=== PATIENT | female | born 1995 | race Caucasian/White ===

== ENCOUNTER 2019-07-23 08:17 | Outpatient (CLI) | payer MEDICAID, SELFPAY ==
[2019-07-23] VITALS (13 sets, daily range): BP systolic 105–125; BP diastolic 58–73; PULSE 58–93; RESP 16–18; TEMP 36.8; BMI 26.3
[2019-07-23] MEDS: acetaminophen 325 mg Tablet 650 MG PO (09:12)
[2019-07-23 10:21] LABS: Bilirubin Urine Neg (Negative); Blood Urine Neg (Negative); Glucose Urine UA Norm (Normal); Ketones Urine Negative (Negative); Nitrate Urine Negative (Negative); Protein Urine Neg (Negative); Urine Appearance SL Hazy (CLEAR); Urine Color Yellow (Yellow); Urobilinogen Urine Norm (Negative); pH Urine 6.5 (5-7)
[2019-07-23 10:22] LABS: Bacteria Urine 1+; Leukocyte Esterase Urine Negative (Negative); RBC Urine 0-4 /hpf (0-2); WBC Urine 0-4 /hpf (0-5)
== END 2019-07-23 11:24 | disposition home or self-care (01) ==
PROVIDERS: Family Provider Family Medicine; PCP Family Medicine; Visit Provider Family Medicine
DX: O26.899 Other specified pregnancy related conditions, unspecified trimester (principal); Z3A.00 Weeks of gestation of pregnancy not specified; R10.9 Unspecified abdominal pain
CPT/HCPCS: 59025; 81001; 99211

== ENCOUNTER 2019-07-28 20:30 | Outpatient (CLI) | payer MEDICAID, SELFPAY ==
[2019-07-28 20:30] VITALS: BMI 26.3
[2019-07-28 21:50] VITALS: BP 114/64; PULSE 72; RESP 16; TEMP 36.8
[2019-07-28 21:51] LABS: Add Urine Microscopic? NO
[2019-07-28 22:07] LABS: Blood Urine Neg (Negative); Glucose Urine UA Norm (Normal); Ketones Urine 3+ (Negative); Protein Urine Neg (Negative); Urine Appearance Clear (CLEAR); Urine Color Yellow (Yellow); pH Urine 5 (5-7)
[2019-07-28 22:08] LABS: Bilirubin Urine 1+ (NEGATIVE); Leukocyte Esterase Urine Negative (Negative); Nitrate Urine Negative (Negative); Urobilinogen Urine 1 mg/dL (Negative)
[2019-07-28 22:30] VITALS: BP 114/64; PULSE 72; RESP 16; TEMP 36.8
== END 2019-07-28 22:34 | disposition home or self-care (01) ==
PROVIDERS: Family Provider Family Medicine; PCP Family Medicine; Visit Provider Family Medicine
DX: O36.8190 Decreased fetal movements, unspecified trimester, not applicable or unspecified (principal); Z3A.00 Weeks of gestation of pregnancy not specified; M54.9 Dorsalgia, unspecified; M25.559 Pain in unspecified hip; R10.2 Pelvic and perineal pain
CPT/HCPCS: 81003; 99211

== ENCOUNTER 2019-08-08 13:43 | Outpatient (CLI) | payer MEDICAID, SELFPAY ==
[2019-08-08 14:04] VITALS: RESP 15; TEMP 36.9
[2019-08-08 14:05] VITALS: BP 114/61; PULSE 88
[2019-08-08 14:19] VITALS: BP 0/0
[2019-08-08 14:21] VITALS: BP 123/71; PULSE 87
[2019-08-08 14:29] LABS: Nitrazine Paper, PH Negative
[2019-08-08 14:49] VITALS: BMI 25.9
== END 2019-08-08 14:30 | disposition home or self-care (01) ==
LOC: OPOB 13:53 → OBGYN 14:26 → OPOB 08-09 12:38
PROVIDERS: Family Provider Family Medicine; PCP Family Medicine; Visit Provider Family Medicine
DX: O26.899 Other specified pregnancy related conditions, unspecified trimester (principal); Z3A.00 Weeks of gestation of pregnancy not specified; R10.9 Unspecified abdominal pain; N89.8 Other specified noninflammatory disorders of vagina
CPT/HCPCS: 59025; 83986; 99211

== ENCOUNTER 2019-09-02 01:48 | Inpatient (IN) | payer MEDICAID, SELFPAY ==
[2019-09-01 23:41] VITALS: BP 126/67; PULSE 83
[2019-09-02] VITALS (57 sets, daily range): BP systolic 0–144; BP diastolic 0–83; PULSE 57–130; RESP 16–21; TEMP 36.4–36.9; O2SAT 82–100; BMI 26.9; BMI 31.1
[2019-09-02] MEDS: lactated ringers 1,000 ML 999 ML IV (02:22)
[2019-09-02] MEDS: ampicillin 2,000 MG in sodium chloride 0.9% (plus) 50 ML 100 MG IV (02:22)
[2019-09-02] MEDS: fentaNYL 50 mcg/mL INJ 2mL IV (02:24)
[2019-09-02 02:44] LABS: Basophils % 0.2 %; Eosinophils % 0.1 %; Hematocrit 40.8 % (37.0-47.0); Hemoglobin 13.9 g/dL (11.5-15.3); Lymphocytes # 2.5 10^3/uL (0.8-4.8); Lymphocytes % 15.1 %; Mean Corpuscular HGB Conc 34.1 g/dL (30.0-36.0); Mean Corpuscular Hemoglobin 32.2 pg (28.0-34.0); Mean Corpuscular Volume 94.4 fL (81-99); Mean Platelet Volume 10.3 fL (7.4-10.4); Neutrophils % 78.1 %; Nucleated Red Blood Cells % 0 %; Platelet Count 172 10^3/cmm (130-400); Red Blood Count 4.32 10^6/uL (4.1-5.3); Red Cell Distribution Width 13.6 % (12.1-15.1); White Blood Count 16.6 10^3/uL (4.0-10.0)
--- NOTE | 2019-09-02 03:45 | P.ANESASSM_ITS ---
Pre-Anesthetic Assessment Pre-Anesthetic Assessment: Height/Weight: Height 1.7 m Weight 90.265 kg Pulse Resp BP Pulse Ox 81 20 H 127/73 98 09/02/19 03:41 09/02/19 02:24 09/02/19 03:41 09/02/19 03:40 Preop Diagnosis: labor pain Proposed Procedure: labor epidural Was Beta Yayo taken within 24 hours: N/A Social: Social History: Tobacco Packs per day: 07/24 Exam: Pre-Anes Outpt Exam: alert, oriented x 3, clear to auscultation bilaterally and regular rate & rhythm Airway: Submandibular: WNL Cervical ROM: WNL MP: 1 Pulmonary: Pulmonary: None reported CV/HEM: CV/HEM: None reported : : None reported Hepatic: Hepatic: None reported GI: GI: None reported Metabolic: Metabolic: None reported Musc/skel: Musc/skel: None reported Neuropsych: Neuropsych: Anxiety and Depression Anesthetic Plan: ASA status: 2 Anesthesia: Anesthesia Evaluation and R egional (specify below) Risk of > 500 ml blood loss (7ml/kg in children): No Meds/Allergies Current Medications: Current Medications Generic Name Dose Route Start Last Admin Trade Name Freq PRN Reason Stop Dose Admin Fentanyl 25 - 100 mcg 09/02/19 01:46 09/02/19 02:24 Sublimaze IV 25 mcg Q1H PRN Administration SEVERE PAIN Lactated Ringer's 1,000 mls @ 999 m ls/hr 09/02/19 01:46 09/02/19 02:22 Lactated Ringers IV 999 mls/hr .Q1H1M PRN Administration Per L&D Rescitati on Protocol Ampicillin Sodium 2,000 mg/ 50 mls @ 100 mls/ hr 09/02/19 02:00 09/02/19 02:22 Sodium Chloride IV 100 mls/hr ONCE JULIA Administration Protocol [facility] Anesthesia Female Reproductive History: : 1 Data Anesthesia CBC & Chem 7: 09/02/19 02:34 Other Labs: Laboratory Results - last 48 hr 09/02/19 02:34 WBC 16.6 H RBC 4.32 Hgb 13.9 Hct 40.8 MCV 94.4 MCH 32.2 MCHC 34.1 RDW 13.6 Plt Count 172 MPV 10.3 Neut % (Auto) 78.1 Lymph % (Auto) 15.1 [place] % (Auto) 6.0 Eos % (Auto) 0.1 Baso % (Auto) 0.2 Neut # (Auto) 13.0 H Lymph # (Auto) 2.5 [place] # (Auto) 1.0 H Eos # (Auto) 0.0 Baso # (Auto) 0.0 Nucleated RBC % (auto) 0 Nucleated RBCs # 0.0 Cardiac Studies: No Data to Display
--- NOTE | 2019-09-02 03:48 | ANES.PROC ---
Anesthesia Procedures Procedure/Date: 09/02/19 Epidural: Time Out Performed: Yes Consents Signed: Procedure Consent Consent: requested by attending/covering physician, from patient, risks and benefits reviewed and patient agrees to proceed Lumbar Level: L3-L4 Epidural position: sitting Epidural procedure: sterile prep of area, 1% lidocaine to numb the area (3 cc skin wheel), 18 g needle, negative for paresthesia passed, neg for paresthesia, test dose given (3 cc), 0.2% Ropivacaine bolus ml (8 cc), placed PCEA (13 mls/hr 5 cc Q 10 min x3 ), sterile dressing applied and 0.2% Ropiavacaine @ mls/hr
[2019-09-02] MEDS: ampicillin 1,000 MG in sodium chloride 0.9% (plus) 50 ML 100 MG IV (06:15)
[2019-09-02] MEDS: oxytocin 30 UNIT/500 ML BAG 600 UNIT IV (08:17)
[2019-09-02] MEDS: prenatal vitamin Capsule 1 CAP PO (11:39)
[2019-09-02] MEDS: lanolin oint 7 gm 1 APPLIC TOPICAL (11:40)
[2019-09-02] MEDS: benzocaine-menthol 78 gm Canister 1 SPRAY TOPICAL (11:40)
[2019-09-02] MEDS: docusate sodium 100 mg Capsule PO (11:40)
[2019-09-02 13:07] LABS: Amphetamines Screen Urine Negative (Negative); Barbiturates Screen Urine Negative (Negative); Benzodiazepines Screen Urine Negative (Negative); Cocaine Screen Urine Negative (Negative); Opiate Screen Urine Negative (Negative); PCP Screen Urine Negative (Negative); THC Screen Urine Negative (Negative)
--- NOTE | 2019-09-02 18:55 | P.PCNOB_ITS ---
Delivery Note: Date of delivery: September 02, 2019 Pre-Delivery Course: The patient presented to the hospital in active labor. She was given group B strep antibiotics per protocol. An epidural was placed. An amniotomy was performed. She progressed to complete without difficulty. Delivery: DELIVERY: The patient progressed to complete without difficulty. She delivered a male with a weight of 5 pounds 11 ounces with Apgars of 8, 9. The baby was delivered from the WOODROW position. The baby's mouth and nose were suctioned at the site of the perineum. The baby was then completely delivered and placed on the mother's abdomen. The cord was then clamped and cut. There was a nuchal cord x1. There was no meconium. The placenta and 3 vessel cord were delivered intact shortly thereafter. The perineum and vaginal vault were carefully examined. No lacerations were noted. Both the mother and the baby were in stable condition. A&P Assessment and plan (1) 39 weeks gestation of : Status: Acute Code(s): Z3A.39 - 39 weeks gestation of (2) Spontaneous vaginal delivery: Status: Acute Code(s): O80 - Encounter for full-term uncomplicated delivery Coding Level of Care Code Acute Instructor Modeling for Chg Fwd Diagnoses 39 weeks gestation of Z3A.39 Spontaneous vaginal delivery O80
[2019-09-02 20:49] LABS: Hematocrit 40.5 % (37.0-47.0); Hemoglobin 13.5 g/dL (11.5-15.3); Mean Corpuscular HGB Conc 33.3 g/dL (30.0-36.0); Mean Platelet Volume 10.4 fL (7.4-10.4); Platelet Count 186 10^3/cmm (130-400); Red Blood Count 4.09 10^6/uL (4.1-5.3); Red Cell Distribution Width 13.7 % (12.1-15.1)
[2019-09-03 06:00] VITALS: BP 97/68; PULSE 70; RESP 16; TEMP 36.4
--- NOTE | 2019-09-03 07:26 | PM.OBGYDC ---
Discharge Providers SUPERVISOR FRONT Date of Admission: 09/02/19 01:48 Date of Discharge: 09/03/19 Attending Provider at Admission: Liu Lenz MD Attending Provider at Discharge: Mickey Camarillo MD Primary Care Provider: Mickey Camarillo MD Diagnoses at Discharge Discharge Diagnosis (1) 39 weeks gestation of : Status: Acute (2) Spontaneous vaginal delivery: Status: Acute Reason for Visit Reason for Visit: Reason For Visit: contractions Hospital Course Hospital Course: Patient arrived to the hospital in spontaneous labor at 39 weeks gestation. She delivered by spontaneous vaginal delivery a healthy, viable male infant with no problems. Apgars were 8 and 9 at 1 5 minutes respectively. Since delivery, the patient is done extremely well. She is breast-feeding fair and appears to be very stable to be discharged home. Discharge Summary: Patient is discharged in stable condition at this time. Information Peripartum Data: Infant Delivery Method: Vaginal Physical Exam Const: COMMON NORMALS: no apparent distress and oriented x3 GENERAL APPEARANCE: comfortable and well kempt ORIENTATION/CONSCIOUSNESS: Yes awake HENMT: COMMON NORMALS: normocephalic HEAD & SCALP: normocephalic Neck/C-Spine: COMMON NORMALS: full ROM Chest: COMMONS NORMALS: inspection of chest normal Resp: COMMON NORMALS: normal respiratory effort, no retractions, no use of accessory muscles and clear to auscultation bilaterally AUSCULTATION: clear to auscultation bilaterally Cardio: COMMON NORMALS: regular rate and regular rhythm RATE: regular rate RHYTHM: regular rhythm GI: COMMON NORMALS: soft to palpation INSPECTION: Yes normal to inspection PALPATION: Yes soft : COMMON NORMALS: Yes no CVA tenderness BLADDER/KIDNEY EXAM: Yes no CVA tenderness Back/Pelvis: COMMON NORMALS: no CVA tenderness Extremity: COMMON NORMALS: full ROM GENERAL: Yes normal exam except as noted Neuro: COMMON NORMALS: oriented x3 Psych: APPEARANCE: Yes well kempt Discharge Data Data Completed and Pending: Labs from last 24 hours 09/02/19 09/02/19 20:25 12:03 WBC 20.0 H RBC 4.09 L Hgb 13.5 Hct 40.5 MCV 99.0 MCH 33.0 MCHC 33.3 RDW 13.7 Plt Count 186 MPV 10.4 Urine Opiates Scre en Negative Ur Barbiturates Sc reen Negative Ur Phencyclidine S crn Negative Ur Amphetamines Sc reen Negative U Benzodiazepines Scrn Negative Urine Cocaine Scre en Negative U Marijuana (THC) Screen Negative Vitals: Last Vital Signs Temp 97.6 F 09/03/19 06:00 Pulse 70 09/03/19 06:00 Resp 16 09/03/19 06:00 BP 97/68 09/03/19 06:00 Pulse Ox 97 09/02/19 18:40 Discharge Plan Discharge Patient Disposition: Home, Self-Care Condition: Stable Prescriptions: New ibuprofen 800 mg Tablet 800 mg PO TID Qty: 90 RF: 2 docusate sodium 100 mg Capsule 100 mg PO BID Qty: 60 RF: 1 Continued Vitamin 27 mg iron- 0.8 mg Tablet 1 tab PO DAILY RF: 0 Discharge Orders: Discharge Order (Routine); Ordered 09/03/19 Ordered By: Mickey Camarillo Referrals: Mickey Camarillo MD [Primary Care Provider] - Discharge Diet: Usual diet Discharge Activity: Resume usual activity Discharge Attestations SUPERVISOR FRONT Time Spent in Discharge Care*: less than 30 min Specific Discharge Activities: Specific discharge activities: educating patient, educating and/or supporting family/caregiver and documenting/other paperwork Status at Discharge: Cognitive status at discharge: cognitively intact, Behavioral status at discharge: cooperative, Functional status at discharge: independent ambulation Overall status at discharge: patient is back to baseline Coding Level of Care Code Acute Automotive Glass Mechanic for Chg Fwd Diagnoses 39 weeks gestation of Z3A.39 Spontaneous vaginal delivery O80
[2019-09-03] MEDS: prenatal vitamin Capsule 1 CAP PO (08:42)
[2019-09-03] MEDS: docusate sodium 100 mg Capsule PO (08:42)
[2019-09-03 08:45] VITALS: BP 115/69; PULSE 82; RESP 17; TEMP 36.4
[2019-09-03 09:20] VITALS: BP 115/59; PULSE 82; RESP 17; TEMP 36.4
[2019-09-03] MEDS: measles,mumps,rubella pf Vial (w/diluent) 0.5 ML SUBCUT (09:34)
[2019-09-03 09:47] VITALS: BP 115/59; RESP 17; TEMP 36.4
== END 2019-09-03 09:56 | disposition home or self-care (01) | DRG 807 ==
LOC: OBGYN 09-03 07:25 → OPOB 09-03 07:47
PROVIDERS: Admitting Provider Family Medicine; Family Provider Family Medicine; PCP Family Medicine; Visit Provider Family Medicine
DX: O99.824 Streptococcus B carrier state complicating childbirth (principal); Z37.0 Single live birth; Z3A.39 39 weeks gestation of pregnancy; O69.81X0 Labor and delivery complicated by cord around neck, without compression, not applicable or unspecified; Z23 Encounter for immunization
CPT/HCPCS: 12345; 36415; 51702; 59409; 80307; 85025; 85027; 90471; 90686; 90707; 96372; 98960; 99211; J0290; J2795; J3010

== ENCOUNTER 2021-02-28 11:15 | Outpatient (CLI) | payer MEDICAID, SELFPAY ==
[2021-02-28 11:15] VITALS: BMI 32.4
[2021-02-28 11:34] VITALS: BP 123/60; PULSE 79; TEMP 36.3
[2021-02-28 11:43] VITALS: RESP 17
[2021-02-28 11:49] VITALS: BP 112/59; PULSE 71
[2021-02-28 12:04] VITALS: BP 113/65; PULSE 85
[2021-02-28 12:19] VITALS: BP 120/60; PULSE 79
[2021-02-28 12:30] LABS: Bilirubin Urine Neg (Negative); Blood Urine Neg (Negative); Glucose Urine UA Norm (Normal); Ketones Urine 1+ (Negative); Leukocyte Esterase Urine 2+ (Negative); Nitrate Urine Negative (Negative); Protein Urine Neg (Negative); Sulfosalicylic Acid Urine Negative (Negative); Urine Appearance Cloudy (CLEAR); Urine Color Yellow (Yellow); Urobilinogen Urine 1 mg/dL (Negative); pH Urine 8 (5-7)
[2021-02-28 12:31] LABS: RBC Urine 0-4 /hpf (0-2); WBC Urine 25-40 /hpf (0-5)
[2021-02-28 12:32] LABS: Add Urine Culture? No; Amorphous Sediment Urine 2+ /hpf; Bacteria Urine 1+ /hpf; Coarse Granular Casts Urine RARE /lpf; Mucus Urine TRACE /hpf; Squamous Epithelial Cell Urine 25-40 /hpf (0-5)
== END 2021-02-28 12:35 | disposition home or self-care (01) ==
LOC: OPOB 11:19 → OBGYN 11:21
PROVIDERS: PCP Family Medicine; Visit Provider Family Medicine
DX: O26.899 Other specified pregnancy related conditions, unspecified trimester (principal); Z3A.00 Weeks of gestation of pregnancy not specified; R10.9 Unspecified abdominal pain
CPT/HCPCS: 59025; 81001; 99211

== ENCOUNTER 2021-03-05 22:24 | Outpatient (CLI) | payer MEDICAID, SELFPAY ==
[2021-03-05 22:34] VITALS: BP 139/65; PULSE 90
[2021-03-05 22:49] VITALS: BMI 32.5
[2021-03-05 23:01] LABS: Glucose Urine UA Norm (Normal); Ketones Urine 1+ (Negative); Protein Urine Neg (Negative); Specific Gravity, Urine 1.005 (1.005-1.030); Urine Appearance Clear (CLEAR); Urine Color Yellow (Yellow); pH Urine 7 (5-7)
[2021-03-05 23:02] LABS: Bilirubin Urine Neg (Negative); Blood Urine Neg (Negative); Leukocyte Esterase Urine 1+ (Negative); Nitrate Urine Negative (Negative); Urobilinogen Urine 8 mg/dL (Negative)
[2021-03-05 23:03] LABS: Add Urine Culture? No; Bacteria Urine TRACE /hpf; RBC Urine 0-4 /hpf (0-2)
[2021-03-05 23:26] VITALS: BP 97/53; PULSE 83
[2021-03-05 23:35] VITALS: RESP 16
--- NOTE | 2021-03-07 08:09 | PC.NURSE ---
Left voicemail on [facility] line. Prescription for amoxicillin 500 mg BID for 7 days, dispense 14, no refills per Dr. Camarillo's order.
== END 2021-03-05 23:35 | disposition home or self-care (01) ==
LOC: OPOB 22:25 → OBGYN 22:27
PROVIDERS: PCP Family Medicine; Visit Provider Family Medicine
DX: O26.899 Other specified pregnancy related conditions, unspecified trimester (principal); Z3A.00 Weeks of gestation of pregnancy not specified; R10.9 Unspecified abdominal pain
CPT/HCPCS: 59025; 81001; 99211

== ENCOUNTER 2021-03-17 13:25 | Outpatient (CLI) | payer MEDICAID, SELFPAY ==
[2021-03-17 13:25] VITALS: BMI 33.3
[2021-03-17 13:48] VITALS: BP 130/71; PULSE 96
[2021-03-17 14:03] VITALS: BP 126/71; PULSE 81
[2021-03-17 14:18] VITALS: BP 120/67; PULSE 84
[2021-03-17 14:33] VITALS: BP 130/66; PULSE 82
[2021-03-17 14:48] VITALS: BP 119/59; PULSE 76
[2021-03-17 15:01] VITALS: RESP 17
== END 2021-03-17 15:10 | disposition home or self-care (01) ==
LOC: OPOB 13:31 → OBGYN 13:32
PROVIDERS: PCP Family Medicine; Visit Provider Family Medicine
DX: O26.899 Other specified pregnancy related conditions, unspecified trimester (principal); Z3A.00 Weeks of gestation of pregnancy not specified; R10.9 Unspecified abdominal pain
CPT/HCPCS: 59025; 99211

== ENCOUNTER 2021-03-25 22:20 | Inpatient (IN) | payer MEDICAID, SELFPAY ==
[2021-03-25 19:40] VITALS: BMI 34.4
[2021-03-25 19:43] VITALS: BP 116/64; PULSE 90; TEMP 36.5
[2021-03-25 21:45] VITALS: BP 122/61; PULSE 76
[2021-03-25] MEDS: lactated ringers 1,000 ML 999 ML IV (23:00)
[2021-03-25 23:24] LABS: Basophils % 0.2 %; Eosinophils # 0.1 10^3/uL (0.0-0.8); Eosinophils % 0.6 %; Hematocrit 36.3 % (37.0-47.0); Hemoglobin 12.2 g/dL (11.5-15.3); Lymphocytes # 1.9 10^3/uL (0.8-4.8); Lymphocytes % 16.1 %; Mean Corpuscular HGB Conc 33.6 g/dL (30.0-36.0); Mean Corpuscular Hemoglobin 31.8 pg (28.0-34.0); Mean Corpuscular Volume 94.5 fl (81-99); Mean Platelet Volume 10.2 fL (7.4-10.4); Monocytes # 0.9 10^3/uL (0.2-0.9); Monocytes % 7.4 %; Neutrophils # 8.94 10^3/uL (1.8-7.7); Neutrophils % 74.7 %; Nucleated Red Blood Cells % 0 %; Platelet Count 249 10^3/cmm (130-400); Red Blood Count 3.84 10^6/uL (4.1-5.3); Red Cell Distribution Width 14.1 % (12.1-15.1)
[2021-03-26] VITALS (29 sets, daily range): BP systolic 107–145; BP diastolic 53–92; PULSE 57–90; RESP 16–18; TEMP 35.9–36.2; O2SAT 100
[2021-03-26] MEDS: lactated ringers 1,000 ML 999 ML IV (00:28)
--- NOTE | 2021-03-26 00:39 | P.ANESASSM_ITS ---
Pre-Anesthetic Assessment Pre-Anesthetic Assessment: Height/Weight: Height 1.7 m Weight 99.79 kg Temp Pulse BP Pulse Ox 97.7 F 78 127/75 100 03/25/21 19:43 03/26/21 00:32 03/26/21 00:28 03/26/21 00:32 Preop Diagnosis: labor pain Proposed Procedure: labor epidural Was Beta Yayo taken within 24 hours: N/A Was Clonidine taken within 24 hours: N/A Last intake: 03/25/211944 Social: Social History: Tobacco Comment: vapes Exam: Pre-Anes Outpt Exam: alert, oriented x 3 and clear to auscultation bilaterally Airway: Submandibular: WNL Cervical ROM: WNL MP: 2 Dentition: Other Additional comments: tongue piercing History/ROS: No significant history except as noted Pulmonary: Pulmonary: None reported CV/HEM: CV/HEM: None reported : : None reported Hepatic: Hepatic: None reported GI: GI: GERD and None reported Metabolic: Metabolic: None reported Musc/skel: Musc/skel: None reported Neuropsych: Neuropsych: None reported Anesthetic Plan: ASA status: 2 Anesthesia: Regional (specify below) Risk of > 500 ml blood loss (7ml/kg in children): No Meds/Allergies Current Medications: Current Medications Generic Name Dose Route Start Last Admin Trade Name Freq PRN Reason Stop Dose Admin Ropivacaine 200 mg in 100 mls @ 13 mls/hr 03/25/21 23:15 03/26/21 00:29 Naropin Premix EPIDURAL 13 mls/hr .Q7H42M JULIA Administration Lactated Ringer's 1,000 mls @ 999 m ls/hr 03/25/21 23:09 03/26/21 00:28 Lactated Ringers IV 999 mls/hr .Q1H1M PRN Administration See label comment s Lactated Ringer's 1,000 mls @ 999 m ls/hr 03/25/21 23:09 03/26/21 00:29 Lactated Ringers IV Infused .Q1H1M PRN Infusion Per L&D Rescitati on Protocol [facility] Anesthesia Female Reproductive History: : 2 Data Anesthesia CBC & Chem 7: 03/25/21 22:45 Other Labs: Laboratory Results - last 48 hr 03/25/21 22:45 WBC 12.0 H RBC 3.84 L Hgb 12.2 Hct 36.3 L MCV 94.5 MCH 31.8 MCHC 33.6 RDW 14.1 Plt Count 249 MPV 10.2 Neut % (Auto) 74.7 Lymph % (Auto) 16.1 [place] % (Auto) 7.4 Eos % (Auto) 0.6 Baso % (Auto) 0.2 Neut # (Auto) 8.94 H Lymph # (Auto) 1.9 [place] # (Auto) 0.9 Eos # (Auto) 0.1 Baso # (Auto) 0.0 Nucleated RBC % (auto) 0 Nucleated RBCs # 0.0 Cardiac Studies: No Data to Display
[2021-03-26] MEDS: oxytocin 30 UNIT/500 ML BAG 600 UNIT IV (00:45)
--- NOTE | 2021-03-26 00:46 | ANES.PROC ---
Anesthesia Procedures Procedure/Date: 03/26/21 Epidural: Time Out Performed: Yes Consents Signed: Procedure Consent Consent: requested by attending/covering physician, from patient and risks and benefits reviewed Lumbar Level: L3-L4 Epidural position: sitting Epidural procedure: sterile prep of area, 1% lidocaine to numb the area, negative for paresthesia passed, test dose given, 1.5% xylocaine 1:200k epi, 0.2% Ropivacaine bolus ml (13), placed PCEA (13 ml/hr), no systemic response, L.U.D. no apparent complications and 0.2% Ropiavacaine @ mls/hr (13ml/hr) Additional Comments: JUNIOR at 7 cm catheter threaded to 14 cm
--- NOTE | 2021-03-26 01:20 | PM.OPHPUD ---
Labor & Delivery H&P Update Date of Procedure: March 26, 2021 Date H&P Performed: 03/25/21 H&P update information: I have reviewed H&P completed within last 30 days, I have examined patient prior to procedure and Changes to prior documentation as noted here (patient was seen yesterday afternoon at the clinic and was approximately 3 cm dilated. She came in later 3 to 4 cm dilated and quickly is dilated and presently is 9 cm dilated.) Admission Diagnosis: Preop diagnosis: labor pain Primary indication for procedure: Term in spontaneous labor. Planned procedure: Spontaneous vaginal delivery.
[2021-03-26] MEDS: dextrose 5%-lactated ringers 1,000 ML 125 ML IV (02:00)
--- NOTE | 2021-03-26 02:14 | PM.DELIVERY ---
Delivery Note: Date of delivery: March 26, 2021 This 25-year-old at arrived at [facility] labor and delivery department at 39 weeks gestation. She was approximately 3-1/2 cm dilated upon arrival and al often. She was getting more uncomfortable and was admitted to the hospital. She dilated fairly quickly especially after epidural anesthesia was placed and dilated to complete cervical dilatation. The patient pushed for several contractions and was able to deliver by spontaneous vaginal delivery at 00 43 a healthy, viable female . The 's mouth and nose were suctioned at the perineum and the was then placed on mother's abdomen. After approximately 1 minute the umbilical cord was clamped and then cut by the infant's father. The umbilical cord had 3 blood vessels. There was no nuchal cord. The placenta delivered spontaneously at 00 45. Apgars were 8 and 9 at 1 and 5 minutes respectively and the weighed 7 pounds 1 ounces. There was a second-degree midline episiotomy prior to delivery with no extension. This was repaired using Vicryl suture in a layered fashion. Local anesthesia was also applied with 2% lidocaine without epinephrine for the episiotomy and repair. There were no complications. Mother and infant are doing well and estimated blood loss was approximately 224 mL. Pre-Delivery Course: This patient was followed by this physician throughout her course. There were no major problems or concerns throughout her course. Her blood type was A+ with antibody screen negative. Hepatitis B, hepatitis C, RPR and HIV were negative. Rubella was immune and group B strep was negative. Covid testing was also negative. The patient was seen the day prior to the day of delivery in the office and was felt at that time to probably be in early labor. Delivery: Spontaneous vaginal delivery. Post-Delivery Status: Patient is doing well at this time and will be followed for routine care. A&P Assessment and plan (1) Normal spontaneous vaginal delivery: Patient is doing well at this time and will be followed for routine care. We will adjust treatment and orders as necessary. Status: Acute Coding Level of Care Code Acute Business Operations Consultant for Bishnu Alba Diagnoses Normal spontaneous vaginal delivery O80
[2021-03-26] MEDS: lidocaine 2% INJ 20 mL INJECTION (03:56)
[2021-03-26] MEDS: lactated ringers 1,000 ML 125 ML IV (03:57)
[2021-03-26 05:04] LABS: Amphetamines Screen Urine Negative (Negative); Barbiturates Screen Urine Negative (Negative); Benzodiazepines Screen Urine Negative (Negative); Cocaine Screen Urine Negative (Negative); Opiate Screen Urine Negative (Negative); PCP Screen Urine Negative (Negative); THC Screen Urine Positive (Negative)
[2021-03-26] MEDS: HYDROcodone-acetaminophen 5-325 mg Tablet PO (05:59)
[2021-03-26] MEDS: prenatal vitamin Capsule 1 CAP PO (09:59)
[2021-03-26] MEDS: docusate sodium 100 mg Capsule PO ×2 (09:59→18:57)
[2021-03-26] MEDS: ibuprofen 800 mg tablet PO ×3 (09:59→20:18)
[2021-03-26 16:22] LABS: Hematocrit 35.7 % (37.0-47.0); Hemoglobin 11.9 g/dL (11.5-15.3); Mean Corpuscular HGB Conc 33.3 g/dL (30.0-36.0); Mean Corpuscular Hemoglobin 32.2 pg (28.0-34.0); Mean Corpuscular Volume 96.7 fl (81-99); Mean Platelet Volume 10.1 fL (7.4-10.4); Platelet Count 233 10^3/cmm (130-400); Red Blood Count 3.69 10^6/uL (4.1-5.3); Red Cell Distribution Width 14.1 % (12.1-15.1); White Blood Count 12.9 10^3/uL (4.0-10.0)
--- NOTE | 2021-03-27 03:50 | PC.NURSE ---
pt educated on use of slow-flow nipple and paced feeding.
[2021-03-27 04:09] VITALS: BP 117/61; PULSE 65; TEMP 36.1
--- NOTE | 2021-03-27 08:01 | ANE.PACU2 ---
Inpatient post-anesthesia follow up: Airway intact: Yes Vital signs: Temperature 97.8 F Pulse Rate 75 Respiratory Rate 16 Blood Pressure 120/59 Pulse Oximetry 100 Oxygen Delivery Me thod Room Air Oxygen Flow Rate Fraction of Inspir ed Oxygen Hydration adequate: Yes Nausea and vomiting: No Pain level: 2 Mental status: Baseline
--- NOTE | 2021-03-27 08:06 | P.DS_ITS ---
Discharge Providers CUSTOMER ACCOUNT COORDINATOR Date of Admission: 03/25/21 22:20 Date of Discharge: 03/27/21 Attending Provider at Admission: Mickey Camarillo MD Attending Provider at Discharge: Mickey Camarillo MD Primary Care Provider: Mickey Camarillo MD Diagnoses at Discharge Discharge Diagnosis (1) Normal spontaneous vaginal delivery: Status: Acute Reason for Visit Reason for Visit: Contractions Hospital Course Hospital Course Patient delivered by spontaneous vaginal delivery early yesterday morning with no problems or concerns. She had onset of labor at home at 38 weeks and 6 days and delivered at 39 weeks gestation. She has had mild lochia and no significant clots or cramping. She is ambulating well and tolerating a regular diet and is felt to be stable for discharge home. Information Peripartum Data: Infant Delivery Method: Vaginal Physical Exam Const: COMMON NORMALS: no acute distress GENERAL APPEARANCE: cooperative and comfortable HENMT: COMMON NORMALS: moist oral mucous membranes Resp: COMMON NORMALS: normal respiratory effort, No retractions, No use of accessory muscles and clear to auscultation bilaterally AUSCULTATION: clear to auscultation bilaterally Cardio: COMMON NORMALS: regular rate, regular rhythm and No murmurs present (Cardio) RATE: regular rate RHYTHM: regular rhythm GI: COMMON NORMALS: Normal to inspection, nondistended, normoactive bowel sounds present and Soft to palpation (Fundus is firm and well below the umbilicus.) PALPATION: Yes Soft to palpation (Fundus is firm and well below the umbilicus.) Extremity: COMMON NORMALS: normal to inspection, full ROM, no calf tenderness and no pedal edema Neuro: COMMON NORMALS: no focal motor deficits and no sensory deficits noted Psych: COMMON NORMALS: mental status grossly normal, cooperative and normal affect Skin: COMMON NORMALS: no rashes or lesions noted GENERAL SKIN EXAM: no rashes or lesions noted Discharge Data Data Completed and Pending: Labs from last 24 hours 03/26/21 15:35 WBC 12.9 H RBC 3.69 L Hgb 11.9 Hct 35.7 L MCV 96.7 MCH 32.2 MCHC 33.3 RDW 14.1 Plt Count 233 MPV 10.1 Vitals: Last Vital Signs Temp 97.0 F L 03/27/21 04:09 Pulse 65 03/27/21 04:09 Resp 16 03/26/21 21:55 BP 117/61 03/27/21 04:09 Pulse Ox 100 03/26/21 00:52 Discharge Plan Discharge Patient Disposition: Home Condition: Stable Prescriptions: New docusate sodium 100 mg Capsule 100 mg PO BID Qty: 60 RF: 1 ibuprofen 800 mg Tablet 800 mg PO TID Qty: 90 RF: 1 Continued Vitamin 27 mg iron- 0.8 mg Tablet 1 tab PO DAILY RF: 0 Discharge Orders: Discharge Order (Routine); Ordered 03/27/21 Ordered By: Mickey Camarillo Referrals: Mickey Camarillo MD [Primary Care Provider] - 6 Weeks Discharge Diet: Usual diet Discharge Activity: Resume usual activity Patient Instructions: Opioid Safety Discharge Attestations CUSTOMER ACCOUNT COORDINATOR Time Spent in Discharge Care*: less than 30 min Status at Discharge: Cognitive status at discharge: cognitively intact , Behavioral status at discharge: cooperative , Coding Level of Care Code Acute Blow Machine Tender Starch Spraying for Chg Fwd Diagnoses Normal spontaneous vaginal delivery O80
[2021-03-27] MEDS: docusate sodium 100 mg Capsule PO (10:02)
[2021-03-27] MEDS: ibuprofen 800 mg tablet PO (10:02)
[2021-03-27] MEDS: prenatal vitamin Capsule 1 CAP PO (10:02)
[2021-03-27 10:39] VITALS: TEMP 36.1
[2021-03-27 10:40] VITALS: BP 120/59; PULSE 75
[2021-03-27 11:07] VITALS: BP 120/59; PULSE 75; TEMP 36.6
== END 2021-03-27 11:00 | disposition home or self-care (01) | DRG 807 ==
LOC: OPOB 22:23 → OBGYN 22:23
PROVIDERS: Admitting Provider Family Medicine; PCP Family Medicine; Visit Provider Family Medicine
DX: O80 Encounter for full-term uncomplicated delivery (principal); Z37.0 Single live birth; Z3A.39 39 weeks gestation of pregnancy; Z20.822 Contact with and (suspected) exposure to COVID-19
CPT/HCPCS: 36415; 59409; 80306; 85025; 85027; 99211; J2795

== ENCOUNTER 2021-10-10 22:48 | Inpatient (IN) | payer MEDICAID, SELFPAY ==
[2021-10-10 22:59] VITALS: BP 159/83; PULSE 90; RESP 16; TEMP 36.4; O2SAT 98
[2021-10-10 23:02] VITALS: BMI 29.4
[2021-10-11 00:14] LABS: HCG Qualitative Urine. Negative (Negative)
[2021-10-11 00:18] LABS: Basophils # 0.1 10^3/uL (0.0-0.1); Basophils % 0.6 %; Eosinophils # 0.1 10^3/uL (0.0-0.8); Eosinophils % 0.9 %; Hematocrit 44.2 % (37.0-47.0); Hemoglobin 14.4 g/dL (11.5-15.3); Lymphocytes % 42.6 %; Mean Corpuscular HGB Conc 32.6 g/dL (30.0-36.0); Mean Corpuscular Hemoglobin 30.4 pg (28.0-34.0); Mean Corpuscular Volume 93.2 fl (81-99); Mean Platelet Volume 10.2 fL (7.4-10.4); Monocytes # 0.5 10^3/uL (0.2-0.9); Monocytes % 5.3 %; Neutrophils % 50.3 %; Nucleated Red Blood Cells % 0 %; Platelet Count 264 10^3/cmm (130-400); Red Blood Count 4.74 10^6/uL (4.1-5.3); Red Cell Distribution Width 12.7 % (12.1-15.1); White Blood Count 9.4 10^3/uL (4.0-10.0)
[2021-10-11 00:23] LABS: Alanine Aminotransferase 15 U/L (0-33); Albumin Level 4.7 g/dL (3.5-5.2); Alkaline Phosphatase 77 IU/L (35-105); Anion Gap 19.3 (5-19); Aspartate Amino Transferase 17 U/L (0-32); Blood Urea Nitrogen 7 mg/dL (6-20); Calcium 9.6 mg/dL (8.5-10.5); Carbon Dioxide 19 mmol/L (22-29); Chloride 103 mmol/L (98-107); Glomerular Filtration Rate 102.8 mL/min (90-130); Glucose 99 mg/dL (65-115); Osmolality Calculated 284 mOsm/kg (285-295); Potassium 3.3 mmol/L (3.5-5.1); Sodium 138 mmol/L (136-145); Total Bilirubin 0.5 mg/dL (0.15-1.2); Total Protein 7.7 g/dL (6.6-8.7)
[2021-10-11 00:25] LABS: Acetaminophen < 5.0 ug/mL (10-30); Alcohol Level < 10 mg/dL (0-10); Salicylate < 0.3 mg/dL (3-10)
--- NOTE | 2021-10-11 00:27 | ED.C_ITS ---
HPI - Psych General: Chief Complaint: Psychiatric Symptoms Stated Complaint: Depression Time Seen by Provider: 10/10/21 23:12 Source: patient Mode of arrival: ambulatory Limitations: no limitations History of Present Illness: 26-year-old female who states she has chronic depression since age 17. She states that she is also had complicated depression and has a 2-year-old and a 6-month-old. States she has been having increasing depression of late has not been taking her meds she states she has an outpatient appointment but feels like she needs to talk to someone now. She is not actively suicidal denies any thoughts of suicide average states that she has been more depressed. Denies any worsening proving factors. Associated symptoms: Reports depression Review of Systems Const: Denies: fever(s), chills, body aches or change in appetite Eyes: Denies: blurry vision or eye discomfort ENMT: Denies: throat pain or dental pain Card: Denies: chest pain Resp: Denies: dyspnea GI: Denies: abdominal pain, nausea, vomiting or diarrhea : Denies: dysuria Musc: Denies: neck pain or back pain Skin/Breast: Denies: rash Neuro: Denies: headache(s) Psych: Reports: depression Giacomo/Lymph: Denies: easy bruising All/Imm: Denies: urticaria PFSH ED PFSH: Medical History (Updated 10/11/21 @ 01:07 by Danielle Cage MD) Depression Social History (Updated 10/11/21 @ 00:28 by Danielle Cage MD) Substance/Drug Use: never Physical Exam Const: COMMON NORMALS: no acute distress, patient oriented x3 and healthy appearing HENMT: COMMON NORMALS: normocephalic and atraumatic HEAD & SCALP: normocephalic and atraumatic Eye: COMMON NORMALS: Equal, round and reactive pupils present and EOMs intact bilaterally PUPIL: Yes Equal, round and reactive pupils present Neck/C-Spine: COMMON NORMALS: full ROM and supple Chest: COMMONS NORMALS: normal inspection of the chest and normal palpation of entire chest wall Resp: COMMON NORMALS: normal respiratory effort, No retractions, No use of accessory muscles and clear to auscultation bilaterally AUSCULTATION: clear to auscultation bilaterally Cardio: COMMON NORMALS: regular rate, regular rhythm and No murmurs present (Cardio) RATE: regular rate RHYTHM: regular rhythm GI: COMMON NORMALS: Normal to inspection, nondistended, normoactive bowel sounds present, Soft to palpation, non-tender and no masses PALPATION: Yes Soft to palpation Extremity: COMMON NORMALS: normal to inspection and full ROM Neuro: COMMON NORMALS: patient oriented x3, moves all extremities and no focal motor deficits Psych: COMMON NORMALS: mental status grossly normal, Normal thought process present and cooperative THOUGHT PROCESS: Normal thought process present Skin: COMMON NORMALS: no rashes or lesions noted and no wounds GENERAL SKIN EXAM: no rashes or lesions noted Course Vital Signs: Vital signs: Vital Signs Temperature 97.6 F 10/10/21 22:59 Pulse Rate 90 10/10/21 22:59 Respiratory Rate 16 10/11/21 01:51 Blood Pressure 159/83 10/10/21 22:59 Pulse Oximetry 98 10/10/21 22:59 MDM - Psych Medical Decision Making Patient presents here with depression she is not suicidal had patient evaluated by Dr. Hernandez in the came to agreement for her to be admitted voluntarily for her depression she is in agreements spoke to psychiatrist and will admit at this time. Lab Data : 10/10/21 23:33 10/10/21 23:33 Laboratory Results WBC 9.4 10^3/uL (4.0-10.0) 10/10/21 23:33 RBC 4.74 10^6/uL (4.1-5.3) 10/10/21 23:33 Hgb 14.4 g/dL (11.5-15.3) 10/10/21 23:33 Hct 44.2 % (37.0-47.0) 10/10/21 23:33 MCV 93.2 fl (81-99) 10/10/21 23:33 MCH 30.4 pg (28.0-34.0) 10/10/21 23:33 MCHC 32.6 g/dL (30.0-36.0) 10/10/21 23:33 RDW 12.7 % (12.1-15.1) 10/10/21 23:33 Plt Count 264 10^3/cmm (130-400) 10/10/21 23:33 MPV 10.2 fL (7.4-10.4) 10/10/21 23:33 Neut % (Auto) 50.3 % 10/10/21 23:33 Lymph % (Auto) 42.6 % 10/10/21 23:33 [place] % (Auto) 5.3 % 10/10/21 23: Eos % (Auto) 0.9 % 10/10/21 23: Baso % (Auto) 0.6 % 10/10/21 23: Neut # (Auto) 4.70 10^3/uL (1.8-7.7) 10/10/21 23: Lymph # (Auto) 4.0 10^3/uL (0.8-4.8) 10/10/21 23: [place] # (Auto) 0.5 10^3/uL (0.2-0.9) 10/10/21 23: Eos # (Auto) 0.1 10^3/uL (0.0-0.8) 10/10/21 23: Baso # (Auto) 0.1 10^3/uL (0.0-0.1) 10/10/21 23: Nucleated RBC % (auto) 0 % 10/10/21 23: Nucleated RBCs # 0.0 /100WBC 10/10/21 23:33 Sodium 138 mmol/L (136-145) 10/10/21 23:33 Potassium 3.3 mmol/L (3.5-5.1) L 10/10/21 23: Chloride 103 mmol/L (98-107) 10/10/21 23: Carbon Dioxide 19 mmol/L (22-29) L 10/10/21 23:33 Anion Gap 19.3 (5-19) H 10/10/21 23:33 BUN 7 mg/dL (6-20) 10/10/21 23:33 Creatinine 0.7 mg/dL (0.5-0.9) 10/10/21 23:33 GFR Calculation 102.8 mL/min (90-130) 10/10/21 23:33 Glucose 99 mg/dL (65-115) 10/10/21 23:33 Calculated Osmolality 284 mOsm/kg (285-295) L 10/10/21 23: Calcium 9.6 mg/dL (8.5-10.5) 03/21/22 23:33 Total Bilirubin 0.5 mg/dL (0.15-1.2) 10/10/21 23:33 AST 17 U/L (0-32) 10/10/21 23:33 ALT 15 U/L (0-33) 10/10/21 23:33 Alkaline Phosphatase 77 IU/L (35-105) 10/10/21 23:33 Total Protein 7.7 g/dL (6.6-8.7) 10/10/21 23:33 Albumin 4.7 g/dL (3.5-5.2) 10/10/21 23:33 Globulin 3.0 g/dL (1.3-4.6) 10/10/21 23:33 HCG, Qual Negative (Negative) 10/10/21 23:33 Salicylates < 0.3 mg/dL (3-10) L 10/10/21 23:33 Urine Opiates Screen Negative ng/mL (Negative) 10/10/21 23:55 Acetaminophen < 5.0 ug/mL (10-30) L 10/10/21 23:33 Ur Barbiturates Screen Negative ng/mL (Negative) 10/10/21 23:55 Ur Phencyclidine Scrn Negative ng/mL (Negative) 10/10/21 23:55 Ur Amphetamines Screen Negative ng/mL (Negative) 10/10/21 23:55 U Benzodiazepines Scrn Negative ng/mL (Negative) 10/10/21 23:55 Urine Cocaine Screen Negative ng/mL (Negative) 10/10/21 23:55 U Marijuana (THC) Screen Positive ng/mL (Negative) H 10/10/21 23:55 Ethyl Alcohol < 10 mg/dL (0-10) 10/10/21 23:33 Discharge Plan Discharge Patient Disposition: Admitted As Inpatient Admit Provider: Tyrel Pruitt Clinical Impression: Depression Condition: Stable Coding Level of Care Code ED Lens Grinder Apprentice for Chg Fwd Exam Comprehensive
[2021-10-11 00:42] LABS: Amphetamines Screen Urine Negative (Negative); Barbiturates Screen Urine Negative (Negative); Benzodiazepines Screen Urine Negative (Negative); Cocaine Screen Urine Negative (Negative); Opiate Screen Urine Negative (Negative); PCP Screen Urine Negative (Negative); THC Screen Urine Positive (Negative)
[2021-10-11] MEDS: LORazepam 1 mg Tablet PO (01:25)
[2021-10-11 01:51] VITALS: RESP 16
[2021-10-11 01:53] VITALS: BP 132/84; PULSE 76; RESP 17; TEMP 36.8; O2SAT 99
--- NOTE | 2021-10-11 03:06 | PC.ADMIT ---
Admission Note: 26-year-old female who states she has chronic depression since age 17. She states that she is also had complicated depression and has a 2-year-old and a 6-month-old. States she has been having increasing depression of late has not been taking her meds she states she has an outpatient appointment but feels like she needs to talk to someone now. She is not actively suicidal denies any thoughts of suicide average states that she has been more depressed. Denies any worsening proving factors. Associated symptoms: Reports depression The patient,Inessa Noland,26 y/o, was given written information regarding hospital policies, unit procedures and contact persons. Vital Signs - 8 hr 10/10/21 22:59 10/11/21 01:51 10/11/21 01:53 Temperature 97.6 F 98.2 F Pulse Rate 90 76 Respiratory Rate 16 16 17 Blood Pressure 159/83 132/84 Pulse Oximetry 98 99
[2021-10-11 06:00] VITALS: BP 122/80; PULSE 86; RESP 16; TEMP 36.7; O2SAT 96
[2021-10-11] MEDS: ibuprofen 800 mg tablet PO ×2 (08:43→14:19)
[2021-10-11] MEDS: prenatal vitamin Capsule 1 CAP PO (08:43)
[2021-10-11] MEDS: docusate sodium 100 mg Capsule PO (08:43)
--- NOTE | 2021-10-11 10:50 | NPU.GN ---
[facility] Group Topic:Positive Coping Skills General Mood of Group: Inessa did not attend group today she was sleeping.
--- NOTE | 2021-10-11 10:50 | PC.NURSE ---
Behavior Pt has spent most of this morning crying in her room, she refused to eat breakfast or participate in this mornings group. Pt denies SI at this time, states she just misses her babies and so much. Nurse encouraged pt to eat and participate in group, nurse assisted pt in using the phone to call and speak with her family. Pt stated she felt a little better after speaking with her family and participated in the 10 a.m. group.
--- NOTE | 2021-10-11 11:41 | W.PM.NPUH&PS ---
Providers/Chief Complaint Admitting Physician: Tyrel Pruitt MD Primary Care Provider: Mickey Camarillo MD Chief Complaint: MHE HPI NPU History of Present Illness Inessa Noland is a 26 year old female admitted through our emergency department with the following report: 26-year-old female who states she has chronic depression since age 17.? She states that she is also had complicated depression and has a 2-year-old and a 6-month-old.? States she has been having increasing depression of late has not been taking her meds she states she has an outpatient appointment but feels like she needs to talk to someone now.? She is not actively suicidal denies any thoughts of suicide average states that she has been more depressed.? Denies any worsening proving factors. Associated symptoms: Reports depression She was admitted to the neuropsychiatry unit for definitive treatment of these issues. She said that she has had chronic depression but it was worse after the of her first child who is now 2 years old. She was started on Trintellix and after about 1 month it seemed like it helped very well. She stopped taking it when she became with her now 6-month-old daughter. She was more depressed with and became more depressed after her daughter was born. She tried to breast-feed with her son but her son was not gaining weight even though he was eating and off. The doctor said that she needed to supplement with formula. She did not last very long breast-feeding him and changed to just the formula. She did not want to go through all of that again with her daughter so just gave her formula. She felt very guilty about that. She felt like she was letting her daughter, her , her in-laws and others down. She tried to take the Trintellix but could not. She likes it because it gives her energy. However if she does not eat with it it makes her sick. If she takes it too late in the day and then it keeps her awake until 4 or 5:00 in the morning. She has been trying to take it consistently since last March and has not been able to. She is very depressed and very low energy and motivation. She feels very guilty. Her concentration is good. She took some antidepressants around 17 and 18 but does not remember what they were and does not really remember if they helped much or not. She really wants something that will give her some energy and we decided to try some Wellbutrin. PAST PSYCHIATRIC HISTORY As above SOCIAL HISTORY As above Meds NPU Home Medications Medication Instructions Recorded Confirmed Last Taken Type vitamins-iron fumarate 27 1 tab PO DAILY 07/23/19 10/11/21 03/16/21 21:30 History mg iron-folic acid 0.8 mg tablet ( Vitamin) docusate sodium 100 mg capsule 100 mg PO BID #60 cap 03/27/21 10/11/21 Unknown Rx ibuprofen 800 mg tablet 800 mg PO TID #90 tab 03/27/21 10/11/21 Unknown Rx vortioxetine 10 mg tablet 10 mg PO DAILY 10/10/21 10/10/21 Unknown History (Trintellix) Allergies Allergy/AdvReac Type Severity Reaction Status Date / Time Cephalosporins Allergy ALGY-Rash Verified 09/03/19 07:36 latex Allergy ALGY-Rash Verified 09/03/19 07:36 PFSH NPU PFSH: Medical History (Updated 10/11/21 @ 01:07 by Danielle Cage MD) Depression Mental Status Exam MSE Comments: This is a 26-year-old woman overweight male who appears approximately her stated age and was in no acute distress. She is fairly well groomed and in hospital scrubs. She is pleasant and cooperative with the evaluation. psychomotor activity is normal. Speech is at a regular rate and rhythm, normal volume, good articulation, not pressured. Alert, oriented X3 Attention and concentration appear to be normal. Memory is intact Mood is depressed. Affect is moderately dysphoric. Thought process is logical and goal-directed. Thought content: Denies auditory and visual hallucinations. No delusions or paranoia are noted. No current suicidal ideation, and no homicidal ideation. Fund of knowledge is average. Insight and judgment appear to be fairly good. Impulse control is appears to be good. Vitals/I&O/Wt Last Vital Signs Temp 98.0 F 10/11/21 06:00 Pulse 86 10/11/21 06:00 Resp 16 10/11/21 06:00 BP 122/80 10/11/21 06:00 Pulse Ox 96 10/11/21 06:00 Weight last 48 hrs Weight 85.275 kg Data NPU : 10/10/21 23:33 10/10/21 23:33 A&P Assessment and plan (1) Depression: Status: Acute Qualifiers: Depression Type: unspecified Qualified Code(s): F32.A - Depression, unspecified Plan This is a 26-year-old female who has a history of depression which is much worse after the of her daughter 6 months ago. Plan: 1. Continue current medication. Add Wellbutrin xl 150 mg for 2 days and then increase to 300 mg. 2. Continue every 15 minute checks for safety. 3. Encourage individual, group and milieu therapies. 4. Encourage sober living treatment after discharge at the highest level of care to which she is willing to commit. 5. We will monitor for safety for herself in the community prior to discharge. Involuntary Hold Information 96 Hour Hold: 96 Hour Involuntary Admission: No Attestations NPU Medical Necessity Statement*: Inpatient hospitalization is medically necessary and the clinically appropriate intervention at this time. We will initiate medications and make changes as indicated. She will be in the hospital for over 2 midnights. Likely length of stay 4-6 days Coding Level of Care Code Acute Production Floater for [facility] Diagnoses Depression F32.A Depression Type: unspecified
[2021-10-11] MEDS: hyDROXYzine 25 mg Capsule 50 MG PO (16:36)
[2021-10-11 17:23] VITALS: BP 110/70; PULSE 63; RESP 16; TEMP 36.7; O2SAT 96
[2021-10-11] MEDS: nicotine 2 mg Gum BUCCAL (19:50)
[2021-10-11 22:00] VITALS: BP 128/84; PULSE 54; RESP 18; TEMP 36.8; O2SAT 100
[2021-10-12 06:00] VITALS: BP 122/75; PULSE 63; RESP 20; TEMP 36.6; O2SAT 99
[2021-10-12] MEDS: prenatal vitamin Capsule 1 CAP PO (09:59)
[2021-10-12] MEDS: ibuprofen 800 mg tablet PO ×2 (09:59→14:19)
[2021-10-12] MEDS: docusate sodium 100 mg Capsule PO (09:59)
[2021-10-12] MEDS: nicotine 21 mg Patch 1 PATCH TRANSDERMA (09:59)
[2021-10-12] MEDS: buPROPion XL (24 HR) 150 mg Tablet PO (09:59)
--- NOTE | 2021-10-12 11:21 | NPU.GN ---
[facility] Topic:Positive Thoughts/ Negative Thoughts General Mood of Group: Inessa did attend group. She was social and her hygiene was good. Inessa seems stable.
[2021-10-12 13:05] VITALS: BP 122/84; PULSE 69; RESP 17; TEMP 36.8; O2SAT 98
[2021-10-12] MEDS: buPROPion SR (12 HR) 150 mg Tablet PO (14:19)
--- NOTE | 2021-10-12 14:38 | W.PM.NPUPNS ---
Subjective NPU Subjective: She feels much better today. She almost feels happy. She is not sure why that would be. She thinks it may be because she is no longer struggling with taking the Trintellix. She did feel a little extra energy from the Wellbutrin. She is not having any side effects from it. Mental Status Exam MSE Comments: This is a 26-year-old woman overweight female who appears approximately her stated age and was in no acute distress. She is fairly well groomed and in hospital scrubs. She is pleasant and cooperative with the evaluation. psychomotor activity is normal. Speech is at a regular rate and rhythm, normal volume, good articulation, not pressured. Alert, oriented X3 Attention and concentration appear to be normal. Memory is intact Mood is good. Affect is euthymic. Thought process is logical and goal-directed. Thought content: Denies auditory and visual hallucinations. No delusions or paranoia are noted. No current suicidal ideation, and no homicidal ideation. Fund of knowledge is average. Insight and judgment appear to be fairly good. Impulse control is appears to be good. Cognition: Patient Appearance: Appropriate Level of Consciousness: Awake, Alert, Appropriate and Follows Commands Patient Cognition Impaired: No Ability to Follow Directions: Excellent Patient Orientation (long list): Person, Place and Time Comprehension Ability: No Impairment Hallucination Type: None Delusion Description: Not Present Thought Process: Appropriate Affect: Affect Description: Appropriate and Calm Depressive Symptoms: Unhappiness Behavior: Patient Behavior: Appropriate Speech Pattern: Appropriate Vitals/I&O/Wt Last Vital Signs Temp 98.2 F 10/12/21 13:05 Pulse 69 10/12/21 13:05 Resp 17 10/12/21 13:05 BP 122/84 10/12/21 13:05 Pulse Ox 98 10/12/21 13:05 Weight last 48 hrs Weight 85.275 kg Data NPU : 10/10/21 23:33 10/10/21 23:33 A&P Assessment and plan (1) Depression: Status: Acute Qualifiers: Depression Type: unspecified Qualified Code(s): F32.A - Depression, unspecified Plan This is a 26-year-old female who has a history of depression which is much worse after the of her daughter 6 months ago. Plan: 1. Continue current medication. Add Wellbutrin xl 150 mg for 2 days and then increase to 300 mg. 2. Continue every 15 minute checks for safety. 3. Encourage individual, group and milieu therapies. 4. Encourage sober living treatment after discharge at the highest level of care to which she is willing to commit. 5. We will monitor for safety for herself in the community prior to discharge. Involuntary Hold Information 96 Hour Hold: 96 Hour Involuntary Admission: No Attestations NPU Medical Necessity Statement*: Inpatient hospitalization is medically necessary and the clinically appropriate intervention at this time. We will initiate medications and make changes as indicated. Coding Level of Care Code Acute Real Estate Management Specialist for [facility]nu Alba Diagnoses Depression F32.A Depression Type: unspecified
[2021-10-12] MEDS: nicotine 2 mg Gum BUCCAL (19:46)
[2021-10-12 21:31] VITALS: BP 129/80; PULSE 80; RESP 16; TEMP 36.7; O2SAT 98
[2021-10-13 06:00] VITALS: BP 110/73; PULSE 65; RESP 18; TEMP 36.8; O2SAT 100
[2021-10-13] MEDS: docusate sodium 100 mg Capsule PO (08:01)
[2021-10-13] MEDS: prenatal vitamin Capsule 1 CAP PO (08:01)
[2021-10-13] MEDS: buPROPion XL (24 HR) 150 mg Tablet PO (08:01)
[2021-10-13] MEDS: nicotine 2 mg Gum BUCCAL ×2 (10:06→12:22)
--- NOTE | 2021-10-13 11:58 | NPU.GN ---
[facility] Topic:Whine Barrel Activity General Mood of Group: Inessa did attend group today. She was social and her hygiene is good.
--- NOTE | 2021-10-13 14:19 | W.PM.NPUDCS ---
Diagnoses at Discharge Discharge Diagnosis (1) Depression: Status: Acute Qualifiers: Depression Type: unspecified Qualified Code(s): F32.A - Depression, unspecified Reason for Visit Reason for Visit: MHE Brief History: History of Present Illness Inessa Noland is a 26 year old female admitted through our emergency department with the following report: 26-year-old female who states she has chronic depression since age 17.? She states that she is also had complicated depression and has a 2-year-old and a 6-month-old.? States she has been having increasing depression of late has not been taking her meds she states she has an outpatient appointment but feels like she needs to talk to someone now.? She is not actively suicidal denies any thoughts of suicide average states that she has been more depressed.? Denies any worsening proving factors. Associated symptoms: Reports depression She was admitted to the neuropsychiatry unit for definitive treatment of these issues.? She said that she has had chronic depression but it was worse after the of her first child who is now 2 years old.? She was started on Trintellix and after about 1 month it seemed like it helped very well.? She stopped taking it when she became with her now 6-month-old daughter.? She was more depressed with and became more depressed after her daughter was born.? She tried to breast-feed with her son but her son was not gaining weight even though he was eating and off.? The doctor said that she needed to supplement with formula.? She did not last very long breast-feeding him and changed to just the formula.? She did not want to go through all of that again with her daughter so just gave her formula.? She felt very guilty about that.? She felt like she was letting her daughter, her , her in-laws and others down.? She tried to take the Trintellix but could not.? She likes it because it gives her energy.? However if she does not eat with it it makes her sick.? If she takes it too late in the day and then it keeps her awake until 4 or 5:00 in the morning.? She has been trying to take it consistently since last March and has not been able to.? She is very depressed and very low energy and motivation.? She feels very guilty.? Her concentration is good.? She took some antidepressants around 17 and 18 but does not remember what they were and does not really remember if they helped much or not.? She really wants something that will give her some energy and we decided to try some Wellbutrin. PAST PSYCHIATRIC HISTORY As above SOCIAL HISTORY As above Hospital Course Hospital Course She quickly acclimated to the individual, group and milieu therapies provided. The Trintellix was officially discontinued and she was started on Wellbutrin XL with a very positive response. She endorsed feeling much better and was able to contract for safety outside the hospital prior to discharge. During the hospitalization, patient had routine laboratory studies which were within normal limits except for few outliers. Additionally there was a general medical evaluation which was also within normal limits and revealed no new acute processes. Discharge Summary: At the time of discharge, she denied psychosis or lethality. Mood and anxiety were well managed. Patient endorsed a plan to avoid all drugs of abuse and follow-up with the aftercare recommendations of the treatment team. Patient was evaluated and deemed to be absent credible lethality, and had achieved the maximum benefit from an inpatient hospitalization, so was discharged. Involuntary Hold Information 96 Hour Hold: 96 Hour Involuntary Admission: No Mental Status Exam MSE Comments: This is an overweight versus obese white female in hospital scrubs with adequate grooming and eye contact. No abnormal movements. Cooperative with exam in no acute distress. Speech was normal rate and volume. Mood described as better affect congruent. Thought process organized. Thought content: Patient denied suicidal or homicidal ideation, there were no delusions reported or noted, he denied any auditory or visual hallucinations. Attention and concentration were intact and memory appeared reliable but none were formally tested. He is alert and oriented x3. Insight and judgment were fair impulse control improving. Discharge Data Studies Completed and Pending: Laboratory Results WBC 9.4 10^3/uL (4.0- 10.0) 10/10/21 23:33 RBC 4.74 10^6/uL (4.1 -5.3) 10/10/21 23:33 Hgb 14.4 g/dL (11.5-1 5.3) 10/10/21 23:33 Hct 44.2 % (37.0-47.0 ) 10/10/21 23: MCV 93.2 fl (81-99) 10/10/21 23:33 MCH 30.4 pg (28.0-34. 0) 10/10/21 23: MCHC 32.6 g/dL (30.0-3 6.0) 10/10/21 23: RDW 12.7 % (12.1-15.1 ) 10/10/21 23: Plt Count 264 10^3/cmm (130 -400) 10/10/21 23: MPV 10.2 fL (7.4-10.4 ) 10/10/21 23: Neut % (Auto) 50.3 % 10/10/21 23: Lymph % (Auto) 42.6 % 10/10/21 23: [place] % (Auto) 5.3 % 10/10/21: Eos % (Auto) 0.9 % 10/10/21: Baso % (Auto) 0.6 % 10/10/21: Neut # (Auto) 4.70 10^3/uL (1.8 -7.7) 10/10/21: Lymph # (Auto) 4.0 10^3/uL (0.8- 4.8) 10/10/21 23: [place] # (Auto) 0.5 10^3/uL (0.2- 0.9) 10/10/21 23: Eos # (Auto) 0.1 10^3/uL (0.0- 0.8) 10/10/21 23: Baso # (Auto) 0.1 10^3/uL (0.0- 0.1) 10/10/21: Nucleated RBC % (a uto) 0 % 10/10/21 23: Nucleated RBCs # 0.0 /100WBC 10/10/21 23: Sodium 138 mmol/L (136-1 45) 10/10/21 23: Potassium 3.3 mmol/L (3.5-5 .1) L 10/10/21 23: Chloride 103 mmol/L (98-10 7) 10/10/21 23: Carbon Dioxide 19 mmol/L (22-29) L 10/10/21 23: Anion Gap 19.3 (5-19) H 10/10/21 23: BUN 7 mg/dL (6-20) 10/10/21 23:33 Creatinine 0.7 mg/dL (0.5-0. 9) 10/10/21 23:33 GFR Calculation 102.8 mL/min (90- 130) 10/10/21 23:33 Glucose 99 mg/dL (65-115) 10/10/21 23:33 Calculated Osmolal ity 284 mOsm/kg (285- 295) L 10/10/21 23:33 Calcium 9.6 mg/dL (8.5-10 .5) 10/10/21 23:33 Total Bilirubin 0.5 mg/dL (0.15-1 .2) 10/10/21 23:33 AST 17 U/L (0-32) 10/10/21 23:33 ALT 15 U/L (0-33) 10/10/21 23:33 Alkaline Phosphata se 77 IU/L (35-105) 10/10/21 23:33 Total Protein 7.7 g/dL (6.6-8.7 ) 10/10/21 23:33 Albumin 4.7 g/dL (3.5-5.2 ) 10/10/21 23:33 Globulin 3.0 g/dL (1.3-4.6 ) 10/10/21 23:33 HCG, Qual Negative (Negati ve) 10/10/21 23:33 Salicylates < 0.3 mg/dL (3-10 ) L 10/10/21 23:33 Urine Opiates Scre en Negative ng/mL (N egative) 10/10/21 23:55 Acetaminophen < 5.0 ug/mL (10-3 0) L 10/10/21 23:33 Ur Barbiturates Sc reen Negative ng/mL (N egative) 10/10/21 23:55 Ur Phencyclidine S crn Negative ng/mL (N egative) 10/10/21 23:55 Ur Amphetamines Sc reen Negative ng/mL (N egative) 10/10/21 23:55 U Benzodiazepines Scrn Negative ng/mL (N egative) 10/10/21 23:55 Urine Cocaine Scre en Negative ng/mL (N egative) 10/10/21 23:55 U Marijuana (THC) Screen Positive ng/mL (N egative) H 10/10/21 23:55 Ethyl Alcohol < 10 mg/dL (0-10) 10/10/21 23:33 Vitals: Last Vital Signs Temp 98.2 F 10/13/21 06:00 Pulse 65 10/13/21 06:00 Resp 18 10/13/21 06:00 BP 110/73 10/13/21 06:00 Pulse Ox 100 10/13/21 06:00 Discharge Plan Discharge Patient Disposition: Home Condition: Stable Prescriptions: New bupropion HCl 150 mg Tablet Extended Release 24 Hr 150 mg PO DAILY 30 Days Qty: 30 1RF Discharge Orders: Discharge Order (Routine); Ordered 10/13/21 Ordered By: Humberto Hernandez Referrals: [facility]-Orly Arce [Other] - 11/15/21 2:00 pm (Scheduled appointment with therapist.) Mickey Camarillo MD [Primary Care Provider] - 10/21/21 11:00 am Discharge Diet: Regular Discharge Activity: Resume usual activity Patient Instructions: Depression, Stress (ED), Opioid Safety Discharge Attestations NPU Time Spent in Discharge Care*: less than 30 min Specific Discharge Activities: Specific discharge activities: educating patient, discussing with insurance case manager/social workers/dc planners, documenting/other paperwork and evaluating patient/reviewing data Status at Discharge: Cognitive status at discharge: cognitively intact, Behavioral status at discharge: cooperative, Coding Level of Care Code Acute Chg FW DC note Diagnoses Depression F32.A Depression Type: unspecified
[2021-10-13 14:25] VITALS: BP 110/73; PULSE 65; RESP 18; TEMP 36.8; O2SAT 100
--- NOTE | 2021-10-13 14:27 | PC.NURSE ---
DC TEAM HAS DETERMINED PT IS STABLE TO DC TO HOME TODAY. TO PICK PT UP. MEDICATIONS SENT TO PHARMACY FOR PT TO MANAGER ASSESSMENT. ALL PERSONAL BELONGINGS TO BE RETURNED TO PT AT IN. FOLLOW UP APPOINTMENTS IN PLACE AND INCLUDED IN IN PACKET THAT PT IS TO RECEIVE.
== END 2021-10-13 15:03 | disposition home or self-care (01) | DRG 776 ==
LOC: ER 10-11 01:07 → NP 10-11 01:56
PROVIDERS: Admitting Provider Psychiatry & Neurology Psychiatry; Emergency Provider Emergency Medicine; PCP Family Medicine; Visit Provider Psychiatry & Neurology Psychiatry
DX: O99.345 Other mental disorders complicating the puerperium (principal); F53.0 Postpartum depression; Z91.14 Patient's other noncompliance with medication regimen
CPT/HCPCS: 80053; 80306; 80307; 81025; 85025; 97150; 97165; 99285

== ENCOUNTER 2021-11-03 09:34 | Emergency (ER) | payer MEDICAID, SELFPAY ==
[2021-11-03 10:17] VITALS: BP 153/77; PULSE 44; RESP 16; TEMP 36.6; O2SAT 100; BMI 29.7
--- NOTE | 2021-11-03 10:56 | ECG_ITS ---
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 Measurements Intervals [place] Rate: 43 P: 56 VA: 136 QRS: 80 QRSD: 92 T: 73 QT: 477 QTc: 408 Interpretive Statements SINUS BRADYCARDIA WITH OCCASIONAL SUPRAVENTRICULAR PREMATURE COMPLEXES Compared to ECG 11/23/2018 22:34:37 Sinus rhythm no longer present Sinus arrhythmia no longer present Electronically Signed On 11-03-2021 18:09:23 CDT by James Betancur M.D. [id number]
[2021-11-03 11:26] LABS: HCG, Serum Qual Negative (Negative)
[2021-11-03 11:27] LABS: Alanine Aminotransferase 18 U/L (0-33); Alkaline Phosphatase 84 IU/L (35-105); Blood Urea Nitrogen 6 mg/dL (6-20); Calcium 10.4 mg/dL (8.5-10.5); Carbon Dioxide 18 mmol/L (22-29); Chloride 105 mmol/L (98-107); Glomerular Filtration Rate 102.8 mL/min (90-130); Glucose 107 mg/dL (65-115); Lipase 15 U/L (13-60); Osmolality Calculated 288 mOsm/kg (285-295); Sodium 140 mmol/L (136-145); Total Bilirubin 0.3 mg/dL (0.15-1.2)
[2021-11-03 11:29] LABS: Anion Gap 20.9 (5-19); Aspartate Amino Transferase 19 U/L (0-32); Potassium 3.9 mmol/L (3.5-5.1)
[2021-11-03 11:53] LABS: Glucose Urine UA Norm (Normal); Protein Urine Neg (Negative); Urine Appearance Hazy (CLEAR); Urine Color Dark Yellow (Yellow); pH Urine 5 (5-7)
[2021-11-03 11:54] LABS: Add Urine Microscopic? YES; Bilirubin Urine Neg (Negative); Blood Urine 3+ (Negative); Ketones Urine 1+ (Negative); Leukocyte Esterase Urine Trace (Negative); Nitrate Urine Negative (Negative); Urobilinogen Urine Norm (Negative)
[2021-11-03 11:57] LABS: Squamous Epithelial Cell Urine 0-4 /hpf (0-5); WBC Urine 15-25 /hpf (0-5)
--- NOTE | 2021-11-03 11:57 | ED_ITS ---
Documented by User: RONN Espinoza 11/04/21 07:42 HPI - Nausea/Vomiting/Diarrhea General: Chief complaint: Abdominal Pain Stated complaint: N/V Time Seen by Provider: 11/03/21 11:13 History of Present Illness: Patient is a 26-year-old female comes to the ED with nausea and vomiting. Symptoms started today. She took some of her morning meds of bupropion and hydroxyzine and afterwards started feeling very sick to her stomach. She reports having some chills and was sweaty this morning from emesis. She denies any abdominal pain. Associated nausea: Yes Associated symtoms: Reports nausea; Denies change in vision, chest pain, dysuria, fatigue, headache(s) or palpitations Review of Systems Const: Reports: chills; Denies: fever(s) or fatigue Eyes: Denies: change in vision or eye discomfort ENMT: Denies: throat pain, odynophagia, nasal discharge or nasal congestion Card: Denies: chest pain, palpitations, edema, swelling of feet/ankles, dyspnea on exertion or orthopnea Resp: Denies: dyspnea, productive cough or non-productive cough GI: Reports: nausea and vomiting; Denies: abdominal pain, diarrhea, constipation or hematochezia : Denies: flank pain, dysuria or hematuria Musc: Denies: neck pain, back pain or extremity swelling Skin/Breast: Denies: rash or new lesions Neuro: Denies: headache(s), numbness in extremities or weakness in extremities PFS ED PFSH: Medical History Depression No pertinent family history Female Reproductive History: Date of last menstrual period: 11/03/21 Physical Exam Const: COMMON NORMALS: no acute distress, patient oriented x3 and alert GENERAL APPEARANCE: cooperative and comfortable HENMT: COMMON NORMALS: normocephalic HEAD & SCALP: normocephalic MOUTH: Normal oral and palatal mucosa present THROAT: posterior oropharynx normal and uvula midline Neck/C-Spine: COMMON NORMALS: supple GENERAL: Yes normal visual inspection Resp: COMMON NORMALS: normal respiratory effort, No retractions, No use of accessory muscles and clear to auscultation bilaterally AUSCULTATION: clear to auscultation bilaterally Cardio: COMMON NORMALS: regular rate, regular rhythm, S1 normal heart sound present, S2 normal heart sound present, No gallops present (Cardio), No clicks present (Cardio), No murmurs present (Cardio) and Peripheral pulses 2+ throughout RATE: regular rate RHYTHM: regular rhythm HEART SOUNDS: S1 normal heart sound present and S2 normal heart sound present PERIPHERAL PULSES: Peripheral pulses 2+ throughout GI: COMMON NORMALS: Normal to inspection, nondistended, normoactive bowel sounds present, Soft to palpation, non-tender and no masses PALPATION: Yes Soft to palpation : COMMON NORMALS: Yes no CVA tenderness BLADDER/KIDNEY EXAM: Yes no CVA tenderness Back/Pelvis: COMMON NORMALS: no CVA tenderness Extremity: COMMON NORMALS: normal to inspection Neuro: COMMON NORMALS: patient oriented x3 SENSORIUM/ORIENTATION: Yes alert GAIT: Yes Normal gait present Skin: GENERAL SKIN EXAM: dry skin Course Vital Signs: Vital signs: Vital Signs Temperature 97.9 F 11/03/21 12:22 Pulse Rate 52 L 11/03/21 14:08 Respiratory Rate 16 11/03/21 14:08 Blood Pressure 138/71 11/03/21 14:08 Pulse Oximetry 99 11/03/21 14:08 MDM - Nausea/Vomiting/Diarrhea Medical Decision Making Patient is a 26-year-old female comes to the ED with nausea and vomiting. Sym ptoms started this morning. Patient denies any fever or abdominal pain. Vitals are stable. Patient appears nontoxic and in no acute distress or pain. Rest of exam is benign. White blood cell count 15.8 but the rest of CBC, CMP and lipase were unremarkable. UA shows possible UTI. Influenza and COVID were negative. Patient was given 1 L of IV fluids Zofran and Reglan and her symptoms improved. She was able to tolerate p.o. fluids. Patient diagnosed with acute nausea and vomiting and a UTI and was discharged home with a prescription for an antibiotic and Zofran. She was told to follow-up with her PCP in the next week for reevaluation. Return to ED precautions given. Patient understood and agreed with plan. Lab Data I reviewed the patient's lab results. : 11/03/21 10:16 11/03/21 10:34 Laboratory Results WBC 15.8 10^3/uL (4.0-10.0) H 11/03/21 10:16 RBC 5.33 10^6/uL (4.1-5.3) H 11/03/21 10:16 Hgb 16.1 g/dL (11.5-15.3) H 11/03/21 10:16 Hct 48.6 % (37.0-47.0) H 11/03/21 10:16 MCV 91.2 fl (81-99) 11/03/21 10:16 MCH 30.2 pg (28.0-34.0) 11/03/21 10:16 MCHC 33.1 g/dL (30.0-36.0) 11/03/21 10:16 RDW 13.2 % (12.1-15.1) 11/03/21 10:16 Plt Count 302 10^3/cmm (130-400) 11/03/21 10:16 MPV 10.0 fL (7.4-10.4) 11/03/21 10:16 Neut % (Auto) 81.6 % 11/03/21 10:16 Lymph % (Auto) 12.9 % 11/03/21 10:16 [place] % (Auto) 4.4 % 11/03/21 10:16 Eos % (Auto) 0.3 % 11/03/21 10:16 Baso % (Auto) 0.4 % 11/03/21 10:16 Neut # (Auto) 12.85 10^3/uL (1.8-7.7) H 11/03/21 10:16 Lymph # (Auto) 2.0 10^3/uL (0.8-4.8) 11/03/21 10:16 [place] # (Auto) 0.7 10^3/uL (0.2-0.9) 11/03/21 10:16 Eos # (Auto) 0.0 10^3/uL (0.0-0.8) 11/03/21 10:16 Baso # (Auto) 0.1 10^3/uL (0.0-0.1) 11/03/21 10:16 Nucleated RBC % (auto) 0 % 11/03/21 10:16 Nucleated RBCs # 0.0 /100WBC 11/03/21 10:16 Sodium 140 mmol/L (136-145) 11/03/21 10:34 Potassium 3.9 mmol/L (3.5-5.1) 11/03/21 10:34 Chloride 105 mmol/L (98-107) 11/03/21 10:34 Carbon Dioxide 18 mmol/L (22-29) L 11/03/21 10:34 Anion Gap 20.9 (5-19) H 11/03/21 10:34 BUN 6 mg/dL (6-20) 11/03/21 10:34 Creatinine 0.7 mg/dL (0.5-0.9) 11/03/21 10:34 GFR Calculation 102.8 mL/min (90-130) 11/03/21 10:34 Glucose 107 mg/dL (65-115) 11/03/21 10:34 Calculated Osmolality 288 mOsm/kg (285-295) 11/03/21 10:34 Calcium 10.4 mg/dL (8.5-10.5) 11/03/21 10:34 Total Bilirubin 0.3 mg/dL (0.15-1.2) 11/03/21 10:34 AST 19 U/L (0-32) 11/03/21 10:34 ALT 18 U/L (0-33) 11/03/21 10:34 Alkaline Phosphatase 84 IU/L (35-105) 11/03/21 10:34 Total Protein 7.0 g/dL (6.6-8.7) 11/03/21 10:34 Albumin 5.0 g/dL (3.5-5.2) 11/03/21 10:34 Globulin 2.0 g/dL (1.3-4.6) 11/03/21 10:34 Lipase 15 U/L (13-60) 11/03/21 10:34 HCG, Qual Negative (Negative) 11/03/21 10:34 Urine Color Dark yellow (Yellow) 11/03/21 10:34 Urine Appearance Hazy (CLEAR) A 11/03/21 10:34 Urine pH 5 (5-7) 11/03/21 10:34 Ur Specific [place] 1.020 (1.005-1.030) 11/03/21 10:34 Urine Protein Neg (Negative) 11/03/21 10:34 Urine Glucose (UA) Norm (Normal) 11/03/21 10:34 Urine Ketones 1+ (Negative) H 11/03/21 10:34 Urine Blood 3+ (Negative) H 11/03/21 10:34 Urine Nitrate Negative (Negative) 11/03/21 10:34 Urine Bilirubin Neg (Negative) 11/03/21 10:34 Urine Urobilinogen Norm mg/dL (Negative) 11/03/21 10:34 Ur Leukocyte Esterase Trace (Negative) H 11/03/21 10:34 Urine RBC 5-10 /hpf (0-2) H 11/03/21 10:34 Urine WBC 15-25 /hpf (0-5) H 11/03/21 10:34 Ur Squamous Epith Cells 0-4 /hpf (0-5) H 11/03/21 10:34 Amorphous Sediment Not Reportable 11/03/21 10:34 Urine Bacteria 2+ /hpf (NONE) H 11/03/21 10:34 Nasal Influ A H1 2008 PCR Not detected (NOT DETECT) 11/03/21 12:20 Coronavirus 229E (PCR) Not detected (NOT DETECT) 11/03/21 12:20 Influenza A (H1) PCR Not detected (NOT DETECT) 11/03/21 12:20 Influenza A (H3) PCR Not detected (NOT DETECT) 11/03/21 12:20 Influenza Type A (PCR) Not detected (NOT DETECT) 11/03/21 12:20 Influenza Type B (PCR) Not detected (NOT DETECT) 11/03/21 12:20 SARS-CoV-2 (PCR) Not detected (NOT DETECT) 11/03/21 12:20 Discharge Plan Discharge Patient Disposition: Home Clinical Impression: Acute nausea with nonbilious vomiting UTI (urinary tract infection) Qualifiers: Urinary tract infection type: acute cystitis Hematuria presence: with hematuria Qualified Code(s): N30.01 - Acute cystitis with hematuria Condition: Stable Prescriptions: New ondansetron 4 mg tablet,disintegrating 4 mg PO Q8H PRN (Reason: nausea and vomiting) Qty: 15 0RF Bactrim DS 800-160 mg tablet 1 tab PO BID 7 Days Qty: 14 0RF No Action hydroxyzine HCl 50 mg tablet 50 mg PO BID PRN (Reason: Anxiety) 0RF bupropion HCl 150 mg Tablet Extended Release 24 Hr 150 mg PO DAILY 30 Days Qty: 30 1RF Discharge Orders: Discharge ED (Routine); Ordered 11/03/21 Ordered By: Liborio Gonzalez Referrals: Mickey Camarillo MD [Primary Care Provider] - Discharge Diet: Regular Discharge Activity: Increase activity as tolerated Activity Restrictions/Additional Instructions: Follow-up with medical provider as directed in the next 5 to 7 days reevaluation. Drink plenty of fluids and stay hydrated. Take medications as prescribed. Return to the ER or your medical provider if condition worsens. Please read and understand discharge instructions. Thank you for choosing [facility] for your healthcare needs today. Please realize this is an emergency room and that we are providing you with a medical screening exam and this may not be complete and all inclusive of all the testing and or work up that you may need to determine your ailment or severity of your illness. It is very important that you follow up as instructed or that you return to the Emergency Department should you have concerns or if your condition changes or worsens in any way. Coding Level of Care Code ED Cellar Packer for Chg Fwd Exam Comprehensive Documented by User: Az Miranda MD 11/07/21 12:20 HPI - Nausea/Vomiting/Diarrhea General: Chief complaint: Abdominal Pain Stated complaint: N/V Time Seen by Provider: 11/03/21 11:13 [facility] ED PFSH: Medical History Depression No pertinent family history Course Vital Signs: Vital signs: Vital Signs Temperature 97.9 F 11/03/21 12:22 Pulse Rate 52 L 11/03/21 14:08 Respiratory Rate 16 11/03/21 14:08 Blood Pressure 138/71 11/03/21 14:08 Pulse Oximetry 99 11/03/21 14:08 MDM - Nausea/Vomiting/Diarrhea Medical Decision Making Patient is a 26-year-old female comes to the ED with nausea and vomiting. Symptoms started this morning. Patient denies any fever or abdominal pain. Vitals are stable. Patient appears nontoxic and in no acute distress or pain. Rest of exam is benign. White blood cell count 15.8 but the rest of CBC, CMP and lipase were unremarkable. UA shows possible UTI. Influenza and COVID were negative. Patient was given 1 L of IV fluids Zofran and Reglan and her symptoms improved. She was able to tolerate p.o. fluids. Patient diagnosed with acute nausea and vomiting and a UTI and was discharged home with a prescription for an antibiotic and Zofran. She was told to follow-up with her PCP in the next week for reevaluation. Return to ED precautions given. Patient understood and agreed with plan. Dr. Miranda - Patient evaluation, diagnosis, and management was performed independently by Liborio Gonzalez. I did not personally see the patient nor staff the patient with patient's provider. I did review the patient's note today and I believe this note is consistent. Lab Data : 11/03/21 10:16 11/03/21 10:34 Laboratory Results WBC 15.8 10^3/uL (4.0-10.0) H 11/03/21 10:16 RBC 5.33 10^6/uL (4.1-5.3) H 11/03/21 10:16 Hgb 16.1 g/dL (11.5-15.3) H 11/03/21 10:16 Hct 48.6 % (37.0-47.0) H 11/03/21 10:16 MCV 91.2 fl (81-99) 11/03/21 10:16 MCH 30.2 pg (28.0-34.0) 11/03/21 10:16 MCHC 33.1 g/dL (30.0-36.0) 11/03/21 10:16 RDW 13.2 % (12.1-15.1) 11/03/21 10:16 Plt Count 302 10^3/cmm (130-400) 11/03/21 10:16 MPV 10.0 fL (7.4-10.4) 11/03/21 10:16 Neut % (Auto) 81.6 % 11/03/21 10:16 Lymph % (Auto) 12.9 % 11/03/21 10:16 [place] % (Auto) 4.4 % 11/03/21 10:16 Eos % (Auto) 0.3 % 11/03/21 10:16 Baso % (Auto) 0.4 % 11/03/21 10:16 Neut # (Auto) 12.85 10^3/uL (1.8-7.7) H 11/03/21 10:16 Lymph # (Auto) 2.0 10^3/uL (0.8-4.8) 11/03/21 10:16 [place] # (Auto) 0.7 10^3/uL (0.2-0.9) 11/03/21 10:16 Eos # (Auto) 0.0 10^3/uL (0.0-0.8) 11/03/21 10:16 Baso # (Auto) 0.1 10^3/uL (0.0-0.1) 11/03/21 10:16 Nucleated RBC % (auto) 0 % 11/03/21 10:16 Nucleated RBCs # 0.0 /100WBC 11/03/21 10:16 Sodium 140 mmol/L (136-145) 11/03/21 10:34 Potassium 3.9 mmol/L (3.5-5.1) 11/03/21 10:34 Chloride 105 mmol/L (98-107) 11/03/21 10:34 Carbon Dioxide 18 mmol/L (22-29) L 11/03/21 10:34 Anion Gap 20.9 (5-19) H 11/03/21 10:34 BUN 6 mg/dL (6-20) 11/03/21 10:34 Creatinine 0.7 mg/dL (0.5-0.9) 11/03/21 10:34 GFR Calculation 102.8 mL/min (90-130) 11/03/21 10:34 Glucose 107 mg/dL (65-115) 11/03/21 10:34 Calculated Osmolality 288 mOsm/kg (285-295) 11/03/21 10:34 Calcium 10.4 mg/dL (8.5-10.5) 11/03/21 10:34 Total Bilirubin 0.3 mg/dL (0.15-1.2) 11/03/21 10:34 AST 19 U/L (0-32) 11/03/21 10:34 ALT 18 U/L (0-33) 11/03/21 10:34 Alkaline Phosphatase 84 IU/L (35-105) 11/03/21 10:34 Total Protein 7.0 g/dL (6.6-8.7) 11/03/21 10:34 Albumin 5.0 g/dL (3.5-5.2) 11/03/21 10:34 Globulin 2.0 g/dL (1.3-4.6) 11/03/21 10:34 Lipase 15 U/L (13-60) 11/03/21 10:34 HCG, Qual Negative (Negative) 11/03/21 10:34 Urine Color Dark yellow (Yellow) 11/03/21 10:34 Urine Appearance Hazy (CLEAR) A 11/03/21 10:34 Urine pH 5 (5-7) 11/03/21 10:34 Ur Specific [place] 1.020 (1.005-1.030) 11/03/21 10:34 Urine Protein Neg (Negative) 11/03/21 10:34 Urine Glucose (UA) Norm (Normal) 11/03/21 10:34 Urine Ketones 1+ (Negative) H 11/03/21 10:34 Urine Blood 3+ (Negative) H 11/03/21 10:34 Urine Nitrate Negative (Negative) 11/03/21 10:34 Urine Bilirubin Neg (Negative) 11/03/21 10:34 Urine Urobilinogen Norm mg/dL (Negative) 11/03/21 10:34 Ur Leukocyte Esterase Trace (Negative) H 11/03/21 10:34 Urine RBC 5-10 /hpf (0-2) H 11/03/21 10:34 Urine WBC 15-25 /hpf (0-5) H 11/03/21 10:34 Ur Squamous Epith Cells 0-4 /hpf (0-5) H 11/03/21 10:34 Amorphous Sediment Not Reportable 11/03/21 10:34 Urine Bacteria 2+ /hpf (NONE) H 11/03/21 10:34 Nasal Influ A H1 2009 PCR Not detected (NOT DETECT) 11/03/21 12:20 Coronavirus 229E (PCR) Not detected (NOT DETECT) 11/03/21 12:20 Influenza A (H1) PCR Not detected (NOT DETECT) 11/03/21 12:20 Influenza A (H3) PCR Not detected (NOT DETECT) 11/03/21 12:20 Influenza Type A (PCR) Not detected (NOT DETECT) 11/03/21 12:20 Influenza Type B (PCR) Not detected (NOT DETECT) 11/03/21 12:20 SARS-CoV-2 (PCR) Not detected (NOT DETECT) 11/03/21 12:20 Discharge Plan Discharge Patient Disposition: Home Clinical Impression: Acute nausea with nonbilious vomiting UTI (urinary tract infection) Qualifiers: Urinary tract infection type: acute cystitis Hematuria presence: with hematuria Qualified Code(s): N30.01 - Acute cystitis with hematuria Condition: Stable Prescriptions: New ondansetron 4 mg tablet,disintegrating 4 mg PO Q8H PRN (Reason: nausea and vomiting) Qty: 15 0RF Bactrim DS 800-160 mg tablet 1 tab PO BID 7 Days Qty: 14 0RF No Action hydroxyzine HCl 50 mg tablet 50 mg PO BID PRN (Reason: Anxiety) 0RF bupropion HCl 150 mg Tablet Extended Release 24 Hr 150 mg PO DAILY 30 Days Qty: 30 1RF Discharge Orders: Discharge ED (Routine); Ordered 11/03/21 Ordered By: Liborio Gonzalez Referrals: Mickey Camarillo MD [Primary Care Provider] - Discharge Diet: Regular Discharge Activity: Increase activity as tolerated Activity Restrictions/Additional Instructions: Follow-up with medical provider as directed in the next 5 to 7 days reevaluation. Drink plenty of fluids and stay hydrated. Take medications as prescribed. Return to the ER or your medical provider if condition worsens. Please read and understand discharge instructions. Thank you for choosing [facility] for your healthcare needs today. Please realize this is an emergency room and that we are providing you with a medical screening exam and this may not be complete and all inclusive of all the testing and or work up that you may need to determine your ailment or severity of your illness. It is very important that you follow up as instructed or that you return to the Emergency Department should you have concerns or if your condition changes or worsens in any way. Coding Level of Care Code ED Cellar Packer for Bishnu Alba Exam Comprehensive
[2021-11-03 11:58] LABS: Add Urine Culture? Yes; Bacteria Urine 2+ /hpf
[2021-11-03 12:12] LABS: Basophils # 0.1 10^3/uL (0.0-0.1); Basophils % 0.4 %; Eosinophils % 0.3 %; Hematocrit 48.6 % (37.0-47.0); Hemoglobin 16.1 g/dL (11.5-15.3); Lymphocytes % 12.9 %; Mean Corpuscular HGB Conc 33.1 g/dL (30.0-36.0); Mean Corpuscular Hemoglobin 30.2 pg (28.0-34.0); Mean Corpuscular Volume 91.2 fl (81-99); Monocytes # 0.7 10^3/uL (0.2-0.9); Monocytes % 4.4 %; Neutrophils # 12.85 10^3/uL (1.8-7.7); Neutrophils % 81.6 %; Nucleated Red Blood Cells % 0 %; Platelet Count 302 10^3/cmm (130-400); Red Blood Count 5.33 10^6/uL (4.1-5.3); Red Cell Distribution Width 13.2 % (12.1-15.1); White Blood Count 15.8 10^3/uL (4.0-10.0)
[2021-11-03] MEDS: ondansetron 2 mg/ML SDV 2 mL 4 MG IVP (12:12)
[2021-11-03] MEDS: sodium chloride 0.9% 1,000 ML 999 ML IV (12:12)
[2021-11-03 12:22] VITALS: BP 147/75; PULSE 50; RESP 16; TEMP 36.6; O2SAT 99
[2021-11-03] MEDS: metoclopramide 5 mg/mL SDV 2 mL 10 MG IVP (13:09)
[2021-11-03 14:08] VITALS: BP 138/71; PULSE 52; RESP 16; O2SAT 99
[2021-11-03 15:06] LABS: Adenovirus Not Detected (NOT DETECT); Chlamydia Pneumoniae Not Detected (NOT DETECT); Coronavirus 229E,HKU1,NL63,OC4 Not Detected (NOT DETECT); Human Metapneumovirus Not Detected (NOT DETECT); Human Rhinovirus/Enterovirus Not Detected (NOT DETECT); Influenza A Not Detected (NOT DETECT); Influenza A H1 Not Detected (NOT DETECT); Influenza A H1-2009 Not Detected (NOT DETECT); Influenza A H3 Not Detected (NOT DETECT); Influenza B Not Detected (NOT DETECT); Mycoplasma Pneumoniae Not Detected (NOT DETECT); Parainfluenza Virus Type 1 Not Detected (NOT DETECT); Parainfluenza Virus Type 2 Not Detected (NOT DETECT); Parainfluenza Virus Type 3 Not Detected (NOT DETECT); Parainfluenza Virus Type 4 Not Detected (NOT DETECT); Respiratory Syncytial Virus A Not Detected (NOT DETECT); Respiratory Syncytial Virus B Not Detected (NOT DETECT); SARS-COV-2 Not Detected (NOT DETECT)
[2021-11-03 17:02] LABS: Results from GENMARK
== END 2021-11-03 14:09 | disposition home or self-care (01) ==
PROVIDERS: Emergency Provider Physician Assistant; PCP Family Medicine
DX: N30.01 Acute cystitis with hematuria (principal)
CPT/HCPCS: 80053; 81001; 83690; 84703; 85025; 87086; 87631; 87635; 93005; 96361; 96374; 96375; 99283; J2405; J2765; J7030

== ENCOUNTER 2022-03-04 08:55 | Emergency (ER) | payer MEDICAID, SELFPAY ==
[2022-03-04 09:00] VITALS: BP 124/72; PULSE 109; RESP 18; O2SAT 98; BMI 28.1
--- NOTE | 2022-03-04 09:08 | ED_ITS ---
HPI - Nausea/Vomiting/Diarrhea General: Chief complaint: Nausea/Vomiting/Diarrhea Stated complaint: throwing up Time Seen by Provider: 03/04/22 08:57 Source: patient Mode of arrival: ambulatory Limitations: no limitations History of Present Illness: 26-year-old female who states she has had nausea vomiting since yesterday. States she had multiple episodes has had a time tolerating anything p.o. states that she is feeling dehydrated this morning. She had some abdominal cramping denies any abdominal pain denies any diarrhea denies any fever denies any worsening proving factors. She states she feels like she may have food poisoning. Associated nausea: Yes Associated symtoms: Reports nausea; Denies chest pain, dysuria or headache(s) Review of Systems Const: Denies: fever(s), chills, body aches or change in appetite Eyes: Denies: blurry vision or eye discomfort ENMT: Denies: throat pain or dental pain Card: Denies: chest pain Resp: Denies: dyspnea GI: Reports: nausea and vomiting : Denies: dysuria Musc: Denies: neck pain or back pain Skin/Breast: Denies: rash Neuro: Denies: headache(s) Psych: Denies: depression Giacomo/Lymph: Denies: easy bruising All/Imm: Denies: urticaria PFSH ED PFSH: Medical History Depression No pertinent family history Social History (Updated 03/04/22 @ 09:08 by Danielle Cage MD) Substance/Drug Use: never Female Reproductive History: Date of last menstrual period: 11/03/21 Physical Exam Const: COMMON NORMALS: no acute distress, patient oriented x3 and healthy appearing HENMT: COMMON NORMALS: normocephalic and atraumatic HEAD & SCALP: normocephalic and atraumatic Eye: COMMON NORMALS: Equal, round and reactive pupils present and EOMs intact bilaterally PUPIL: Yes Equal, round and reactive pupils present Neck/C-Spine: COMMON NORMALS: full ROM and supple Chest: COMMONS NORMALS: normal inspection of the chest and normal palpation of entire chest wall Resp: COMMON NORMALS: normal respiratory effort, No retractions, No use of accessory muscles and clear to auscultation bilaterally AUSCULTATION: clear to auscultation bilaterally Cardio: COMMON NORMALS: regular rate, regular rhythm and No murmurs present (Cardio) RATE: regular rate RHYTHM: regular rhythm GI: COMMON NORMALS: Normal to inspection, nondistended, normoactive bowel sounds present, Soft to palpation, non-tender and no masses PALPATION: Yes Soft to palpation Extremity: COMMON NORMALS: normal to inspection and full ROM Neuro: COMMON NORMALS: patient oriented x3, moves all extremities and no focal motor deficits Psych: COMMON NORMALS: mental status grossly normal, Normal thought process present and cooperative THOUGHT PROCESS: Normal thought process present Skin: COMMON NORMALS: no rashes or lesions noted and no wounds GENERAL SKIN EXAM: no rashes or lesions noted Course Vital Signs: Vital signs: Vital Signs Pulse Rate 62 03/04/22 10:36 Respiratory Rate 14 03/04/22 10:36 Blood Pressure 136/77 03/04/22 10:36 Pulse Oximetry 98 03/04/22 10:36 Oxygen Delivery Me thod 03/04/22 10:36 MDM - Nausea/Vomiting/Diarrhea Medical Decision Making Patient presents here with vomiting is likely viral or food poisoning. She feels much improved here after Reglan is able to tolerate p.o. did do a CT scan as she had elevated white count CT scan is normal likely has a leukocytosis from the stress of vomiting we will prescribe her Reglan Zofran for home she is to follow-up with PCP and return if worsening. Lab Data : 03/04/22 09:10 03/04/22 09:10 Radiology Impressions Abdomen/Pelvis CT 03/04/22 10:12 IMPRESSION: 1. No acute abnormality seen on the non-contrast abdominal and pelvic CT. 2. Tiny amount of free fluid in the pelvic cul-de-sac. Recommend correlation with phase of gynecologic cycle. 3. Some transverse colonic diverticula seen. No CT evidence of diverticulitis. Laboratory Results WBC 14.9 10^3/uL (4.0-10.0) H 03/04/22 09:10 RBC 4.79 10^6/uL (4.1-5.3) 03/04/22 09:10 Hgb 14.2 g/dL (11.5-15.3) 03/04/22 09:10 Hct 42.9 % (37.0-47.0) 03/04/22 09:10 MCV 89.6 fl (81-99) 03/04/22 09:10 MCH 29.6 pg (28.0-34.0) 03/04/22 09:10 MCHC 33.1 g/dL (30.0-36.0) 03/04/22 09:10 RDW 13.2 % (12.1-15.1) 03/04/22 09:10 Plt Count 256 10^3/cmm (130-400) 03/04/22 09:10 MPV 11.0 fL (7.4-10.4) H 03/04/22 09:10 Neut % (Auto) 81.0 % 03/04/22 09:10 Lymph % (Auto) 13.9 % 03/04/22 09:10 [place] % (Auto) 4.3 % 03/04/22 09:10 Eos % (Auto) 0.2 % 03/04/22 09:10 Baso % (Auto) 0.1 % 03/04/22 09:10 Neut # (Auto) 12.04 10^3/uL (1.8-7.7) H 03/04/22 09:10 Lymph # (Auto) 2.1 10^3/uL (0.8-4.8) 03/04/22 09:10 [place] # (Auto) 0.6 10^3/uL (0.2-0.9) 03/04/22 09:10 Eos # (Auto) 0.0 10^3/uL (0.0-0.8) 03/04/22 09:10 Baso # (Auto) 0.0 10^3/uL (0.0-0.1) 03/04/22 09:10 Nucleated RBC % (auto) 0 % 03/04/22 09:10 Nucleated RBCs # 0.0 /100WBC 03/04/22 09:10 Sodium 139 mmol/L (136-145) 03/04/22 09:10 Potassium 3.2 mmol/L (3.5-5.1) L 03/04/22 09:10 Chloride 101 mmol/L (98-107) 03/04/22 09:10 Carbon Dioxide 20 mmol/L (22-29) L 03/04/22 09:10 Anion Gap 21.2 (5-19) H 03/04/22 09:10 BUN 7 mg/dL (6-20) 03/04/22 09:10 Creatinine 0.6 mg/dL (0.5-0.9) 03/04/22 09:10 GFR Calculation 122.8 mL/min (90-130) 03/04/22 09:10 Glucose 105 mg/dL (65-115) 03/04/22 09:10 Calculated Osmolality 286 mOsm/kg (285-295) 03/04/22 09:10 Calcium 9.6 mg/dL (8.5-10.5) 03/04/22 09:10 Total Bilirubin 0.6 mg/dL (0.15-1.2) 03/04/22 09:10 AST 11 U/L (0-32) 03/04/22 09:10 ALT 11 U/L (0-33) 03/04/22 09:10 Alkaline Phosphatase 66 IU/L (35-105) 03/04/22 09:10 Total Protein 7.5 g/dL (6.6-8.7) 03/04/22 09:10 Albumin 4.7 g/dL (3.5-5.2) 03/04/22 09:10 Globulin 2.8 g/dL (1.3-4.6) 03/04/22 09:10 Lipase 14 U/L (13-60) 03/04/22 09:10 HCG, Qual Negative (Negative) 03/04/22 09:10 Discharge Plan Discharge Patient Disposition: Home Clinical Impression: Vomiting Qualifiers: Vomiting type: unspecified Nausea presence: with nausea Qualified Code(s): R11 .2 - Nausea with vomiting, unspecified Prescriptions: New ondansetron 4 mg tablet,disintegrating 4 mg PO Q6H PRN (Reason: nausea and vomiting) Qty: 14 0RF Reglan 10 mg tablet 10 mg PO Q6H PRN (Reason: nausea and vomiting) Qty: 20 0RF No Action hydroxyzine HCl 50 mg tablet 50 mg PO BID PRN (Reason: Anxiety) ondansetron 4 mg tablet,disintegrating 4 mg PO Q8H PRN (Reason: nausea and vomiting) Qty: 15 0RF bupropion HCl 150 mg Tablet Extended Release 24 Hr 150 mg PO DAILY 30 Days Qty: 30 1RF Discharge Orders: Discharge ED (Routine); Ordered 03/04/22 Ordered By: Danielle Cage Referrals: Mickey Camarillo MD [Primary Care Provider] - 1-3 days Discharge Diet: Advance as tolerated Discharge Activity: Resume usual activity Patient Instructions: Acute Nausea and Vomiting (ED) Coding Level of Care Code ED Livestock Buyer for Chg Fwd Exam Comprehensive
[2022-03-04] MEDS: sodium chloride 0.9% 1,000 ML 999 ML IV (09:18)
[2022-03-04] MEDS: ondansetron 2 mg/ML SDV 2 mL 4 MG IVP (09:18)
[2022-03-04 09:19] LABS: Basophils % 0.1 %; Eosinophils % 0.2 %; Hemoglobin 14.2 g/dL (11.5-15.3); Nucleated Red Blood Cells % 0 %; Red Cell Distribution Width 13.2 % (12.1-15.1)
[2022-03-04 09:34] LABS: HCG, Serum Qual Negative (Negative)
[2022-03-04 09:36] LABS: Hematocrit 42.9 % (37.0-47.0); Lymphocytes # 2.1 10^3/uL (0.8-4.8); Lymphocytes % 13.9 %; Mean Corpuscular HGB Conc 33.1 g/dL (30.0-36.0); Mean Corpuscular Hemoglobin 29.6 pg (28.0-34.0); Mean Corpuscular Volume 89.6 fl (81-99); Monocytes # 0.6 10^3/uL (0.2-0.9); Monocytes % 4.3 %; Neutrophils # 12.04 10^3/uL (1.8-7.7); Platelet Count 256 10^3/cmm (130-400); Red Blood Count 4.79 10^6/uL (4.1-5.3); White Blood Count 14.9 10^3/uL (4.0-10.0)
[2022-03-04 09:43] LABS: Alanine Aminotransferase 11 U/L (0-33); Albumin Level 4.7 g/dL (3.5-5.2); Alkaline Phosphatase 66 IU/L (35-105); Anion Gap 21.2 (5-19); Aspartate Amino Transferase 11 U/L (0-32); Blood Urea Nitrogen 7 mg/dL (6-20); Calcium 9.6 mg/dL (8.5-10.5); Carbon Dioxide 20 mmol/L (22-29); Chloride 101 mmol/L (98-107); Globulin 2.8 g/dL (1.3-4.6); Glomerular Filtration Rate 122.8 mL/min (90-130); Glucose 105 mg/dL (65-115); Lipase 14 U/L (13-60); Osmolality Calculated 286 mOsm/kg (285-295); Potassium 3.2 mmol/L (3.5-5.1); Sodium 139 mmol/L (136-145); Total Bilirubin 0.6 mg/dL (0.15-1.2); Total Protein 7.5 g/dL (6.6-8.7)
[2022-03-04 09:57] LABS: Slide Review Slide Review Perform
[2022-03-04] MEDS: metoclopramide 5 mg/mL SDV 2 mL 10 MG IVP (10:04)
[2022-03-04] MEDS: diphenhydrAMINE 50 mg/mL SDV 1mL IVP (10:04)
[2022-03-04 10:06] VITALS: BP 139/108; PULSE 90; RESP 21; O2SAT 100
--- NOTE | 2022-03-04 10:12 | CTR_ITS ---
PROCEDURE INFORMATION: Exam: CT Abdomen And Pelvis Without Contrast Exam date and time: 03/04/2022 10:23 AM Age: 26 years old Clinical indication: Other: N/v/d; Additional info: Abd pain TECHNIQUE: Imaging protocol: Computed tomography of the abdomen and pelvis without contrast. Radiation optimization: All CT scans at this facility use at least one of these dose optimization techniques: automated exposure control; mA and/or kV adjustment per patient size (includes targeted exams where dose is matched to clinical indication); or iterative reconstruction. COMPARISON: CT abdomen pelvis w con* [id number] 10/01/2018 1:35 AM RADIATION DOSE METRICS: Total DLP (mGy-cm): 516.25 FINDINGS: Liver: Appears unremarkable on the non-contrast CT. Gallbladder and bile ducts: No calcified stones. No ductal dilation. Pancreas: Appears unremarkable on the non-contrast CT. No ductal dilation. Spleen: Appears unremarkable on the non-contrast CT. No splenomegaly. Adrenal glands: Normal. No mass. Kidneys and ureters: Appear unremarkable on the non-contrast CT. No hydronephrosis. Stomach and bowel: The noncontrast opacified stomach appears unremarkable. The noncontrast opacified loops of small bowel in the abdomen and pelvis appear unremarkable. The noncontrast opacified loops of colon in the abdomen and pelvis show some transverse colonic diverticula. The lack of orally administered contrast material limits bowel assessment. Appendix: No evidence of appendicitis. Intraperitoneal space: No free air. Tiny amount of free fluid is seen in the pelvic cul-de-sac. Recommend correlation with phase of gynecologic cycle. Tiny umbilical hernia is seen, containing peritoneal fat. Vasculature: No abdominal aortic aneurysm. Lymph nodes: No enlarged lymph nodes. Urinary bladder: Unremarkable as visualized. Reproductive: Unremarkable as visualized. Bones/joints: No acute osseous abnormality seen. Soft tissues: Unremarkable. CT/CT abdomen pelvis wo con [id number] IMPRESSION: 1. No acute abnormality seen on the non-contrast abdominal and pelvic CT. 2. Tiny amount of free fluid in the pelvic cul-de-sac. Recommend correlation with phase of gynecologic cycle. 3. Some transverse colonic diverticula seen. No CT evidence of diverticulitis.
[2022-03-04 10:17] VITALS: RESP 14
[2022-03-04] MEDS: morphine 4 mg/mL SDV 1 mL IVP (10:17)
[2022-03-04 10:36] VITALS: BP 136/77; PULSE 62; RESP 14; O2SAT 98
== END 2022-03-04 10:56 | disposition home or self-care (01) ==
PROVIDERS: Emergency Provider Emergency Medicine; PCP Family Medicine
DX: R11.2 Nausea with vomiting, unspecified (principal)
CPT/HCPCS: 74176; 80053; 83690; 84703; 85025; 96361; 96374; 96375; 99285; J1200; J2270; J2405; J2765; J7030

== ENCOUNTER 2022-03-06 09:19 | Emergency (ER) | payer MEDICAID, SELFPAY ==
[2022-03-06 09:39] VITALS: BP 110/72; PULSE 68; RESP 18; TEMP 36.6; O2SAT 100; BMI 26.6
--- NOTE | 2022-03-06 10:25 | W.ED.NAVMDI ---
HPI - Nausea/Vomiting/Diarrhea General: Chief complaint: Nausea/Vomiting/Diarrhea Stated complaint: n/v Time Seen by Provider: 03/06/22 09:47 Source: patient Mode of arrival: ambulatory Limitations: no limitations History of Present Illness: Patient is a 26-year-old female presents to ED today with a complaint of nausea, vomiting, diarrhea, and abdominal cramping. Patient tells me she would like an ultrasound for completed as she took a home test and it was negative but the home missed my last as well . She states she is having some abdominal/pelvic cramping. She denies vaginal bleeding, vaginal discharge, vaginal odor. She has no concern for STDs. She is not having any blood in her vomitus or stool. No fevers. Denies sick contacts or bad food exposures. She states she was seen here two days ago for similar symptoms. MD elicited complaint: nausea, vomiting and diarrhea Onset (ago): day(s) Associated nausea: Yes Location of pain: Pelvis (cramping) Exacerbating factors: eating Associated symtoms: Reports nausea; Denies chest pain, dysuria, fatigue, headache(s) or malaise Review of Systems Const: Denies: fever(s), chills, body aches, fatigue or malaise Card: Denies: chest pain Resp: Denies: dyspnea GI: Reports: nausea, vomiting, diarrhea and GI cramping; Denies: hematochezia or melena : Denies: flank pain, difficulty voiding, dysuria, hematuria, vaginal odor, vaginal bleeding or vaginal discharge Musc: Denies: neck pain or back pain Skin/Breast: Denies: rash Neuro: Denies: headache(s) PFS ED PFSH: Medical History Depression No pertinent family history Female Reproductive History: Date of last menstrual period: 11/03/21 Physical Exam Const: COMMON NORMALS: no acute distress, patient oriented x3, no limitations and alert GENERAL APPEARANCE: cooperative NUTRITIONAL APPEARANCE: overweight ORIENTATION/CONSCIOUSNESS: Yes awake, Yes oriented to person, Yes oriented to place and Yes oriented to time HENMT: COMMON NORMALS: normocephalic and atraumatic HEAD & SCALP: normal to inspection, normocephalic and atraumatic Resp: COMMON NORMALS: normal respiratory effort and clear to auscultation bilaterally AUSCULTATION: clear to auscultation bilaterally Cardio: COMMON NORMALS: regular rate and regular rhythm RATE: regular rate RHYTHM: regular rhythm GI: COMMON NORMALS: Normal to inspection, nondistended, normoactive bowel sounds present, Soft to palpation, No hepatosplenomegaly present and no masses INSPECTION: Yes normal to inspection AUSCULTATION: Yes normoactive bowel sounds PALPATION: Yes Soft to palpation, Yes Tenderness to palpation present (GI) (mild diffuse tenderness), No Guarding due to palpation present (GI), No Rigid due to palpation and Yes No hepatosplenomegaly present OTHER: patient belching several times during exam : COMMON NORMALS: Yes no CVA tenderness BLADDER/KIDNEY EXAM: Yes no CVA tenderness Back/Pelvis: COMMON NORMALS: no CVA tenderness, thoracic and lumbar spine normal to inspection, no thoracic nor lumbar tenderness and thoraco-lumbar ROM normal Extremity: COMMON NORMALS: normal to inspection GENERAL: Yes normal exam except as noted Neuro: PAULINE COMA SCALE: document GCS findings Pauline coma scale eye opening: Spontaneous [place] coma scale verbal response: Orientated Pauline coma scale motor response: Obey commands [place] coma scale total score: 15 COMMON NORMALS: patient oriented x3, moves all extremities, no focal motor deficits and no sensory deficits noted SENSORIUM/ORIENTATION: Yes alert, Yes oriented to person, Yes oriented to place and Yes oriented to time Skin: COMMON NORMALS: no rashes or lesions noted GENERAL SKIN EXAM: no rashes or lesions noted Course Vital Signs: Vital signs: Vital Signs Temperature 97.9 F 03/06/22 09:39 Pulse Rate 73 03/06/22 13:41 Respiratory Rate 18 03/06/22 13:41 Blood Pressure 99/58 03/06/22 13:41 Pulse Oximetry 96 03/06/22 13:41 Oxygen Delivery Me thod 03/06/22 12:23 MDM - Nausea/Vomiting/Diarrhea Medical Decision Making Patient feels better after IV nausea medications here. She is not having any active episodes of emesis. Her vital signs are stable. Labs show a leukocytosis of 25.6. Most likely this is stress-induced from her frequent vomiting. Potassium was mildly low at 3.0. She was given oral replacement for this. She is fairly dehydrated with a gap of 27.0. 3+ ketones in her urine. She was given 2 L of normal saline. was negative. UA is suspicious for UTI as she has blood, trace leuks, 10-15 WBCs, and 2+ bacteria. Go and place her on antibiotics and culture this. CT scan today showing no evidence of acute intra-abdominal or pelvic pathology. She did have very mild thickening to her bladder which could correspond to an acute cystitis. Recommend she follow-up with her PCP Dr. Camarillo or another provider at [facility] in 2 to 3 days for re-evaluation. Strict return ED precautions given. Lab Data : 03/06/22 09:58 03/06/22 09:58 Radiology Impressions Abdomen/Pelvis CT 03/06/22 11:40 IMPRESSION: 1. Limited noncontrast examination without CT evidence of acute intra-abdominal or pelvic pathology. 2. Additional findings, as above. Laboratory Results WBC 25.6 10^3/uL (4.0-10.0) H 03/06/22 09:58 RBC 5.30 10^6/uL (4.1-5.3) 03/06/22 09:58 Hgb 15.7 g/dL (11.5-15.3) H 03/06/22 09:58 Hct 46.8 % (37.0-47.0) 03/06/22 09:58 MCV 88.3 fl (81-99) 03/06/22 09:58 MCH 29.6 pg (28.0-34.0) 03/06/22 09:58 MCHC 33.5 g/dL (30.0-36.0) 03/06/22 09:58 RDW 13.2 % (12.1-15.1) 03/06/22 09:58 Plt Count 281 10^3/cmm (130-400) 03/06/22 09:58 MPV 10.8 fL (7.4-10.4) H 03/06/22 09:58 Neut % (Auto) 83.5 % 03/06/22 09:58 Lymph % (Auto) 10.8 % 03/06/22 09:58 [place] % (Auto) 4.4 % 03/06/22 09:58 Eos % (Auto) 0.2 % 03/06/22 09:58 Baso % (Auto) 0.5 % 03/06/22 09:58 Neut # (Auto) 21.38 10^3/uL (1.8-7.7) H 03/06/22 09:58 Lymph # (Auto) 2.8 10^3/uL (0.8-4.8) 03/06/22 09:58 [place] # (Auto) 1.1 10^3/uL (0.2-0.9) H 03/06/22 09:58 Eos # (Auto) 0.1 10^3/uL (0.0-0.8) 03/06/22 09:58 Baso # (Auto) 0.1 10^3/uL (0.0-0.1) 03/06/22 09:58 Nucleated RBC % (auto) 0 % 03/06/22 09:58 Nucleated RBCs # 0.0 /100WBC 03/06/22 09:58 Sodium 138 mmol/L (136-145) 03/06/22 09:58 Potassium 3.0 mmol/L (3.5-5.1) L 03/06/22 09:58 Chloride 98 mmol/L (98-107) 03/06/22 09:58 Carbon Dioxide 16 mmol/L (22-29) L 03/06/22 09:58 Anion Gap 27.0 (5-19) H 03/06/22 09:58 BUN 11 mg/dL (6-20) 03/06/22 09:58 Creatinine 0.8 mg/dL (0.5-0.9) 03/06/22 09:58 GFR Calculation 88.1 mL/min (90-130) L 03/06/22 09:58 Glucose 91 mg/dL (65-115) 03/06/22 09:58 Calculated Osmolality 285 mOsm/kg (285-295) 03/06/22 09:58 Calcium 9.6 mg/dL (8.5-10.5) 03/06/22 09:58 Total Bilirubin 0.9 mg/dL (0.15-1.2) 03/06/22 09:58 AST 40 U/L (0-32) H 03/06/22 09:58 ALT 52 U/L (0-33) H 03/06/22 09:58 Alkaline Phosphatase 66 U/L (35-105) 03/06/22 09:58 Total Protein 7.5 g/dL (6.6-8.7) 03/06/22 09:58 Albumin 4.7 g/dL (3.5-5.2) 03/06/22 09:58 Globulin 2.8 g/dL (1.3-4.6) 03/06/22 09:58 Lipase 13 U/L (13-60) 03/06/22 09:58 Ser , Semi-Qnt 0.50 mIU/mL 03/06/22 09:58 Urine Color Dark yellow (Yellow) 03/06/22 11:34 Urine Appearance Clear (CLEAR) 03/06/22 11:34 Urine pH 6 (5-7) 03/06/22 11:34 Ur Specific [place] 1.025 (1.005-1.030) 03/06/22 11:34 Urine Protein Trace (Negative) 03/06/22 11:34 Urine Glucose (UA) Norm (Normal) 03/06/22 11:34 Urine Ketones 3+ (Negative) H 03/06/22 11:34 Urine Blood 2+ (Negative) H 03/06/22 11:34 Urine Nitrate Negative (Negative) 03/06/22 11:34 Urine Bilirubin 1+ (Negative) H 03/06/22 11:34 Urine Urobilinogen 1 mg/dL (Negative) H 03/06/22 11:34 Ur Leukocyte Esterase Trace (Negative) H 03/06/22 11:34 Urine RBC Rare /hpf (0-2) 03/06/22 11:34 Urine WBC 10-15 /hpf (0-5) H 03/06/22 11:34 Ur Squamous Epith Cells 5-10 /hpf (0-5) H 03/06/22 11:34 Amorphous Sediment Not Reportable 03/06/22 11:34 Urine Bacteria 2+ /hpf (NONE) H 03/06/22 11:34 Discharge Plan Discharge Patient Disposition: Home Clinical Impression: Cystitis, Nausea and vomiting, Dehydration, Acute hypokalemia Condition: Stable Prescriptions: New promethazine 50 mg tablet 50 mg PO Q6H PRN (Reason: nausea/vomiting) Qty: 14 0RF amoxicillin-pot clavulanate 875-125 mg tablet 1 tab PO BID Qty: 14 0RF No Action hydroxyzine HCl 50 mg tablet 50 mg PO BID PRN (Reason: Anxiety) ondansetron 4 mg tablet,disintegrating 4 mg PO Q8H PRN (Reason: nausea and vomiting) Qty: 15 0RF bupropion HCl 150 mg Tablet Extended Release 24 Hr 150 mg PO DAILY 30 Days Qty: 30 1RF ondansetron 4 mg tablet,disintegrating 4 mg PO Q6H PRN (Reason: nausea and vomiting) Qty: 14 0RF Reglan 10 mg tablet 10 mg PO Q6H PRN (Reason: nausea and vomiting) Qty: 20 0RF Discharge Orders: Discharge ED (Routine); Ordered 03/06/22 Ordered By: Tanja Saldivar Referrals: Mickey Camarillo MD [Primary Care Provider] - Activity Restrictions/Additional Instructions: As we discussed I want you to follow-up with Maurice Meredith/primary care provider in 48 to 72 hours for re-evaluation. You need to return to the emergency department for repeated episodes of vomiting or diarrhea, fevers greater than 100.4, severe abdominal pain, or any other concerns you may have. Coding Level of Care Code ED Assembly Adjuster for Chg Fwd Exam Comprehensive
[2022-03-06] MEDS: sodium chloride 0.9% 1,000 ML 999 ML IV (10:30)
[2022-03-06] MEDS: ondansetron 2 mg/ML SDV 2 mL 4 MG IVP (10:30)
[2022-03-06 10:35] LABS: Basophils # 0.1 10^3/uL (0.0-0.1); Basophils % 0.5 %; Eosinophils # 0.1 10^3/uL (0.0-0.8); Eosinophils % 0.2 %; Hematocrit 46.8 % (37.0-47.0); Hemoglobin 15.7 g/dL (11.5-15.3); Lymphocytes # 2.8 10^3/uL (0.8-4.8); Lymphocytes % 10.8 %; Mean Corpuscular HGB Conc 33.5 g/dL (30.0-36.0); Mean Corpuscular Hemoglobin 29.6 pg (28.0-34.0); Mean Corpuscular Volume 88.3 fl (81-99); Mean Platelet Volume 10.8 fL (7.4-10.4); Monocytes # 1.1 10^3/uL (0.2-0.9); Monocytes % 4.4 %; Neutrophils # 21.38 10^3/uL (1.8-7.7); Neutrophils % 83.5 %; Nucleated Red Blood Cells % 0 %; Platelet Count 281 10^3/cmm (130-400); Red Cell Distribution Width 13.2 % (12.1-15.1); White Blood Count 25.6 10^3/uL (4.0-10.0)
[2022-03-06] MEDS: metoclopramide 5 mg/mL SDV 2 mL 10 MG IVP (11:21)
[2022-03-06 11:23] LABS: Alanine Aminotransferase 52 U/L (0-33); Albumin Level 4.7 g/dL (3.5-5.2); Alkaline Phosphatase 66 U/L (35-105); Aspartate Amino Transferase 40 U/L (0-32); Blood Urea Nitrogen 11 mg/dL (6-20); Calcium 9.6 mg/dL (8.5-10.5); Carbon Dioxide 16 mmol/L (22-29); Chloride 98 mmol/L (98-107); Globulin 2.8 g/dL (1.3-4.6); Glomerular Filtration Rate 88.1 mL/min (90-130); Glucose 91 mg/dL (65-115); Lipase 13 U/L (13-60); Osmolality Calculated 285 mOsm/kg (285-295); Sodium 138 mmol/L (136-145); Total Bilirubin 0.9 mg/dL (0.15-1.2); Total Protein 7.5 g/dL (6.6-8.7)
--- NOTE | 2022-03-06 11:40 | CTR_ITS ---
PROCEDURE INFORMATION: Exam: CT Abdomen And Pelvis Without Contrast Exam date and time: 03/06/2022 11:58 AM Age: 26 years old Clinical indication: Abdominal pain; Generalized; Patient HX: Abd pain above and below belly button; Additional info: N/v/d TECHNIQUE: Imaging protocol: Computed tomography of the abdomen and pelvis without contrast. Axial, coronal and sagittal reformatted images were created and reviewed. Radiation optimization: All CT scans at this facility use at least one of these dose optimization techniques: automated exposure control; mA and/or kV adjustment per patient size (includes targeted exams where dose is matched to clinical indication); or iterative reconstruction. COMPARISON: CT abdomen pelvis wo con [id number] 03/04/2022 10:23 AM RADIATION DOSE METRICS: Total DLP (mGy-cm): 518.58 FINDINGS: Liver: Ill-defined hypoattenuation adjacent to the falciform ligament, suggesting focal fatty infiltration. Gallbladder and bile ducts: No radiodense gallstones. No biliary ductal dilatation. Pancreas: Unremarkable. Spleen: Unremarkable. Adrenal glands: Normal. No mass. Kidneys and ureters: No mass. No radiodense calculi. No hydronephrosis. Stomach and bowel: No bowel wall thickening. No obstruction. No pneumatosis. Appendix: Normal. Intraperitoneal space: Trace nonspecific free pelvic fluid, likely physiologic. No organized fluid collection. No free air. Vasculature: Unremarkable. No aneurysm. Lymph nodes: Small mesenteric lymph nodes, nonspecific in appearance. No pathologically enlarged lymph nodes. Urinary bladder: Mild circumferential urinary bladder wall thickening, likely secondary to underdistention. Reproductive: Unremarkable. Bones/joints: No acute osseous abnormality. Soft tissues: Tiny, fat containing umbilical hernia. CT/CT abdomen pelvis con [id number] IMPRESSION: 1. Limited noncontrast examination without CT evidence of acute intra-abdominal or pelvic pathology. 2. Additional findings, as above.
[2022-03-06] MEDS: potassium chloride ER 20 mEq Tablet 40 MEQ PO (12:21)
[2022-03-06 12:23] VITALS: BP 118/51; PULSE 64; RESP 19; O2SAT 100
[2022-03-06 12:47] LABS: Add Urine Microscopic? YES; Bilirubin Urine 1+ (Negative); Blood Urine 2+ (Negative); Glucose Urine UA Norm (Normal); Ketones Urine 3+ (Negative); Leukocyte Esterase Urine Trace (Negative); Nitrate Urine Negative (Negative); Protein Urine Trace (Negative); Specific Gravity, Urine 1.025 (1.005-1.030); Urine Appearance Clear (CLEAR); Urine Color Dark Yellow (Yellow); Urobilinogen Urine 1 mg/dL (Negative); pH Urine 6 (5-7)
[2022-03-06 12:48] LABS: Add Urine Culture? Yes; Bacteria Urine 2+ /hpf; RBC Urine RARE /hpf (0-2)
[2022-03-06] MEDS: promethazine 25 mg/mL SDV 1 mL IM (13:29)
[2022-03-06 13:41] VITALS: BP 99/58; PULSE 73; RESP 18; O2SAT 96
== END 2022-03-06 13:43 | disposition home or self-care (01) ==
PROVIDERS: Emergency Provider Physician Assistant; PCP Family Medicine
DX: N30.90 Cystitis, unspecified without hematuria (principal); R11.2 Nausea with vomiting, unspecified; E86.0 Dehydration; E87.6 Hypokalemia
CPT/HCPCS: 74176; 80053; 81001; 83690; 84702; 85025; 87086; 96361; 96372; 96374; 96375; 99285; J2405; J2550; J2765; J7030

== ENCOUNTER 2022-07-04 02:40 | Emergency (ER) | payer MEDICAID, SELFPAY ==
[2022-07-04 02:45] VITALS: BP 150/108; PULSE 112; RESP 20; TEMP 36.7; O2SAT 98; BMI 23.9
--- NOTE | 2022-07-04 02:51 | W.ED.ABDPA2 ---
HPI - Abdominal Pain General: Chief Complaint: Abdominal Pain Stated Complaint: abdomen pain Time Seen by Provider: 07/04/22 02:41 Source: patient Mode of arrival: ambulatory Limitations: no limitations History of Present Illness: 46-year-old female states that she has been having abdominal pain with nausea vomiting over the last 5 days. She states she has had multiple episodes of vomiting has been having a hard time tolerating p.o. states her pain is in her epigastric region radiates to her right upper quadrant and back. She denies any fevers denies any shortness of breath. Associated Symptoms: Reports nausea and vomiting; Denies chills, dysuria and fever(s) Related Data: Date of Last Menstrual Period: 07/04/22 Review of Systems Const: Denies: fever(s), chills, body aches or change in appetite Eyes: Denies: blurry vision or eye discomfort ENMT: Denies: throat pain or dental pain Card: Denies: chest pain Resp: Denies: dyspnea GI: Reports: abdominal pain, nausea and vomiting : Denies: dysuria Musc: Denies: neck pain or back pain Skin/Breast: Denies: rash Neuro: Denies: headache(s) Psych: Denies: depression Giacomo/Lymph: Denies: easy bruising All/Imm: Denies: urticaria PFSH ED PFSH: Medical History Depression No pertinent family history Social History (Updated 07/04/22 @ 02:52 by Danielle Cage MD) Substance/Drug Use: unknown Female Reproductive History: Date of last menstrual period: 07/04/22 Physical Exam Const: COMMON NORMALS: no acute distress, patient oriented x3 and healthy appearing HENMT: COMMON NORMALS: normocephalic and atraumatic HEAD & SCALP: normocephalic and atraumatic Eye: COMMON NORMALS: Equal, round and reactive pupils present and EOMs intact bilaterally PUPIL: Yes Equal, round and reactive pupils present Neck/C-Spine: COMMON NORMALS: full ROM and supple Chest: COMMONS NORMALS: normal inspection of the chest and normal palpation of entire chest wall Resp: COMMON NORMALS: normal respiratory effort, No retractions, No use of accessory muscles and clear to auscultation bilaterally AUSCULTATION: clear to auscultation bilaterally Cardio: COMMON NORMALS: regular rate, regular rhythm and No murmurs present (Cardio) RATE: regular rate RHYTHM: regular rhythm GI: COMMON NORMALS: Normal to inspection, nondistended, normoactive bowel sounds present, Soft to palpation, non-tender and no masses PALPATION: Yes Soft to palpation Extremity: COMMON NORMALS: normal to inspection and full ROM Neuro: COMMON NORMALS: patient oriented x3, moves all extremities and no focal motor deficits Psych: COMMON NORMALS: mental status grossly normal, Normal thought process present and cooperative THOUGHT PROCESS: Normal thought process present Skin: COMMON NORMALS: no rashes or lesions noted and no wounds GENERAL SKIN EXAM: no rashes or lesions noted Course Vital Signs: Vital signs: Vital Signs Temperature 98.1 F 07/04/22 02:45 Pulse Rate 77 07/04/22 04:17 Respiratory Rate 14 07/04/22 04:17 Blood Pressure 157/105 07/04/22 04:17 Pulse Oximetry 100 07/04/22 04:17 Oxygen Delivery Me thod 07/04/22 03:11 MDM - Abdominal Pain Medical Decision Making Patient presents with vomiting she has been able to tolerate p.o. here. Patient's anion gap electrolytes here are improved after IV fluids I feel she is stable for discharge we will prescribe Zofran she is to follow-up with her PCP and return if worsening. CT of her abdomen is normal. Lab Data 07/04/22 03:05 07/04/22 04:35 Labs/Radiology: Radiology Impressions Abdomen/Pelvis CT 07/04/22 03:47 IMPRESSION: 1. No acute finding visualized. 2. No significant change from 03/06/2022. Laboratory Results WBC 13.8 10^3/uL (4.0-10.0) H 07/04/22 03:05 RBC 5.68 10^6/uL (4.1-5.3) H 07/04/22 03:05 Hgb 17.0 g/dL (11.5-15.3) H 07/04/22 03:05 Hct 49.9 % (37.0-47.0) H 07/04/22 03:05 MCV 87.9 fl (81-99) 07/04/22 03:05 MCH 29.9 pg (28.0-34.0) 07/04/22 03:05 MCHC 34.1 g/dL (30.0-36.0) 07/04/22 03:05 RDW 13.0 % (12.1-15.1) 07/04/22 03:05 Plt Count 323 10^3/cmm (130-400) 07/04/22 03:05 MPV 9.8 fL (7.4-10.4) 07/04/22 03:05 Neut % (Auto) 61.4 % 07/04/22 03:05 Lymph % (Auto) 30.2 % 07/04/22 03:05 [place] % (Auto) 7.3 % 07/04/22 03:05 Eos % (Auto) 0.2 % 07/04/22 03:05 Baso % (Auto) 0.3 % 07/04/22 03:05 Neut # (Auto) 8.47 10^3/uL (1.8-7.7) H 07/04/22 03:05 Lymph # (Auto) 4.2 10^3/uL (0.8-4.8) 07/04/22 03:05 [place] # (Auto) 1.0 10^3/uL (0.2-0.9) H 07/04/22 03:05 Eos # (Auto) 0.0 10^3/uL (0.0-0.8) 07/04/22 03:05 Baso # (Auto) 0.0 10^3/uL (0.0-0.1) 07/04/22 03:05 Nucleated RBC % (auto) 0 % 07/04/22 03:05 Nucleated RBCs # 0.0 /100WBC 07/04/22 03:05 Sodium 135 mmol/L (136-145) L 07/04/22 04:35 Potassium 3.2 mmol/L (3.5-5.1) L 07/04/22 04:35 Chloride 97 mmol/L (98-107) L 07/04/22 04:35 Carbon Dioxide 17 mmol/L (22-29) L 07/04/22 04:35 Anion Gap 24.2 (5-19) H 07/04/22 04:35 BUN 10 mg/dL (6-20) 07/04/22 04:35 Creatinine 0.7 mg/dL (0.5-0.9) 07/04/22 04:35 GFR Calculation 102.8 mL/min (90-130) 07/04/22 04:35 Glucose 64 mg/dL (65-115) L 07/04/22 04:35 Calculated Osmolality 277 mOsm/kg (285-295) L 07/04/22 04:35 Calcium 8.7 mg/dL (8.5-10.5) 07/04/22 04:35 Total Bilirubin 1.1 mg/dL (0.15-1.2) 07/04/22 03:05 AST 16 U/L (0-32) 07/04/22 03:05 ALT 14 U/L (0-33) 07/04/22 03:05 Alkaline Phosphatase 68 U/L (35-105) 07/04/22 03:05 Total Protein 8.3 g/dL (6.6-8.7) 07/04/22 03:05 Albumin 5.1 g/dL (3.5-5.2) 07/04/22 03:05 Globulin 3.2 g/dL (1.3-4.6) 07/04/22 03:05 Lipase 16 U/L (13-60) 07/04/22 03:05 HCG, Qual Negative (Negative) 07/04/22 03:05 Urine Color Dark yellow (Yellow) 07/04/22 03:44 Urine Appearance Clear (CLEAR) 07/04/22 03:44 Urine pH 6 (5-7) 07/04/22 03:44 Ur Specific [place] 1.025 (1.005-1.030) 07/04/22 03:44 Urine Protein 3+ (Negative) H 07/04/22 03:44 Urine Glucose (UA) Norm (Normal) 07/04/22 03:44 Urine Ketones 3+ (Negative) H 07/04/22 03:44 Urine Blood 3+ (Negative) H 07/04/22 03:44 Urine Nitrate Negative (Negative) 07/04/22 03:44 Urine Bilirubin 1+ (Negative) H 07/04/22 03:44 Urine Urobilinogen 1 mg/dL (Negative) H 07/04/22 03:44 Ur Leukocyte Esterase Trace (Negative) H 07/04/22 03:44 Urine RBC 15-25 /hpf (0-2) H 07/04/22 03:44 Urine WBC 0-4 /hpf (0-5) H 07/04/22 03:44 Ur Squamous Epith Cells 10-15 /hpf (0-5) H 07/04/22 03:44 Amorphous Sediment 2+ /hpf 07/04/22 03:44 Urine Bacteria 1+ /hpf (NONE) H 07/04/22 03:44 Hyaline Casts 0-4 /lpf H 07/04/22 03:44 Discharge Plan Discharge Patient Disposition: Home Clinical Impression: Abdominal pain Qualifiers: Abdominal location: generalized Qualified Code(s): R10.84 - Generalized abdominal pain Vomiting Qualifiers: Vomiting type: unspecified Nausea presence: with nausea Qualified Code(s): R11.2 - Nausea with vomiting, unspecified Prescriptions: New ondansetron 4 mg tablet,disintegrating 4 mg PO Q6H PRN (Reason: nausea and vomiting) Qty: 14 0RF No Action hydroxyzine HCl 50 mg tablet 50 mg PO BID PRN (Reason: Anxiety) ondansetron 4 mg tablet,disintegrating 4 mg PO Q8H PRN (Reason: nausea and vomiting) Qty: 15 0RF bupropion HCl 150 mg Tablet Extended Release 24 Hr 150 mg PO DAILY 30 Days Qty: 30 1RF ondansetron 4 mg tablet,disintegrating 4 mg PO Q6H PRN (Reason: nausea and vomiting) Qty: 14 0RF Reglan 10 mg tablet 10 mg PO Q6H PRN (Reason: nausea and vomiting) Qty: 20 0RF promethazine 50 mg tablet 50 mg PO Q6H PRN (Reason: nausea/vomiting) Qty: 14 0RF amoxicillin-pot clavulanate 875-125 mg tablet 1 tab PO BID Qty: 14 0RF Discharge Orders: Discharge ED (Routine); Ordered 07/04/22 Ordered By: Danielle Cage Referrals: Mickey Camarillo MD [Primary Care Provider] - 1-3 days Discharge Diet: Advance as tolerated Discharge Activity: Resume usual activity Patient Instructions: Acute Nausea and Vomiting (ED), Abdominal Pain (ED) Coding Level of Care Code ED Memory Care Program Resident for Chg Fwd Exam Comprehensive
[2022-07-04 03:11] VITALS: BP 131/89; PULSE 87; RESP 14; O2SAT 100
[2022-07-04] MEDS: sodium chloride 0.9% 1,000 ML 999 ML IV ×2 (03:11→03:47)
[2022-07-04] MEDS: diphenhydrAMINE 50 mg/mL SDV 1mL IVP (03:11)
[2022-07-04] MEDS: metoclopramide 5 mg/mL SDV 2 mL 10 MG IVP (03:11)
[2022-07-04 03:18] LABS: Basophils % 0.3 %; Eosinophils % 0.2 %; Hematocrit 49.9 % (37.0-47.0); Lymphocytes # 4.2 10^3/uL (0.8-4.8); Lymphocytes % 30.2 %; Mean Corpuscular HGB Conc 34.1 g/dL (30.0-36.0); Mean Corpuscular Hemoglobin 29.9 pg (28.0-34.0); Mean Corpuscular Volume 87.9 fl (81-99); Mean Platelet Volume 9.8 fL (7.4-10.4); Monocytes % 7.3 %; Neutrophils # 8.47 10^3/uL (1.8-7.7); Neutrophils % 61.4 %; Nucleated Red Blood Cells % 0 %; Platelet Count 323 10^3/cmm (130-400); Red Blood Count 5.68 10^6/uL (4.1-5.3); White Blood Count 13.8 10^3/uL (4.0-10.0)
[2022-07-04 03:24] LABS: HCG, Serum Qual Negative (Negative)
[2022-07-04 03:30] VITALS: BP 125/76; PULSE 85; RESP 14; O2SAT 98
[2022-07-04 03:31] LABS: Alanine Aminotransferase 14 U/L (0-33); Albumin Level 5.1 g/dL (3.5-5.2); Alkaline Phosphatase 68 U/L (35-105); Anion Gap 30.1 (5-19); Aspartate Amino Transferase 16 U/L (0-32); Blood Urea Nitrogen 11 mg/dL (6-20); Calcium 10.3 mg/dL (8.5-10.5); Carbon Dioxide 15 mmol/L (22-29); Chloride 93 mmol/L (98-107); Globulin 3.2 g/dL (1.3-4.6); Glomerular Filtration Rate 102.8 mL/min (90-130); Glucose 75 mg/dL (65-115); Lipase 16 U/L (13-60); Osmolality Calculated 278 mOsm/kg (285-295); Potassium 3.1 mmol/L (3.5-5.1); Sodium 135 mmol/L (136-145); Total Bilirubin 1.1 mg/dL (0.15-1.2); Total Protein 8.3 g/dL (6.6-8.7)
[2022-07-04] MEDS: sodium chloride 0.9% 500 ML 999 ML IV (03:47)
--- NOTE | 2022-07-04 03:47 | CTR_ITS ---
PROCEDURE INFORMATION: Exam: CT Abdomen And Pelvis With Contrast Exam date and time: 07/04/2022 3:58 AM Age: 26 years old Clinical indication: Nausea and vomiting; Abdominal pain; Localized; Right upper quadrant (ruq); Patient HX: Ruq pain with n/v. ; Additional info: Abd pain TECHNIQUE: Imaging protocol: Computed tomography of the abdomen and pelvis with contrast. Radiation optimization: All CT scans at this facility use at least one of these dose optimization techniques: automated exposure control; mA and/or kV adjustment per patient size (includes targeted exams where dose is matched to clinical indication); or iterative reconstruction. Contrast material: OMNI 350; Contrast volume: 100 ml; Contrast route: INTRAVENOUS (IV); COMPARISON: CT abdomen pelvis wo con [id number] 03/06/2022 11:58 AM RADIATION DOSE METRICS: Total DLP (mGy-cm): 425.23 FINDINGS: Lungs: The visualized lung bases are clear. Liver: Unchanged hepatic focal fatty infiltration adjacent to the falciform ligament. No suspicious liver mass is noted. Gallbladder and bile ducts: No calcified gallstones or biliary dilation identified. Pancreas: Unremarkable with no suspicious mass. No ductal dilation. Spleen: The spleen is not enlarged. No suspicious enhancing mass is noted. Adrenal glands: Normal. No mass. Kidneys and ureters: No solid renal mass or hydronephrosis. Stomach and bowel: No small bowel obstruction or free air. No overt mucosal thickening. Appendix: No evidence of appendicitis. Intraperitoneal space: Unremarkable. No free air. No suspicious fluid collection. Vasculature: No AAA or acute vascular lesion identified. Lymph nodes: No enlarged lymph nodes. Urinary bladder: Borderline bladder wall thickening probably relates to underdistention. Of note, there is right upper quadrant pain. Reproductive: Unremarkable as visualized. Bones/joints: No acute fracture. Soft tissues: Minute fat umbilical hernia. CT/CT abdomen pelvis w con* [id number] IMPRESSION: 1. No acute finding visualized. 2. No significant change from 03/06/2022.
[2022-07-04 04:01] LABS: Urine Appearance Clear (CLEAR); Urine Color Dark Yellow (Yellow); pH Urine 6 (5-7)
[2022-07-04] MEDS: iohexol 350 mg/mL 500 mL Btl (per mL) IV (04:01)
[2022-07-04 04:02] LABS: Add Urine Microscopic? YES; Bilirubin Urine 1+ (Negative); Blood Urine 3+ (Negative); Glucose Urine UA Norm (Normal); Ketones Urine 3+ (Negative); Leukocyte Esterase Urine Trace (Negative); Nitrate Urine Negative (Negative); Protein Urine 3+ (Negative); RBC Urine 15-25 /hpf (0-2); Specific Gravity, Urine 1.025 (1.005-1.030); Urobilinogen Urine 1 mg/dL (Negative)
[2022-07-04 04:03] LABS: Add Urine Culture? No; Amorphous Sediment Urine 2+ /hpf; Bacteria Urine 1+ /hpf; Hyaline Casts Urine 0-4 /lpf; WBC Urine 0-4 /hpf (0-5)
[2022-07-04] MEDS: ondansetron 2 mg/ML SDV 2 mL 4 MG IVP (04:09)
[2022-07-04 04:17] VITALS: BP 157/105; PULSE 77; RESP 14; O2SAT 100
[2022-07-04 04:55] LABS: Anion Gap 24.2 (5-19); Blood Urea Nitrogen 10 mg/dL (6-20); Calcium 8.7 mg/dL (8.5-10.5); Carbon Dioxide 17 mmol/L (22-29); Chloride 97 mmol/L (98-107); Glomerular Filtration Rate 102.8 mL/min (90-130); Glucose 64 mg/dL (65-115); Osmolality Calculated 277 mOsm/kg (285-295); Potassium 3.2 mmol/L (3.5-5.1); Sodium 135 mmol/L (136-145)
== END 2022-07-04 05:15 | disposition home or self-care (01) ==
PROVIDERS: Emergency Provider Emergency Medicine; PCP Family Medicine
DX: R11.2 Nausea with vomiting, unspecified (principal); R10.84 Generalized abdominal pain
CPT/HCPCS: 74177; 80048; 80053; 81001; 83690; 84703; 85025; 96361; 96374; 96375; 99285; J1200; J2405; J2765; J7030; J7040; Q9967

== ENCOUNTER → 2022-11-03 13:08 | Outpatient (BNVA) | payer MEDICAID, SELFPAY | PROVIDERS: PCP Family Medicine; Referring Provider Family Medicine; Visit Provider Obstetrics & Gynecology | DX: Z12.4 Encounter for screening for malignant neoplasm of cervix (principal) | CPT/HCPCS: 88175 ==

== ENCOUNTER → 2022-11-23 12:08 | Outpatient (BNVA) | payer MEDICAID, SELFPAY | PROVIDERS: PCP Family Medicine; Visit Provider Obstetrics & Gynecology | DX: R10.2 Pelvic and perineal pain (principal) | CPT/HCPCS: 76830 ==

== ENCOUNTER 2023-12-12 16:56 | Emergency (ER) | payer MEDICAID, SELFPAY ==
[2023-12-12 17:34] VITALS: BP 110/73; PULSE 66; RESP 18; TEMP 36.7; O2SAT 98; BMI 25.8
[2023-12-12 17:34] LABS: Basophils % 0.1 %; Hematocrit 41.7 % (36-47); Lymphocytes # 2.1 10^3/uL (0.8-4.8); Lymphocytes % 19.6 %; Mean Corpuscular HGB Conc 33.1 g/dL (30-55); Mean Corpuscular Hemoglobin 29.2 pg (27-33); Mean Corpuscular Volume 88.3 fl (85-98); Monocytes # 0.5 10^3/uL (0.2-0.9); Monocytes % 4.3 %; Neutrophils # 8.18 10^3/uL (1.8-7.7); Neutrophils % 75.7 %; Nucleated Red Blood Cells % 0 %; Platelet Count 291 10^3/cmm (157-399); Red Blood Count 4.72 10^6/uL (3.85-5.65); Red Cell Distribution Width 12.8 % (12.1-15.1)
[2023-12-12 17:53] LABS: HCG, Serum Qual Negative (Negative)
[2023-12-12 17:54] LABS: Alanine Aminotransferase 11 U/L (0-33); Albumin Level 4.8 g/dL (3.5-5.2); Alkaline Phosphatase 75 U/L (35-105); Anion Gap 19.3 (5-19); Aspartate Amino Transferase 12 U/L (0-32); Blood Urea Nitrogen 11 mg/dL (6-20); Calcium 9.2 mg/dL (8.5-10.5); Carbon Dioxide 20 mmol/L (22-29); Chloride 102 mmol/L (98-107); Creatinine Clr Calc Pharmacy 128.6178; Glomerular Filtration Rate 101.1 mL/min (90-130); Glucose 90 mg/dL (65-115); Lipase 17 U/L (13-60); Osmolality Calculated 285 mOsm/kg (285-295); Potassium 3.3 mmol/L (3.5-5.1); Sodium 138 mmol/L (136-145); Total Bilirubin 0.6 mg/dL (0.15-1.2); Total Protein 7.8 g/dL (6.6-8.7)
[2023-12-12] MEDS: sodium chloride 0.9% 1,000 ML 999 ML IV (18:32)
--- NOTE | 2023-12-12 18:51 | ED_ITS ---
HPI - Nausea/Vomiting/Diarrhea 2 General: Chief complaint: Nausea/Vomiting/Diarrhea Stated complaint: vomiting Time Seen by Provider: 12/12/23 18:11 History of Present Illness: Patient presents to the ER with complaints of nausea vomiting and upper abdominal pain for the last 3 days. Patient says she cannot keep water down she is vomited probably 20 times in the last 24 hours. Currently rates her pain a 5 out of 10 dull achy. Patient has had her gallbladder out and she says this feels exactly the same way as the pain nausea vomiting she had before her gallbladder was taken out. After her gallbladder was taken out she went back to normal and has been fine ever since up until now. Review of Systems 2 General: Reports: 10 or more systems reviewed and unremarkable except in HPI and below PFSH ED 2 PFSH: Medical History No pertinent family history Depression Family History Mother Diabetes Endometriosis Cancer Father Hypertension Denies family history of CAD (coronary artery disease) Psychiatric illness Chronic kidney disease (CKD) Lung disease Stroke Social History Substance/Drug Use: unknown Physical Exam 2 Const: COMMON NORMALS: no acute distress, average body habitus, patient oriented x3, no limitations, healthy appearing, alert and well nourished HENMT: COMMON NORMALS: normocephalic, atraumatic, hearing grossly normal bilaterally, external ears normal, Normal external nose present, moist oral mucous membranes and oropharynx normal HEAD & SCALP: normocephalic and atraumatic NOSE: Normal external nose present EXTERNAL EAR: Yes external ears normal Neck/C-Spine: COMMON NORMALS: no JVD Chest: COMMONS NORMALS: normal inspection of the chest and normal palpation of entire chest wall Resp: COMMON NORMALS: normal respiratory effort, No retractions, No use of accessory muscles and clear to auscultation bilaterally AUSCULTATION: clear to auscultation bilaterally Cardio: COMMON NORMALS: no JVD, regular rate, regular rhythm, S1 normal heart sound present, S2 normal heart sound present, No gallops present (Cardio), No clicks present (Cardio), No murmurs present (Cardio) and No rub (Cardio) R ATE: regular rate RHYTHM: regular rhythm HEART SOUNDS: S1 normal heart sound present and S2 normal heart sound present GI: COMMON NORMALS: Normal to inspection, nondistended, normoactive bowel sounds present, Soft to palpation and No hepatosplenomegaly present; negative for non-tender (Diffusely tender to palpation worse over epigastric and right upper quadran) PALPATION: Yes Soft to palpation and Yes No hepatosplenomegaly present Neuro: COMMON NORMALS: patient oriented x3 SENSORIUM/ORIENTATION: Yes alert Course 2 Vital Signs: Vital signs: Vital Signs Temperature 98.0 F 12/12/23 17:34 Pulse Rate 66 12/12/23 17:34 Respiratory Rate 18 12/12/23 17:34 Blood Pressure 110/73 12/12/23 17:34 Pulse Oximetry 98 12/12/23 17:34 Oxygen Delivery Me thod Room Air 12/12/23 17:34 MDM - Nausea/Vomiting/Diarrhea Medical Decision Making Patient abruptly left AMA before evaluation was finished. Differential Diagnosis Unlikely traveler's diarrhea, food poisoning, gastroenteritis, clostridium difficile infection, drug-induced nausea and vomiting or dehydration Medical Records I reviewed the patient's medical records. Lab Data I reviewed the patient's lab results. 12/12/23 17:22 12/12/23 17:22 Laboratory Results WBC 10.80 10^3/uL (3.29-11.43) 12/12/23 17: RBC 4.72 10^6/uL (3.85-5.65) 12/12/23 17: Hgb 13.80 g/dL (11.27-16.99) 12/12/23 17: Hct 41.7 % (36-47) 12/12/23 17: MCV 88.3 fl (85-98) 12/12/23 17: MCH 29.2 pg (27-33) 12/12/23 17: MCHC 33.1 g/dL (30-55) 12/12/23 17: RDW 12.8 % (12.1-15.1) 12/12/23 17: Plt Count 291 10^3/cmm (157-399) 12/12/23 17: MPV 10.0 fL (7.4-10.4) 12/12/23 17:22 Neut % (Auto) 75.7 % 12/12/23 17:22 Lymph % (Auto) 19.6 % 12/12/23 17:22 [place] % (Auto) 4.3 % 12/12/23 17:22 Eos % (Auto) 0.0 % 12/12/23 17:22 Baso % (Auto) 0.1 % 12/12/23 17:22 Neut # (Auto) 8.18 10^3/uL (1.8-7.7) H 12/12/23 17:22 Lymph # (Auto) 2.1 10^3/uL (0.8-4.8) 12/12/23 17:22 [place] # (Auto) 0.5 10^3/uL (0.2-0.9) 12/12/23 17:22 Eos # (Auto) 0.0 10^3/uL (0.0-0.8) 12/12/23 17: Baso # (Auto) 0.0 10^3/uL (0.0-0.1) 12/12/23 17:22 Nucleated RBC % (auto) 0 % 12/12/23 17: Nucleated RBCs # 0.0 /100WBC 12/12/23 17:22 Sodium 138 mmol/L (136-145) 12/12/23 17:22 Potassium 3.3 mmol/L (3.5-5.1) L 12/12/23 17:22 Chloride 102 mmol/L (98-107) 12/12/23 17:22 Carbon Dioxide 20 mmol/L (22-29) L 12/12/23 17:22 Anion Gap 19.3 (5-19) H 12/12/23 17:22 BUN 11 mg/dL (6-20) 12/12/23 17:22 Creatinine 0.7 mg/dL (0.5-0.9) 12/12/23 17:22 GFR Calculation 101.1 mL/min (90-130) 12/12/23 17:22 Glucose 90 mg/dL (65-115) 12/12/23 17:22 Calculated Osmolality 285 mOsm/kg (285-295) 12/12/23 17:22 Calcium 9.2 mg/dL (8.5-10.5) 12/12/23 17:22 Magnesium 1.7 mg/dL (1.7-2.3) 12/12/23 17:22 Total Bilirubin 0.6 mg/dL (0.15-1.2) 12/12/23 17:22 AST 12 U/L (0-32) 12/12/23 17:22 ALT 11 U/L (0-33) 12/12/23 17:22 Alkaline Phosphatase 75 U/L (35-105) 12/12/23 17:22 Total Protein 7.8 g/dL (6.6-8.7) 12/12/23 17:22 Albumin 4.8 g/dL (3.5-5.2) 12/12/23 17: Globulin 3.0 g/dL (1.3-4.6) 12/12/23 17: Lipase 17 U/L (13-60) 12/12/23 17:22 HCG, Qual Negative (Negative) 12/12/23 17:22 No radiology studies performed this visit Discharge Plan Discharge Patient Disposition: Left Against Medical Advice Condition: Stable Prescriptions: No Action citalopram 10 mg tablet 10 mg PO DAILY citalopram 20 mg tablet 20 mg PO DAILY medroxyprogesterone [Depo-Provera] 150 mg/mL suspension IM ibuprofen 800 mg tablet 800 mg PO TID Qty: 90 0RF hydroxyzine HCl 50 mg tablet 50 mg PO BID PRN (Reason: Anxiety) ondansetron 4 mg tablet,disintegrating 4 mg PO Q6H PRN (Reason: nausea and vomiting) Qty: 14 0RF Coding Level of Care 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
[2023-12-12] MEDS: ondansetron 2 mg/ML SDV 2 mL 4 MG IVP (18:57)
[2023-12-12 19:05] LABS: Magnesium 1.7 mg/dL (1.7-2.3)
== END 2023-12-12 19:41 | disposition left against medical advice (07) ==
PROVIDERS: Emergency Medicine; Emergency Provider Emergency Medicine; PCP Family Medicine
DX: R11.2 Nausea with vomiting, unspecified (principal); R10.10 Upper abdominal pain, unspecified; Z53.29 Procedure and treatment not carried out because of patient's decision for other reasons
CPT/HCPCS: 36415; 80053; 83690; 83735; 84703; 85025; 96361; 96374; 99284; J2405; J7030

== ENCOUNTER 2023-12-13 08:29 | Emergency (ER) | payer MEDICAID, SELFPAY ==
[2023-12-13 08:49] VITALS: BP 154/83; PULSE 55; RESP 17; TEMP 37; O2SAT 100; BMI 25.8
--- NOTE | 2023-12-13 09:00 | CT_ITS ---
WS: [id number] CT ABDOMEN AND PELVIS NONCONTRAST HISTORY: Abdominal pain TECHNIQUE: Imaging performed through the abdomen and pelvis. Coronal and sagittal reformats are submi tted. All CT scans at [facility] use at least one of these dose optimization techniques: auto mated exposure control; mA and/or kV adjustment per patient size (includes targeted exams where dose is matched to clinical indication); or iterative reconstruction. DLP: 427.17 mGy.cm COMPARISON: 10/01/2018, 07/04/2022 Lower thorax: Lung bases are clear. Visualized heart is normal. No hiatal hernia. Liver: Normal size liver. Area of decreased attenuation on the falciform ligament measures 1.7 x 2.8 cm and is similar to the most recent exam of 07/04/2022. Most likely an area of hepatic steatosis. Gallbladder: Prior cholecystectomy. No duct dilatation. Pancreas: Noncontrast imaging is unremarkable. Spleen: Normal. Adrenal glands: Normal. No mass. Right kidney: Normal size kidney with no mass or hydronephrosis. Left kidney: Normal size kidney with no mass or hydronephrosis. Aorta: Normal abdominal aorta, no aneurysm or atherosclerosis. No free fluid, intraperitoneal air or significant lymphadenopathy. GI tract: Normal noncontrast imaging of the stomach, small bowel and colon. No obstruction or wall th ickening. Normal appendix. Abdominal wall: Small umbilical hernia contains fat only. Pelvis: Normal size anteverted uterus. No pelvic mass. No free fluid. Osseous structures: Unremarkable. CT/CT abdomen pelvis wo con [id number] IMPRESSION: 1. Status post cholecystectomy. 2. No GI tract obstruction. 3. Normal appendix. 4. Long-term stability hepatic steatosis along the falciform ligament. 5. No acute abdomen or pelvic abnormality.
[2023-12-13 09:10] VITALS: BP 154/83; PULSE 63; O2SAT 100
[2023-12-13 09:31] LABS: Basophils % 0.3 %; Hematocrit 39.4 % (36-47); Lymphocytes % 19.1 %; Mean Corpuscular Hemoglobin 29.4 pg (27-33); Mean Corpuscular Volume 89.1 fl (85-98); Monocytes # 0.4 10^3/uL (0.2-0.9); Monocytes % 3.6 %; Neutrophils # 8.01 10^3/uL (1.8-7.7); Neutrophils % 76.6 %; Nucleated Red Blood Cells % 0 %; Platelet Count 267 10^3/cmm (157-399); Red Blood Count 4.42 10^6/uL (3.85-5.65); Red Cell Distribution Width 12.7 % (12.1-15.1); White Blood Count 10.46 10^3/uL (3.29-11.43)
[2023-12-13 09:50] LABS: Alanine Aminotransferase 10 U/L (0-33); Albumin Level 4.4 g/dL (3.5-5.2); Alkaline Phosphatase 68 U/L (35-105); Anion Gap 18.4 (5-19); Aspartate Amino Transferase 13 U/L (0-32); Blood Urea Nitrogen 10 mg/dL (6-20); Calcium 9.1 mg/dL (8.5-10.5); Carbon Dioxide 19 mmol/L (22-29); Chloride 105 mmol/L (98-107); Creatinine Clr Calc Pharmacy 128.6178; Globulin 2.8 g/dL (1.3-4.6); Glomerular Filtration Rate 101.1 mL/min (90-130); Glucose 79 mg/dL (65-115); Lipase 11 U/L (13-60); Osmolality Calculated 286 mOsm/kg (285-295); Potassium 3.4 mmol/L (3.5-5.1); Sodium 139 mmol/L (136-145); Total Bilirubin 0.7 mg/dL (0.15-1.2); Total Protein 7.2 g/dL (6.6-8.7)
--- NOTE | 2023-12-13 10:28 | ED_ITS ---
HPI - Nausea/Vomiting/Diarrhea 2 General: Chief complaint: Nausea/Vomiting/Diarrhea Stated complaint: n,v, Time Seen by Provider: 12/13/23 08:58 Source: patient Mode of arrival: ambulatory History of Present Illness: 28-year-old female who presents to the e mergency room with complaints of persistent nausea and vomiting. She had nausea and vomiting yesterday she came here to be seen and of leaving without being seen and has persistent symptoms this morning. She has had a low-grade fever and abdominal pain cramping denies any hematochezia melena hematemesis or coffee-ground emesis no dysuria urgency or frequency MD elicited complaint: nausea and vomiting Associated symtoms: Denies chest pain or dysuria Review of Systems 2 Const: Denies: fever(s) or chills Card: Denies: chest pain Resp: Denies: dyspnea GI: Denies: abdominal pain : Denies: dysuria, urinary frequency or urinary urgency Musc: Denies: neck pain or back pain Skin/Breast: Denies: rash PFSH ED 2 PFSH: Medical History No pertinent family history Depression Family History Mother Diabetes Endometriosis Cancer Father Hypertension Denies family history of CAD (coronary artery disease) Psychiatric illness Chronic kidney disease (CKD) Lung disease Stroke Social History Substance/Drug Use: unknown Physical Exam 2 Const: COMMON NORMALS: no acute distress GENERAL APPEARANCE: cooperative and comfortable ORIENTATION/CONSCIOUSNESS: Yes awake, Yes oriented to person, Yes oriented to place and Yes oriented to time HENMT: COMMON NORMALS: normocephalic, atraumatic and hearing grossly normal bilaterally HEAD & SCALP: normocephalic and atraumatic Resp: COMMON NORMALS: normal respiratory effort, No retractions, No use of accessory muscles and clear to auscultation bilaterally AUSCULTATION: clear to auscultation bilaterally Cardio: COMMON NORMALS: regular rate, regular rhythm and No murmurs present (Cardio) RATE: regular rate RHYTHM: regular rhythm GI: COMMON NORMALS: Soft to palpation and No hepatosplenomegaly present A USCULTATION: Yes normoactive bowel sounds PALPATION: Yes Soft to palpation, No Tenderness to palpation present (GI), No Guarding due to palpation present (GI) and Yes No hepatosplenomegaly present Extremity: COMMON NORMALS: normal to inspection, capillary refill normal, no clubbing, cyanosis or edema, no calf tenderness and no pedal edema Neuro: SENSORIUM/ORIENTATION: Yes oriented to person, Yes oriented to place and Yes oriented to time Skin: COMMON NORMALS: no rashes or lesions noted GENERAL SKIN EXAM: no rashes or lesions noted Course 2 Vital Signs: Vital signs: Vital Signs Temperature 98.6 F 12/13/23 11:28 Pulse Rate 67 12/13/23 11:28 Respiratory Rate 17 12/13/23 11:28 Blood Pressure 121/70 12/13/23 11:28 Pulse Oximetry 100 12/13/23 11:28 Oxygen Delivery Me thod Room Air 12/13/23 11:17 MDM - Nausea/Vomiting/Diarrhea Medical Decision Making Persistent nausea vomiting. Improved with medications and fluids given in the emergency room. Labs reviewed no leukocytosis mild hypokalemia but very minimal. UA shows mostly contamination no acute cystitis. Reviewed findings with the patient CT is unremarkable discharge patient home. Clear liquid diet antiemetics as needed return if has further problems Medical Records I reviewed the patient's medical records. Lab Data I reviewed the patient's lab results. 12/13/23 09:25 12/13/23 09:25 Radiology Impressions Abdomen/Pelvis CT 12/13/23 09:00 IMPRESSION: 1. Status post cholecystectomy. 2. No GI tract obstruction. 3. Normal appendix. 4. Long-term stability hepatic steatosis along the falciform ligament. 5. No acute abdomen or pelvic abnormality. Laboratory Results WBC 10.46 10^3/uL (3.29-11.43) 12/13/23 09:25 RBC 4.42 10^6/uL (3.85-5.65) 12/13/23 09:25 Hgb 13.00 g/dL (11.27-16.99) 12/13/23 09:25 Hct 39.4 % (36-47) 12/13/23 09:25 MCV 89.1 fl (85-98) 12/13/23 09:25 MCH 29.4 pg (27-33) 12/13/23 09:25 MCHC 33.0 g/dL (30-55) 12/13/23 09:25 RDW 12.7 % (12.1-15.1) 12/13/23 09:25 Plt Count 267 10^3/cmm (157-399) 12/13/23 09:25 MPV 10.0 fL (7.4-10.4) 12/13/23 09:25 Neut % (Auto) 76.6 % 12/13/23 09:25 Lymph % (Auto) 19.1 % 12/13/23 09:25 [place] % (Auto) 3.6 % 12/13/23 09:25 Eos % (Auto) 0.0 % 12/13/23 09:25 Baso % (Auto) 0.3 % 12/13/23 09:25 Neut # (Auto) 8.01 10^3/uL (1.8-7.7) H 12/13/23 09:25 Lymph # (Auto) 2.0 10^3/uL (0.8-4.8) 12/13/23 09:25 [place] # (Auto) 0.4 10^3/uL (0.2-0.9) 12/13/23 09:25 Eos # (Auto) 0.0 10^3/uL (0.0-0.8) 12/13/23 09:25 Baso # (Auto) 0.0 10^3/uL (0.0-0.1) 12/13/23 09:25 Nucleated RBC % (auto) 0 % 12/13/23 09:25 Nucleated RBCs # 0.0 /100WBC 12/13/23 09:25 Sodium 139 mmol/L (136-145) 12/13/23 09:25 Potassium 3.4 mmol/L (3.5-5.1) L 12/13/23 09:25 Chloride 105 mmol/L (98-107) 12/13/23 09:25 Carbon Dioxide 19 mmol/L (22-29) L 12/13/23 09:25 Anion Gap 18.4 (5-19) 12/13/23 09:25 BUN 10 mg/dL (6-20) 12/13/23 09:25 Creatinine 0.7 mg/dL (0.5-0.9) 12/13/23 09:25 GFR Calculation 101.1 mL/min (90-130) 12/13/23 09:25 Glucose 79 mg/dL (65-115) 12/13/23 09:25 Calculated Osmolality 286 mOsm/kg (285-295) 12/13/23 09:25 Calcium 9.1 mg/dL (8.5-10.5) 12/13/23 09:25 Total Bilirubin 0.7 mg/dL (0.15-1.2) 12/13/23 09:25 AST 13 U/L (0-32) 12/13/23 09:25 ALT 10 U/L (0-33) 12/13/23 09:25 Alkaline Phosphatase 68 U/L (35-105) 12/13/23 09:25 Total Protein 7.2 g/dL (6.6-8.7) 12/13/23 09:25 Albumin 4.4 g/dL (3.5-5.2) 12/13/23 09:25 Globulin 2.8 g/dL (1.3-4.6) 12/13/23 09:25 Lipase 11 U/L (13-60) L 12/13/23 09:25 Urine Color Dark yellow (Yellow) 12/13/23 09:19 Urine Appearance Cloudy (CLEAR) A 12/13/23 09:19 Urine pH 6 (5-7) 12/13/23 09:19 Ur Specific [place] 1.030 (1.005-1.030) 12/13/23 09:19 Urine Protein Neg (Negative) 12/13/23 09:19 Urine Glucose (UA) Norm (Normal) 12/13/23 09:19 Urine Ketones 3+ (Negative) H 12/13/23 09:19 Urine Blood Neg (Negative) 12/13/23 09:19 Urine Nitrate Negative (Negative) 12/13/23 09:19 Urine Bilirubin 1+ (Negative) H 12/13/23 09:19 Urine Urobilinogen 1 mg/dL (Negative) H 12/13/23 09:19 Ur Leukocyte Esterase Negative (Negative) 12/13/23 09:19 Urine RBC 0-4 /hpf (0-2) H 12/13/23 09:19 Urine WBC 0-4 /hpf (0-5) H 12/13/23 09:19 Ur Squamous Epith Cells 5-10 /hpf (0-5) H 12/13/23 09:19 Ur Transition Epith Cell 0-4 /hpf 12/13/23 09:19 Amorphous Sediment Not Reportable 12/13/23 09:19 Urine Bacteria 1+ /hpf (NONE) H 12/13/23 09:19 Urine Mucus 2+ /hpf 12/13/23 09:19 All radiology interpretation(s) finalized by discharge Discharge Plan Discharge Patient Disposition: Home Clinical Impression: Gastroenteritis Condition: Stable Prescriptions: New promethazine 25 mg tablet 25 mg PO Q6H PRN (Reason: nausea and vomiting) Qty: 20 0RF No Action citalopram 10 mg tablet 10 mg PO DAILY citalopram 20 mg tablet 20 mg PO DAILY medroxyprogesterone [Depo-Provera] 150 mg/mL suspension IM ibuprofen 800 mg tablet 800 mg PO TID Qty: 90 0RF hydroxyzine HCl 50 mg tablet 50 mg PO BID PRN (Reason: Anxiety) ondansetron 4 mg tablet,disintegrating 4 mg PO Q6H PRN (Reason: nausea and vomiting) Qty: 14 0RF Discharge Orders: Discharge ED (Routine); Ordered 12/13/23 Ordered By: Abdiel Hernandez Referrals: Mickey Camarillo MD [Primary Care Provider] - Discharge Diet: Clear Liquid Discharge Activity: Increase activity as tolerated Patient Instructions: Opioid Safety, Pain Management Activity Restrictions/Additional Instructions: Thank you for choosing [facility] for your healthcare needs today. Please realize this is an emergency room and that we are providing you with a medical screening exam and this may not be complete and all inclusive of all the testing and or work up that you may need to determine your ailment or severity of your illness. It is very important that you follow up as instructed or that you return to the Emergency Department should you have concerns or if your condition changes or worsens in any way. You are seen today for persistent nausea vomiting CT of your abdomen and laboratory test did not show significant abnormality. Recommend clear liquid diet for the next 24 to 48 hours and advance as tolerated. Promethazine as needed. Return to the emergency room for further problems. 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
[2023-12-13 10:34] VITALS: BP 154/83; PULSE 63; O2SAT 100
[2023-12-13 10:45] LABS: Protein Urine Neg (Negative); Urine Appearance Cloudy (CLEAR); Urine Color Dark Yellow (Yellow); pH Urine 6 (5-7)
[2023-12-13 10:46] LABS: Add Urine Microscopic? YES; Bilirubin Urine 1+ (Negative); Blood Urine Neg (Negative); Glucose Urine UA Norm (Normal); Ketones Urine 3+ (Negative); Leukocyte Esterase Urine Negative (Negative); Nitrate Urine Negative (Negative); Urobilinogen Urine 1 mg/dL (Negative)
[2023-12-13 10:47] LABS: RBC Urine 0-4 /hpf (0-2); WBC Urine 0-4 /hpf (0-5)
[2023-12-13 10:48] LABS: Add Urine Culture? No; Bacteria Urine 1+ /hpf; Mucus Urine 2+ /hpf; Transitional Epi Cells Urine 0-4 /hpf
[2023-12-13 11:17] VITALS: BP 121/70; PULSE 67; O2SAT 100
[2023-12-13 11:28] VITALS: BP 121/70; PULSE 67; RESP 17; TEMP 37; O2SAT 100
== END 2023-12-13 11:29 | disposition home or self-care (01) ==
PROVIDERS: Emergency Provider Family Medicine; PCP Family Medicine
DX: K52.9 Noninfective gastroenteritis and colitis, unspecified (principal)
CPT/HCPCS: 36415; 74176; 80053; 81001; 83690; 85025; 99284

== ENCOUNTER 2024-04-11 10:29 | Emergency (ER) | payer MEDICAID, SELFPAY ==
[2024-04-11 10:48] VITALS: BP 117/71; PULSE 96; RESP 18; TEMP 36.9; O2SAT 98; BMI 25.5
[2024-04-11 11:45] LABS: Basophils % 0.2 %; Eosinophils # 0.1 10^3/uL (0.0-0.8); Eosinophils % 0.5 %; Hematocrit 44.3 % (36-47); Lymphocytes # 2.9 10^3/uL (0.8-4.8); Lymphocytes % 17.8 %; Mean Corpuscular HGB Conc 33.6 g/dL (30-55); Mean Corpuscular Hemoglobin 29.9 pg (27-33); Mean Platelet Volume 9.2 fL (7.4-10.4); Monocytes # 1.2 10^3/uL (0.2-0.9); Monocytes % 7.4 %; Neutrophils # 12.22 10^3/uL (1.8-7.7); Neutrophils % 73.7 %; Nucleated Red Blood Cells % 0 %; Platelet Count 303 10^3/cmm (157-399); Red Blood Count 4.98 10^6/uL (3.85-5.65); Red Cell Distribution Width 14.7 % (12.1-15.1); White Blood Count 16.55 10^3/uL (3.29-11.43)
[2024-04-11 12:00] LABS: Alanine Aminotransferase 13 U/L (0-33); Albumin Level 5.2 g/dL (3.5-5.2); Alkaline Phosphatase 74 U/L (35-105); Anion Gap 19.2 (5-19); Aspartate Amino Transferase 14 U/L (0-32); Blood Urea Nitrogen 8 mg/dL (6-20); Calcium 10.3 mg/dL (8.5-10.5); Carbon Dioxide 24 mmol/L (22-29); Chloride 95 mmol/L (98-107); Creatinine Clr Calc Pharmacy 179.0884; Globulin 3.1 g/dL (1.3-4.6); Glomerular Filtration Rate 149.1 mL/min (90-130); Glucose 88 mg/dL (65-115); Osmolality Calculated 278 mOsm/kg (285-295); Potassium 3.2 mmol/L (3.5-5.1); Sodium 135 mmol/L (136-145); Total Bilirubin 0.8 mg/dL (0.15-1.2); Total Protein 8.3 g/dL (6.6-8.7)
[2024-04-11] MEDS: sodium chloride 0.9% 1,000 ML 999 ML IV ×2 (13:05→13:53)
--- NOTE | 2024-04-11 13:24 | ED_ITS ---
HPI - Nausea/Vomiting/Diarrhea 2 General: Chief complaint: Nausea/Vomiting/Diarrhea Stated complaint: n,v, 7 weeks preg Time Seen by Provider: 04/11/24 12:42 History of Present Illness: 28-year-old female presents emergency de partment with her mother chief complaint of persistent nausea vomiting she endorses that she is approximately 8 weeks per dates she is scheduled to be seen by her digital asset specialist in the next week and a half patient denies any actual abdominal pain cramping vaginal bleeding or discharge she endorses issues with gastritis as well as vomiting with her previous 2 pregnancies however no complications were noted during them patient endorses significant morning sickness and appetite reduction since the onset of this with darkening of her urine patient reports no other associated symptoms. Associated nausea: Yes Associated symtoms: Reports fatigue, malaise and nausea; Denies anxiety, change in vision, chest pain, headache(s) or palpitations Related Data Home Medications Medication Instructions Recorded Confirmed paroxetine HCl 40 mg tablet 40 mg PO DAILY 04/11/24 04/11/24 vitamin with calcium 1 tab PO DAILY 04/11/24 04/11/24 no.72-iron 27 mg-folic acid 1 mg tablet (M- Plus) Previous Rx's Medication Instructions Recorded promethazine 25 mg tablet 25 mg PO Q6H PRN nausea and 12/13/23 vomiting #20 tabs nitrofurantoin 100 mg PO BID 7 days #14 caps 04/11/24 monohydrate/macrocrystals 100 mg capsule (Macrobid) ondansetron 4 mg disintegrating 4 mg PO QID PRN nausea and 04/11/24 tablet vomiting #20 tabs promethazine 12.5 mg rectal 12.5 mg MN Q6H PRN nausea and 04/11/24 suppository vomiting #12 ea Allergies Allergy/AdvReac Type Severity Reaction Status Date / Time Cephalosporins Allergy ALGY-Rash Verified 04/02/23 07:44 latex Allergy ALGY-Rash Verified 04/02/23 07:44 Review of Systems 2 General: Reports: 10 or more systems reviewed and unremarkable except in HPI and below Const: Reports: fatigue and malaise; Denies: fever(s) or chills Eyes: Denies: change in vision or blurry vision Card: Denies: chest pain or palpitations Resp: Denies: dyspnea or productive cough GI: Reports: nausea and vomiting; Denies: abdominal pain : Denies: flank pain Musc: Denies: extremity pain or extremity swelling Skin/Breast: Denies: rash or pruritus Neuro: Denies: headache(s) Psych: Denies: anxiety or depression Giacomo/Lymph: Denies: easy bleeding All/Imm: Denies: urticaria, throat swelling or facial swelling PFSH ED 2 PFSH: Medical History No pertinent family history Depression Family History Mother Diabetes Endometriosis Cancer Father Hypertension Denies family history of CAD (coronary artery disease) Psychiatric illness Chronic kidney disease (CKD) Lung disease Stroke Social History Substance/Drug Use: unknown Physical Exam 2 Const: COMMON NORMALS: no acute distress (Somewhat flat affect appreciated afebrile nontoxic-appearing), patient oriented x3 and healthy appearing HENMT: COMMON NORMALS: normocephalic and atraumatic HEAD & SCALP: n ormocephalic and atraumatic Eye: COMMON NORMALS: Equal, round and reactive pupils present and EOMs intact bilaterally PUPIL: Yes Equal, round and reactive pupils present Neck/C-Spine: COMMON NORMALS: full ROM, supple and no JVD Lymph: LYMPHATIC: no lymphadenopathy noted Chest: COMMONS NORMALS: normal inspection of the chest and normal palpation of entire chest wall Resp: COMMON NORMALS: normal respiratory effort, No retractions and clear to auscultation bilaterally EFFORT & INSPECTION: Yes able to speak in complete sentences and Yes symmetric chest movement AUSCULTATION: clear to auscultation bilaterally Cardio: COMMON NORMALS: no JVD, regular rate and regular rhythm RATE: r egular rate RHYTHM: regular rhythm GI: COMMON NORMALS: Normal to inspection, nondistended, normoactive bowel sounds present, Soft to palpation and non-tender (Gravid abdomen nontender nondistended normal active bowel sounds appreciate) INSPECTION: Yes normal to inspection PALPATION: Yes Soft to palpation : COMMON NORMALS: Yes no CVA tenderness BLADDER/KIDNEY EXAM: Yes no CVA tenderness Back/Pelvis: COMMON NORMALS: no CVA tenderness Extremity: COMMON NORMALS: normal to inspection and full ROM Neuro: COMMON NORMALS: patient oriented x3, CN's II-XII intact bilaterally, moves all extremities and no focal motor deficits Psych: COMMON NORMALS: mental status grossly normal, Normal thought process present, cooperative and normal affect THOUGHT PROCESS: Normal thought process present Skin: COMMON NORMALS: no rashes or lesions noted GENERAL SKIN EXAM: no rashes or lesions noted Course 2 Vital Signs: Vital signs: Vital Signs Temperature 98.4 F 04/11/24 10:48 Pulse Rate 50 L 04/11/24 13:47 Respiratory Rate 16 04/11/24 13:47 Blood Pressure 123/85 04/11/24 13:47 Pulse Oximetry 100 04/11/24 13:47 Oxygen Delivery Me thod Room Air 04/11/24 13:47 MDM - Nausea/Vomiting/Diarrhea Medical Decision Making Due to patient's symptoms and condition I was establish IV fluid provided for hydration IV Zofran was provided beta-hCG as well as labs obtained will continue to follow. Lab work revealed UTI patient was provided Macrobid patient still having some mild dry heaves will provide her some Compazine, the patient is stable for discharge home. No renal impairment appreciated patient was found to have a UTI as previously noted we will be providing her Macrobid for this advised further follow-up with PROGRAMMER OR ANALYST in the next 3 to 5 days which patient was advised return the interim if any of her symptoms persist or worsen. Lab Data 04/11/24 11:34 04/11/24 11:34 Laboratory Results WBC 16.55 10^3/uL (3.29-11.43) H 04/11/24 11:34 RBC 4.98 10^6/uL (3.85-5.65) 04/11/24 11:34 Hgb 14.90 g/dL (11.27-16.99) 04/11/24 11:34 Hct 44.3 % (36-47) 04/11/24 11:34 MCV 89.0 fl (85-98) 04/11/24 11:34 MCH 29.9 pg (27-33) 04/11/24 11:34 MCHC 33.6 g/dL (30-55) 04/11/24 11:34 RDW 14.7 % (12.1-15.1) 04/11/24 11:34 Plt Count 303 10^3/cmm (157-399) 04/11/24 11:34 MPV 9.2 fL (7.4-10.4) 04/11/24 11:34 Neut % (Auto) 73.7 % 04/11/24 11:34 Lymph % (Auto) 17.8 % 04/11/24 11:34 Owen % (Auto) 7.4 % 04/11/24 11:34 Eos % (Auto) 0.5 % 04/11/24 11:34 Baso % (Auto) 0.2 % 04/11/24 11:34 Neut # (Auto) 12.22 10^3/uL (1.8-7.7) H 04/11/24 11:34 Lymph # (Auto) 2.9 10^3/uL (0.8-4.8) 04/11/24 11:34 Owen # (Auto) 1.2 10^3/uL (0.2-0.9) H 04/11/24 11:34 Eos # (Auto) 0.1 10^3/uL (0.0-0.8) 04/11/24 11:34 Baso # (Auto) 0.0 10^3/uL (0.0-0.1) 04/11/24 11:34 Nucleated RBC % (auto) 0 % 04/11/24 11:34 Nucleated RBCs # 0.0 /100WBC 04/11/24 11:34 Sodium 135 mmol/L (136-145) L 04/11/24 11:34 Potassium 3.2 mmol/L (3.5-5.1) L 04/11/24 11:34 Chloride 95 mmol/L (98-107) L 04/11/24 11:34 Carbon Dioxide 24 mmol/L (22-29) 04/11/24 11:34 Anion Gap 19.2 (5-19) H 04/11/24 11:34 BUN 8 mg/dL (6-20) 04/11/24 11:34 Creatinine 0.5 mg/dL (0.5-0.9) 04/11/24 11:34 GFR Calculation 149.1 mL/min (90-130) H 04/11/24 11:34 Glucose 88 mg/dL (65-115) 04/11/24 11:34 Calculated Osmolality 278 mOsm/kg (285-295) L 04/11/24 11:34 Calcium 10.3 mg/dL (8.5-10.5) 04/11/24 11:34 Magnesium 2.0 mg/dL (1.7-2.3) 04/11/24 11:34 Total Bilirubin 0.8 mg/dL (0.15-1.2) 04/11/24 11:34 AST 14 U/L (0-32) 04/11/24 11:34 ALT 13 U/L (0-33) 04/11/24 11:34 Alkaline Phosphatase 74 U/L (35-105) 04/11/24 11:34 C-Reactive Protein 3.5 mg/L (0.0-4.9) 04/11/24 11:34 Total Protein 8.3 g/dL (6.6-8.7) 04/11/24 11:34 Albumin 5.2 g/dL (3.5-5.2) 04/11/24 11:34 Globulin 3.1 g/dL (1.3-4.6) 04/11/24 11:34 HCG, Qual Positive (Negative) H 04/11/24 11:34 Urine Color Dark yellow (Yellow) A 04/11/24 13:16 Urine Appearance Cloudy (CLEAR) A 04/11/24 13:16 Urine pH 6.0 (5-7) 04/11/24 13:16 Ur Specific [place] 1.037 (1.005-1.030) H 04/11/24 13:16 Urine Protein 2+ (Negative) A 04/11/24 13:16 Urine Glucose (UA) Negative (Normal) 04/11/24 13:16 Urine Ketones 3+ (Negative) H 04/11/24 13:16 Urine Blood Negative (Negative) 04/11/24 13:16 Urine Nitrate Negative (Negative) 04/11/24 13:16 Urine Bilirubin 1+ (Negative) H 04/11/24 13:16 Urine Urobilinogen 1.0 mg/dL (Negative) 04/11/24 13:16 Ur Leukocyte Esterase Trace (Negative) A 04/11/24 13:16 Urine RBC 3-5 /hpf (0-2) 04/11/24 13:16 Urine WBC 6-10 /hpf (0-5) 04/11/24 13:16 Ur Squamous Epith Cells 21-50 /hpf (0-5) 04/11/24 13:16 Amorphous Sediment Not Reportable 04/11/24 13:16 Urine Bacteria 4+ /hpf (NONE) H 04/11/24 13:16 Hyaline Casts 2.87 /lpf 04/11/24 13:16 No radiology studies performed this visit Discharge Plan Discharge Patient Disposition: Home Clinical Impression: UTI (urinary tract infection) during , Nausea and vomiting in prior to 22 weeks gestation Condition: Stable Prescriptions: New ondansetron 4 mg tablet,disintegrating 4 mg PO QID PRN (Reason: nausea and vomiting) Qty: 20 0RF promethazine 12.5 mg suppository 12.5 mg MN Q6H PRN (Reason: nausea and vomiting) Qty: 12 0RF Rx Instructions: 3 doses during day; last dose no later than 4 hr before bedtime nitrofurantoin monohyd/m-cryst [Macrobid] 100 mg capsule 100 mg PO BID 7 Days Qty: 14 0RF Rx Instructions: must administer with a meal/food No Action promethazine 25 mg tablet 25 mg PO Q6H PRN (Reason: nausea and vomiting) Qty: 20 0RF paroxetine HCl 40 mg tablet 40 mg PO DAILY M-Anival Plus 27 mg iron- 1 mg tablet 1 tab PO DAILY Discharge Orders: Discharge ED (Routine); Ordered 04/11/24 Ordered By: Jong Castellanos Referrals: Mickey Camarillo MD [Primary Care Provider] - 4-7 days Discharge Diet: Advance as tolerated Discharge Activity: Increase activity as tolerated Patient Instructions: Urinary Tract Infection in (ED), Nausea and Vomiting in (ED) Activity Restrictions/Additional Instructions: Take medications as prescribed please further follow-up with primary care and 3 to 5 days or your digital asset specialist in which please return the interim if any of your symptoms persist or worse. Coding Level of Care Code ED Arresting Gear Operator for Bishnu Alba
[2024-04-11 13:33] LABS: HCG, Serum Qual Positive (Negative)
[2024-04-11 13:37] LABS: Bilirubin Urine 1+ (Negative); Blood Urine Negative (Negative); Glucose Urine UA Negative (Normal); Ketones Urine 3+ (Negative); Leukocyte Esterase Urine Trace (Negative); Nitrate Urine Negative (Negative); Protein Urine 2+ (Negative); Urine Appearance Cloudy (CLEAR); Urine Color Dark Yellow (Yellow)
[2024-04-11 13:41] LABS: Add Urine Microscopic? YES; Bacteria Urine 4+ /hpf; Hyaline Casts Urine 2.87 /lpf; Squamous Epithelial Cell Urine 21-50 /hpf (0-5)
[2024-04-11 13:47] VITALS: BP 123/85; PULSE 50; RESP 16; O2SAT 100
[2024-04-11 13:56] LABS: C Reactive Protein 3.5 mg/L (0.0-4.9)
--- NOTE | 2024-04-11 13:56 | PC.NURSE ---
Provider ordered Zofran for patients nausea. Pt reports that she always has to have Benadryl with zofran or she will get more nauseous. Dr Castellanos notified. Pending orders at this time.
[2024-04-11 14:01] LABS: Specific Gravity, Urine 1.037 (1.005-1.030)
[2024-04-11 14:07] LABS: Add Urine Culture? No
[2024-04-11] MEDS: diphenhydrAMINE 50 mg/mL SDV 1mL 12.5 MG IVP (14:24)
[2024-04-11] MEDS: ondansetron 2 mg/ML SDV 2 mL 4 MG IVP (14:26)
[2024-04-11] MEDS: nitrofurantoin SR (BID) 100 mg Capsule PO (15:01)
[2024-04-11] MEDS: prochlorperazine 10 mg/2 mL Inj IVP (15:31)
--- NOTE | 2024-04-11 15:33 | PC.NURSE ---
Rounding with patient and she reports that she is still nauseous at this time. Pt currently smelling alcohol pad and mother at bedside rubbing her back. Pt has not had vomiting at this point. Spoke with Dr Landis for orders.
[2024-04-11 16:00] VITALS: BP 98/55; PULSE 89; RESP 16; O2SAT 100
== END 2024-04-11 16:05 | disposition home or self-care (01) ==
PROVIDERS: Physician Assistant; Emergency Provider Emergency Medicine; PCP Family Medicine
DX: O23.41 Unspecified infection of urinary tract in pregnancy, first trimester (principal); N39.0 Urinary tract infection, site not specified; O21.9 Vomiting of pregnancy, unspecified; Z3A.08 8 weeks gestation of pregnancy
CPT/HCPCS: 36415; 80053; 81001; 83735; 84703; 85025; 86140; 96361; 96374; 96375; 99284; J0780; J1200; J2405; J7030

== ENCOUNTER 2024-07-11 19:24 | Outpatient (CLI) | payer MEDICAID, SELFPAY ==
[2024-07-11] VITALS (24 sets, daily range): BP systolic 95–151; BP diastolic 53–65; PULSE 48–88; RESP 16; TEMP 36.9; O2SAT 93–100; BMI 24.0
[2024-07-11 19:40] LABS: Bilirubin Urine Negative (Negative); Blood Urine Negative (Negative); Glucose Urine UA Negative (Normal); Ketones Urine 4+ (Negative); Leukocyte Esterase Urine 2+ (Negative); Nitrate Urine Negative (Negative); Protein Urine 1+ (Negative); Specific Gravity, Urine 1.025 (1.005-1.030); Urine Appearance Turbid (CLEAR); Urine Color Dark Yellow (Yellow)
[2024-07-11 19:46] LABS: Bacteria Urine 4+ /hpf; Hyaline Casts Urine 4.52 /lpf; RBC Urine 0-2 /hpf (0-2); Squamous Epithelial Cell Urine 21-50 /hpf (0-5); Universal Test for UA Present (0); WBC Urine >100 /hpf (0-5)
[2024-07-11 20:05] LABS: Add Urine Culture? No
[2024-07-11] MEDS: promethazine 25 mg/mL SDV 1 mL IM (20:54)
[2024-07-11] MEDS: dextrose 5%-sod chloride 0.45% 1,000 ML 999 ML IV (20:54)
[2024-07-11] MEDS: nitrofurantoin SR (BID) 100 mg Capsule PO (21:24)
== END 2024-07-11 22:15 | disposition home or self-care (01) ==
LOC: OPOB 19:25 → OBGYN 19:25
PROVIDERS: PCP Family Medicine; Visit Provider Family Medicine
DX: O21.9 Vomiting of pregnancy, unspecified (principal); Z3A.00 Weeks of gestation of pregnancy not specified; R10.9 Unspecified abdominal pain
CPT/HCPCS: 36415; 81001; 96372; 99211; J2550; J7799

== ENCOUNTER 2024-08-15 15:34 | Outpatient (CLI) | payer MEDICAID, SELFPAY ==
[2024-08-15 15:40] VITALS: BMI 24.3
[2024-08-15 15:47] VITALS: BP 109/57; PULSE 85
[2024-08-15 16:01] VITALS: BP 107/69; PULSE 103
[2024-08-15 16:08] LABS: Bilirubin Urine Negative (Negative); Blood Urine Negative (Negative); Glucose Urine UA Negative (Normal); Ketones Urine 4+ (Negative); Leukocyte Esterase Urine Negative (Negative); Nitrate Urine Negative (Negative); Protein Urine 1+ (Negative); Urine Appearance Cloudy (CLEAR); Urine Color Yellow (Yellow); pH Urine 5.5 (5-7)
[2024-08-15 16:13] LABS: Bacteria Urine 4+ /hpf; Hyaline Casts Urine 4.95 /lpf; RBC Urine 0-2 /hpf (0-2)
[2024-08-15 16:16] VITALS: BP 110/57; PULSE 78
[2024-08-15 16:31] VITALS: BP 117/63; PULSE 91
[2024-08-15] MEDS: promethazine 25 mg/mL SDV 1 mL IM (17:00)
== END 2024-08-15 17:15 | disposition home or self-care (01) ==
LOC: OPOB 15:35 → OBGYN 15:36
PROVIDERS: PCP Family Medicine; Visit Provider Family Medicine
DX: O21.9 Vomiting of pregnancy, unspecified (principal); Z3A.00 Weeks of gestation of pregnancy not specified; R19.7 Diarrhea, unspecified
CPT/HCPCS: 81001; 96372; 99211; J2550

== ENCOUNTER 2024-10-06 08:56 | Outpatient (CLI) | payer MEDICAID, SELFPAY ==
[2024-10-06 09:16] VITALS: BP 157/77; PULSE 64
[2024-10-06 09:20] VITALS: BP 132/83; PULSE 55
[2024-10-06 09:45] VITALS: TEMP 35.2
[2024-10-06] MEDS: promethazine 25 mg/mL SDV 1 mL IM (09:52)
[2024-10-06 10:08] VITALS: BMI 26.4
[2024-10-06 10:13] VITALS: BP 128/81; PULSE 75
[2024-10-06 10:13] LABS: Bilirubin Urine Negative (Negative); Blood Urine Negative (Negative); Glucose Urine UA Negative (Normal); Ketones Urine Negative (Negative); Leukocyte Esterase Urine 2+ (Negative); Nitrate Urine Negative (Negative); Protein Urine Trace (Negative); Specific Gravity, Urine 1.017 (1.005-1.030); Urine Appearance Cloudy (CLEAR); Urine Color Yellow (Yellow); pH Urine 6.5 (5-7)
[2024-10-06 10:19] LABS: Add Urine Microscopic? YES; Bacteria Urine 4+ /hpf; Hyaline Casts Urine 0.81 /lpf; RBC Urine 0-2 /hpf (0-2); WBC Urine 21-50 /hpf (0-5)
[2024-10-06 10:28] VITALS: BP 132/80; PULSE 59
[2024-10-06 10:43] VITALS: BP 115/58; PULSE 75
== END 2024-10-06 11:10 | disposition home or self-care (01) ==
LOC: OPOB 09:00 → OBGYN 09:00
PROVIDERS: PCP Family Medicine; Visit Provider Family Medicine
DX: O26.899 Other specified pregnancy related conditions, unspecified trimester (principal); Z3A.00 Weeks of gestation of pregnancy not specified; R11.0 Nausea
CPT/HCPCS: 59025; 81001; 96372; 99211; J2550

== ENCOUNTER 2024-11-01 19:41 | Outpatient (CLI) | payer MEDICAID, SELFPAY ==
[2024-11-01 19:55] VITALS: BP 123/64; PULSE 84
[2024-11-01 20:00] VITALS: RESP 18; BMI 26.4
[2024-11-01 20:06] VITALS: BP 119/58; PULSE 79
[2024-11-01 20:16] VITALS: BP 118/60; PULSE 98
[2024-11-01 20:17] VITALS: BP 118/60; PULSE 98; RESP 18; TEMP 36.4
== END 2024-11-01 20:25 | disposition home or self-care (01) ==
LOC: OPOB 19:43 → OBGYN 19:43
PROVIDERS: PCP Family Medicine; Visit Provider Family Medicine
DX: O36.8190 Decreased fetal movements, unspecified trimester, not applicable or unspecified (principal); Z3A.00 Weeks of gestation of pregnancy not specified; R11.2 Nausea with vomiting, unspecified
CPT/HCPCS: 59025; 99211

== ENCOUNTER 2024-11-09 10:22 | Inpatient (IN) | payer MEDICAID, SELFPAY ==
[2024-11-09] VITALS (52 sets, daily range): BP systolic 100–165; BP diastolic 58–103; PULSE 40–93; RESP 15–17; TEMP 36.7–36.9; O2SAT 91–100; BMI 26.6
[2024-11-09 10:30] LABS: Amphetamines Screen Urine Negative (Negative); Barbiturates Screen Urine Negative (Negative); Benzodiazepines Screen Urine Negative (Negative); Cocaine Screen Urine Negative (Negative); Opiate Screen Urine Negative (Negative); PCP Screen Urine Negative (Negative); THC Screen Urine Positive (Negative)
[2024-11-09 10:52] LABS: Basophils # 0.1 10^3/uL (0.0-0.1); Basophils % 0.3 %; Eosinophils % 0.1 %; Hematocrit 38.6 % (36-47); Lymphocytes # 2.8 10^3/uL (0.8-4.8); Lymphocytes % 17.5 %; Mean Corpuscular HGB Conc 33.9 g/dL (30-55); Mean Corpuscular Volume 94.4 fl (85-98); Mean Platelet Volume 9.8 fL (7.4-10.4); Monocytes # 0.6 10^3/uL (0.2-0.9); Neutrophils # 12.28 10^3/uL (1.8-7.7); Neutrophils % 77.7 %; Nucleated Red Blood Cells % 0 %; Platelet Count 260 10^3/cmm (157-399); Red Blood Count 4.09 10^6/uL (3.85-5.65); Red Cell Distribution Width 13.1 % (12.1-15.1); White Blood Count 15.81 10^3/uL (3.29-11.43)
[2024-11-09] MEDS: lactated ringers 1,000 ML 999 ML IV (11:07)
--- NOTE | 2024-11-09 12:08 | PM.OPHPUD ---
Labor & Delivery H&P Update Date of Procedure: November 09, 2024 Date H&P Performed: 11/05/24 Changes to previous documentation: The patient in active labor with active cervical change Admission Diagnosis: 29-year-old 3 para 2-0-0-2 at 38 weeks estimated gestational age in active labor Planned procedure: Vaginal delivery Other information: The patient is an otherwise healthy 29-year-old female who presented to the hospital in active labor. She began having contractions at about 4:00 this morning. When she arrived to the hospital she was 7 cm dilated and 90% effaced. Her has been unremarkable. She has received consistent care. Her labs were also unremarkable. Her blood type is a positive. Her antibody screen is negative. She is positive for THC in her drug screen. Per she passed her glucose screen. She is rubella immune. She was GBS negative. The remainder of her infectious disease profile is within normal limits. Related Problem List Diagnoses (1) 38 weeks gestation of : A&P Assessment and plan (1) 38 weeks gestation of : I anticipate routine labor and delivery. Status: Acute PDMP PDMP Reviewed: Not Reviewed
--- NOTE | 2024-11-09 12:11 | PM.DELIVERY ---
Delivery Note: Date of delivery: November 09, 2024 Pre-delivery diagnoses: 29-year-old 3 para 2-0-0-2 at 38 weeks estimated gestational age Post-delivery diagnoses: Status post spontaneous vaginal delivery Procedure: Spontaneous vaginal delivery Delivering Physician: Liu Lenz Estimated blood loss (mL): 50 Pre-Delivery Course: The patient presented to the hospital in active labor. Her cervix was noted be 7 cm dilated to 90% effaced. An amniotomy was performed. She then quickly progressed to complete within minutes. Delivery: DELIVERY: The patient progressed to complete without difficulty. She delivered a female with a weight of 4 pounds 12 ounces with Apgars of 8, 9. The baby was delivered from the WOODROW position. and placed on the mother's abdomen. Prior to delivery of the shoulder, a nuchal cord was noted which was tight. The cord was clamped and cut and the shoulder and body were immediately delivered thereafter. There was no meconium. The placenta and 3 vessel cord were delivered intact shortly thereafter. The perineum and vaginal vault were carefully examined. No lacerations were noted. Both the mother and the baby were in stable condition. Post-Delivery Status: Good History History History 3 Term 2 0 Miscarriages/Ectopic 0 Living Children 2 A&P Assessment and plan (1) 38 weeks gestation of : I anticipate routine care. (2) (spontaneous vaginal delivery): PDMP PDMP Reviewed: Not Reviewed Coding Level of Care Code Acute Code for Chg Fwd Diagnoses 38 weeks gestation of Z3A.38 (spontaneous vaginal delivery) O80
[2024-11-09] MEDS: ondansetron 2 mg/ML SDV 2 mL 4 MG IVP (12:36)
--- NOTE | 2024-11-09 13:09 | ECG_ITS ---
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 Measurements Intervals [place] Rate: 43 P: 39 NE: 119 QRS: 84 QRSD: 93 T: 66 QT: 459 QTc: 389 Interpretive Statements SINUS BRADYCARDIA WITH SHORT NE INTERVAL Compared to ECG 11/03/2021 10:26:41 Short NE interval now present Electronically Signed On 11-10-2024 18:51:41 CDT by Doreen Kenny M.D. [email or web address]
[2024-11-09] MEDS: docusate sodium 100 mg Capsule PO (17:12)
[2024-11-09] MEDS: ibuprofen 800 mg tablet PO ×2 (17:15→20:25)
[2024-11-09] MEDS: metoclopramide 5 mg/mL SDV 2 mL 10 MG IVP (18:15)
[2024-11-09 23:44] LABS: Hematocrit 34.5 % (36-47); Mean Corpuscular HGB Conc 33.9 g/dL (30-55); Mean Corpuscular Volume 94.3 fl (85-98); Mean Platelet Volume 9.6 fL (7.4-10.4); Platelet Count 240 10^3/cmm (157-399); Red Blood Count 3.66 10^6/uL (3.85-5.65); White Blood Count 17.32 10^3/uL (3.29-11.43)
[2024-11-10 03:15] VITALS: BP 113/69; PULSE 41; RESP 16; TEMP 36.9; O2SAT 99
[2024-11-10 06:24] VITALS: BP 104/62; PULSE 79; RESP 16; TEMP 36.8
[2024-11-10 09:40] VITALS: BP 103/57; PULSE 57; RESP 16; TEMP 36.5; O2SAT 98
[2024-11-10] MEDS: docusate sodium 100 mg Capsule PO (09:40)
[2024-11-10] MEDS: PRENATAL VIT NO.130/IRON/FOLIC 1 EACH TABLET PO (09:40)
[2024-11-10] MEDS: ibuprofen 800 mg tablet PO ×2 (09:40→16:51)
[2024-11-10 16:50] VITALS: BP 123/60; PULSE 54; RESP 16; TEMP 36.7; O2SAT 98
--- NOTE | 2024-11-10 18:48 | P.DS_ITS ---
Discharge Providers CERTIFIED NOVELL ENGINEER Date of Admission: 11/09/24 10:22 Date of Discharge: 11/10/24 Attending Provider at Admission: Liu Lenz MD Attending Provider at Discharge: Liu Lenz MD Primary Care Provider: Mickey Camarillo MD Diagnoses at Discharge Discharge Diagnosis (1) 38 weeks gestation of : Status: Acute (2) (spontaneous vaginal delivery): Status: Acute Reason for Visit Reason for Visit: CTX Hospital Course Hospital Course The patient presented to the hospital in active labor. She quickly progressed to complete and had an unremarkable delivery of a healthy but small for gestational age female . Her course was notable for having sinus bradycardia postdelivery. She also had some nausea vomiting. That resolved spontaneously. Her pulse improved to the 50s and 60s. She had no symptoms of bradycardia. Information Peripartum Data: Infant Delivery Method: Vaginal Physical Exam Narrative: The patient is alert. She appears comfortable. Her heart has bradycardic rate and rhythm with no murmurs appreciated. Lungs are clear to auscultation bilaterally. Her fundus is firm and below the umbilicus. History History History 3 Term 2 0 Miscarriages/Ectopic 0 Living Children 2 Discharge Data Studies Completed and Pending Laboratory Results WBC 17.32 10^3/uL (3.29-11.43) H 11/09/24 23:37 RBC 3.66 10^6/uL (3.85-5.65) L 11/09/24 23:37 Hgb 11.70 g/dL (11.27-16.99) 11/09/24 23:37 Hct 34.5 % (36-47) L 11/09/24 23:37 MCV 94.3 fl (85-98) 11/09/24 23:37 MCH 32.0 pg (27-33) 11/09/24 23:37 MCHC 33.9 g/dL (30-55) 11/09/24 23:37 RDW 13.0 % (12.1-15.1) 11/09/24 23:37 Plt Count 240 10^3/cmm (157-399) 11/09/24 23:37 MPV 9.6 fL (7.4-10.4) 11/09/24 23:37 Neut % (Auto) 77.7 % 11/09/24 10:34 Lymph % (Auto) 17.5 % 11/09/24 10:34 Glenn % (Auto) 4.0 % 11/09/24 10:34 Eos % (Auto) 0.1 % 11/09/24 10:34 Baso % (Auto) 0.3 % 11/09/24 10:34 Neut # (Auto) 12.28 10^3/uL (1.8-7.7) H 11/09/24 10:34 Lymph # (Auto) 2.8 10^3/uL (0.8-4.8) 11/09/24 10:34 Glenn # (Auto) 0.6 10^3/uL (0.2-0.9) 11/09/24 10:34 Eos # (Auto) 0.0 10^3/uL (0.0-0.8) 11/09/24 10:34 Baso # (Auto) 0.1 10^3/uL (0.0-0.1) 11/09/24 10:34 Nucleated RBC % (auto) 0 % 11/09/24 10:34 Nucleated RBCs # 0.0 /100WBC 11/09/24 10:34 Urine Opiates Screen Negative ng/mL (Negative) 11/09/24 10:14 Ur Barbiturates Screen Negative ng/mL (Negative) 11/09/24 10:14 Ur Phencyclidine Scrn Negative ng/mL (Negative) 11/09/24 10:14 Ur Amphetamines Screen Negative ng/mL (Negative) 11/09/24 10:14 U Benzodiazepines Scrn Negative ng/mL (Negative) 11/09/24 10:14 Urine Cocaine Screen Negative ng/mL (Negative) 11/09/24 10:14 U Marijuana (THC) Screen Positive ng/mL (Negative) H 11/09/24 10:14 Blood Type A Positive 11/09/24 10:34 Rho(D) Type Rh positive 11/09/24 10:34 Antibody Screen Negative 11/09/24 10:34 Vitals Last Vital Signs Temp 98.0 F 11/10/24 16:50 Pulse 54 L 11/10/24 16:50 Resp 16 11/10/24 16:50 BP 123/60 11/10/24 16:50 Pulse Ox 98 11/10/24 16:50 O2 Del Method Room Air 11/10/24 16:50 Results Labs OB ([facility]): Blood Type A Positive 11/09/24 Antibody Screen Negative 11/09/24 Hct 34.5 % (36-47) L 11/09/24 Hgb 11.70 g/dL (11.27-16.99) 11/09/24 Rho(D) Type Rh positive 11/09/24 Plt Count 240 10^3/cmm (157-399) 11/09/24 HCG, Qual Positive (Negative) H 04/11/24 Urine Opiates Screen Negative ng/mL (Negative) 11/09/24 Ur Barbiturates Screen Negative ng/mL (Negative) 11/09/24 Ur Phencyclidine Scrn Negative ng/mL (Negative) 11/09/24 Ur Amphetamines Screen Negative ng/mL (Negative) 11/09/24 U Benzodiazepines Scrn Negative ng/mL (Negative) 11/09/24 Urine Cocaine Screen Negative ng/mL (Negative) 11/09/24 U Marijuana (THC) Screen Positive ng/mL (Negative) H Discharge Plan Discharge Patient Disposition: Home Condition: Stable Prescriptions: New ibuprofen 800 mg Tablet 800 mg PO TID Qty: 45 0RF Continued M- Plus 27 mg iron- 1 mg tablet 1 tab PO DAILY ondansetron 4 mg tablet,disintegrating 4 mg PO QID PRN (Reason: nausea and vomiting) Qty: 20 0RF Discharge Orders: Discharge Order (Routine); Ordered 11/10/24 Ordered By: Liu Lenz Referrals: Liu Lenz MD [Physician] - 6 Weeks Discharge Diet: Usual diet Discharge Activity: Limit activity as instructed Patient Instructions: Opioid Safety Discharge Attestations CERTIFIED NOVELL ENGINEER Time Spent in Discharge Care*: less than 30 min Status at Discharge: Cognitive status at discharge: cognitively intact , Behavioral status at discharge: cooperative , Coding Level of Care Code Acute Code for Chg Fwd Diagnoses 38 weeks gestation of Z3A.38 (spontaneous vaginal delivery) O80
[2024-11-10 21:35] VITALS: BP 99/66; PULSE 66; RESP 16; TEMP 37; O2SAT 98
== END 2024-11-10 21:42 | disposition home or self-care (01) | DRG 806 ==
LOC: OPOB 10:23 → OBGYN 10:23
PROVIDERS: Admitting Provider Family Medicine; PCP Family Medicine; Visit Provider Family Medicine
DX: O69.81X0 Labor and delivery complicated by cord around neck, without compression, not applicable or unspecified (principal); O99.324 Drug use complicating childbirth; Z37.0 Single live birth; Z3A.38 38 weeks gestation of pregnancy; F12.10 Cannabis abuse, uncomplicated
CPT/HCPCS: 36415; 59025; 59409; 80306; 85025; 85027; 86850; 86900; 93005; 99211; J2405; J2765; J7120; J9999